=== PATIENT | male | born 1965 | race Caucasian/White ===

== ENCOUNTER → 2017-01-14 | Outpatient (CLI) | payer BC ==
[~2017-01-14] MED LIST: ATV1 PO; CRD4 PO; CYCL10TA6 PO; DULO1CAP39 PO; OXYC1TAB3 PO; PANT40TA PO; RXC5 PO; SIMV20TA2 PO; TRAM-10 PO
--- NOTE | 2017-01-14 17:19 | DIAGNOSTIC IMAGING REPORT ---
L VENOUS DOPP LOWER EXT UNILAT CLINICAL HISTORY: L LEG PAIN, R/O DVT pain. Edema. TECHNIQUE: Venous Doppler COMPARISON STUDY: None FINDINGS: Normal venous Doppler exam. Compressibility and augmentation characteristics are unremarkable. There is a clinically palpable nodule which corresponds to a small noncompressible superficial branch of the greater saphenous vein. This appears to show superficial thrombosis. IMPRESSION: 1. Study is negative for deep venous thrombosis. 2. At the site of clinical discomfort/palpable nodularity is a small section of thrombosed superficial vein originating from the greater saphenous vein. This consistent with a small focus of superficial thrombophlebitis The above report was generated using voice recognition software. It may contain grammatical, syntax or spelling errors. Electronically signed by: Odell Briggs M.D. 01/14/2017 5:18 PM Dictated Date/Time: 01/14/2017 5:16 PM
== END | disposition home or self-care (01) ==
LOC: C.ULTR 16:36
PROVIDERS: ATTEND Student in an Organized Health Care Education/Training Program
DX: M79.605 Pain in left leg (principal); I82.812 Embolism and thrombosis of superficial veins of left lower extremity

== ENCOUNTER 2017-06-02 20:02 | Emergency (ER) | payer BC ==
[~2017-06-02] VITALS: Ht 185.4 cm; Wt 138.8 kg
[2017-06-02 20:06] VITALS: TEMP 37.2; Ht 185.4 cm; Wt 138.8 kg
[2017-06-02] MEDS ORDERED: IBUPROFEN 200 MG TAB PO STA (20:46)
[2017-06-02] MEDS ORDERED: HYDROmorphone INJ 1 MG/ML SYR IM ONE (21:00)
--- NOTE | 2017-06-02 21:36 | EMERGENCY ROOM VISIT NOTE ---
History First contact with patient: 20:36 Chief Complaint: SHOULDER PAIN Stated Complaint: INJURY TO R SHOULDER History of Present Illness The patient is a 51 year old male who presents to the Emergency Room with complaints of severe right shoulder pain that started yesterday when he was lifting a heavy object. The patient reached out in front of him with his right arm to shredder picker something heavy. He was trying to swing around to his right side he felt a pop and intense pain in his right shoulder. Initially, he had some numbness over the pain in the shoulder. That has subsided. The pain is significant with any movement. He has tried Percocet at home with no relief. 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 Review of Systems 6 system review negative. Please see pertinent positives in the history of present illness section. Past Medical/Surgical History Medical Problems: (1) Lumbar stenosis with neurogenic claudication Hypertension Social History Smoking Status: Never Smoker Current/Historical Medications Scheduled Methylprednisolone (Medrol Dosepak), 1 PKT PO UD Pantoprazole (Protonix), 40 MG PO HS Simvastatin (Zocor), 20 MG PO QPM Scheduled PRN Oxycodone Ir (Roxicodone Ir), 1-2 TAB PO Q4H PRN for Pain Tramadol (Ultram), 100 MG PO Q8H PRN for Pain Allergies Coded Allergies: No Known Allergies (Unverified , 06/02/17) Physical Exam Vital Signs Date Time Temp Pulse Resp B/P (MAP) Pulse Ox O2 Delivery O2 Flow Rate FiO2 06/02/17 22:27 104 18 136/93 95 Room Air 06/02/17 20:06 37.2 107 18 175/98 96 Room Air Physical Exam GENERAL: 51-year-old male, pacing, obviously in distress, SKIN: The skin was without rashes, erythema, edema, or bruising. HEAD: Normocephalic atraumatic. HEART: Regular rate and rhythm without murmurs gallops or rubs. LUNGS: Clear to auscultation bilaterally without wheezes, rales or rhonchi. No accessory muscle use. MUSCULOSKELETAL: RUE: Severe tenderness to palpation over the anterior aspect and the lateral aspect of the right shoulder. Range of motion of the shoulder is severely limited secondary to pain. Sensation over the deltoid is intact. Cad Designer strength 5/5. Radial pulse intact. Sensation in the fingers is intact. NEURO: Patient was alert and oriented to person place and time. Normal sensation to touch. No focal neurological deficits. Medical Decision & Procedures ER Provider Diagnostic Interpretation: Right shoulder x-ray Patient Name: SETH CASTRO Unit Number: [id number] Dictated: 06/02/172134 Transcribed: 06/02/172134 JRB Printed Date/Time: [~ rep prt dt]/[~ rep prt tm] [~ rep ct labl] - [~ rep ct ivnm] [facility] Radiology [place] [address] Dictated: 06/02/172134 Transcribed: 06/02/172134 JRB Printed Date/Time: [~ rep prt dt]/[~ rep prt tm] [~ rep ct labl] - [~ rep ct ivnm] IMPRESSION: 1. No acute fracture or dislocation. 2. Right shoulder rotator cuff calcific tendinosis. The above report was generated using voice recognition software. It may contain grammatical, syntax or spelling errors. Electronically signed by: Sorin Carbajal M.D. 06/02/2017 9:37 PM Dictated Date/Time: 06/02/2017 9:35 PM The status of this report is Signed. Draft = Not yet reviewed or approved by Radiologist. Signed = Reviewed and approved by Radiologist. <AttendingPhy></AttendingPhy> <FamilyPhy>Karly Oliveros D.O.</FamilyPhy> < PrimaryPhy>Karly Oliveros D.O.</PrimaryPhy> <UnitNumber>[id number]</ UnitNumber> <VisitNumber>[id number]</VisitNumber> <PatientName>SETH CASTRO </PatientName> <DateOfBirth>1965</DateOfBirth> <Location>[facility]</Location> <ServiceDate>06/02/17</ServiceDate> <MNE>ESINDI</MNE> <OrderingPhy>Georgina Anderson PA-C</OrderingPhy> <OrderingPhyMNE>f rep ord dr pineda</OrderingPhyMNE> < DictatingPhyMNE>f rep dict dr pineda</DictatingPhyMNE> <CCListMNE>f rep ct mne</ CCListMNE> <AdmittingPhyMNE>f pt admit dr pineda</AdmittingPhyMNE> <AttendingPhyMNE >f pt attend dr pineda</AttendingPhyMNE> <ConsultingPhyMNE>f pt consult dr pineda</ConsultingPhyMNE> <FamilyPhyMNE>f pt fam dr pineda</FamilyPhyMNE> <OtherPhyMNE>f pt other dr pineda</OtherPhyMNE> < PrimaryPhyMNE>f pt prim care dr pineda</PrimaryPhyMNE> <ReferringPhyMNE>f pt referring dr pineda</ReferringPhyMNE> Medications Administered Medications (Trade) Dose Ordered Sig/Aristeo Route Start Time Stop Time Status Last Admin Dose Admin Hydromorphone HCl (Dilaudid Inj) 1 mg ONE ONCE IM 06/02/17 21:00 06/02/17 21:01 DC 06/02/17 20:52 1 MG Ibuprofen (Advil Tab) 800 mg NOW STAT PO 06/02/17 20:46 06/02/17 20:49 DC 06/02/17 20:52 800 MG Dexamethasone Sodium Phosphate (Decadron Inj) 10 mg NOW ONCE PO 06/02/17 22:15 06/02/17 22:16 DC 06/02/17 22:12 10 MG Oxycodone HCl (Roxicodone Immediate Rel 5MG Home Pack) 1 homepack UD ONCE PO 06/02/17 22:15 06/02/17 22:16 DC 06/02/17 22:13 1 HOMEPACK Hydromorphone HCl (Dilaudid Tab) 2 mg NOW STAT PO 06/02/17 22:03 06/02/17 22:04 DC 06/02/17 22:12 2 MG ED Course The patient was seen and examined He was medicated with Dilaudid 1 mg IM and Motrin 800 mg by mouth Imaging was performed and reviewed Upon reassessment, the patient was still in intense pain. He was given additional Dilaudid 2 mg tab by mouth. He was also given Decadron 10 mg by mouth. The findings were discussed with the patient He was given an arm sling He was comfortable being discharged home. He was given oxycodone home pack. Discharge instructions were reviewed, and he was discharged in good condition Medical Decision Differential diagnosis: Dislocation, fracture, contusion, ligamentous injury This patient is a 51-year-old male presents to the emergency department with severe pain in the right shoulder. On exam, he had significant decreased range of motion. X-rays were negative for fracture. I believe this is likely a significant rotator cuff injury. I had a hard time getting the patient's pain under control, however he was comfortable enough to go home. He will follow up with orthopedics tomorrow. He will keep the sling in place. He was also instructed to sleep in an upright position. He will return with any new or concerning symptoms. This chart was completed in part utilizing [employer] Speech Voice Recognition software. Attempts were made to minimize the grammatical errors, random word insertions, pronoun errors and incomplete sentences. Any formal questions or concerns about the content, text or information contained within the body of this dictation should be directly addressed to the provider for clarification. Impression Primary Impression: Right shoulder injury Departure Information Dispostion Home / Self-Care Condition GOOD Prescriptions Methylprednisolone (MEDROL DOSEPAK) 4 Mg Scotty 1 PKT PO UD for 6 Days, #1 PKT Prov: Georgina Anderson PA-C 06/02/17 Oxycodone Ir (Roxicodone Ir) 5 Mg Tab 1-2 TAB PO Q4H Y for Pain, #20 TAB For Initial Treatment Prov: Georgina Anderson PA-C 06/02/17 Referrals Karly Oliveros D.O. (PCP) Mani Alston M.D. Patient Instructions [facility] Additional Instructions You have been evaluated in the emergency department for severe pain in the right shoulder. This is likely a rotator cuff injury. Ibuprofen 800 mg every 8 hours Please take Medrol Dosepak as prescribed Oxycodone Immediate Release (OxyIR) 5mg: Take 1-2 pills every four hours for pain. Avoid alcohol, operating machinery or dangerous equipment, working on ladders or roofs, DRIVING, or situations where being under the influence may be dangerous. It is recommended to use an [id number] stool softener such as Colace, 100mg twice daily while taking this medication to avoid constipation. Please rest the arm in a sling Apply ice for 20 minute intervals at a time over the next 48 hours It is easier/less painful sleeping in a more upright position such as a recliner Please do not hesitate to return to the emergency department with any new, worsening or concerning symptoms Call back to the emergency department if you have difficulty getting an appointment the number here is [phone]
--- NOTE | 2017-06-02 21:38 | DIAGNOSTIC IMAGING REPORT ---
R SHOULDER MIN 2 VIEWS ROUTINE HISTORY: 51 years-old Male R anterior and lateral shoulder pain acute right shoulder pain without reported trauma. COMPARISON: Chest radiographs 07/06/2015 TECHNIQUE: 3 views of the right shoulder FINDINGS: 1.4 cm linear calcification adjacent to the greater tuberosity posterior facet is noted, likely involving the infraspinatus. No acute fracture or dislocation identified. Mild glenohumeral with moderate AC joint degenerative changes. Marginal spurring is seen about the acromium and distal clavicle. Soft tissues are unremarkable. IMPRESSION: 1. No acute fracture or dislocation. 2. Right shoulder rotator cuff calcific tendinosis. The above report was generated using voice recognition software. It may contain grammatical, syntax or spelling errors. Electronically signed by: Sorin Carbajal M.D. 06/02/2017 9:37 PM Dictated Date/Time: 06/02/2017 9:35 PM
[2017-06-02] MEDS ORDERED: HYDROmorphone HCL 2 MG TAB PO STA (22:03)
[2017-06-02] MEDS ORDERED: OXYC1TAB3 PO (22:06)
[2017-06-02] MEDS ORDERED: METH4PAK PO (22:06)
[2017-06-02] MEDS ORDERED: DEXAMETHASONE SOD INJ 4 MG/ML VIAL PO ONE (22:15)
[2017-06-02] MEDS ORDERED: OXYCODONE IR HOME PACK PO ONE (22:15)
[2017-06-02 22:27] VITALS: BP 136/93; PULSE 104; O2SAT 95
== END 2017-06-02 22:29 | disposition home or self-care (01) ==
LOC: C.EDB 20:03 → C.EDD 22:29
DX: S49.91XA Unspecified injury of right shoulder and upper arm, initial encounter (principal); X50.0XXA Overexertion from strenuous movement or load, initial encounter; I10 Essential (primary) hypertension

== ENCOUNTER 2021-09-22 09:39 | Inpatient (IN) ==
[2021-09-22] MEDS ORDERED: ONDANSETRON INJ 2 MG/ML 2 ML VIAL IV STA (09:59)
[2021-09-22] MEDS ORDERED: HYDROmorphone INJ 1 MG/ML SYRINGE IV STA (09:59)
[2021-09-22] MEDS ORDERED: SODIUM CHLORIDE 0.9% 1000ML 1,000 ML IV STA (09:59)
[2021-09-22 10:29] LABS: Basophils # (auto) 0.06 K/uL (0-0.2); Basophils % (auto) 0.7 %; Eosinophils # (auto) 0.31 K/uL (0-0.50); Eosinophils % (auto) 3.7 %; Hematocrit (blood only) 43.6 % (40.1-51.0); Hemoglobin 15.2 g/dl (14.0-18.0); Immature Granulocytes # (auto) 0.03 K/uL (0.00-0.02); Immature Granulocytes % (auto) 0.4 %; Lymphocytes # (auto) 1.06 K/uL (1.2-3.4); Lymphocytes % (auto) 12.7 %; Mean Corpuscular Hgb Conc 34.9 g/dL (32.0-36.0); Mean Platelet Volume 9.5 fL (9.4-12.4); Monocytes # (auto) 0.79 K/uL (0.24-0.82); Monocytes % (auto) 9.5 %; Neutrophils # (auto) 6.09 K/uL (1.4-6.5); Platelet Count 304 K/uL (130-400); RDW Coefficient of Variation 12.4 % (11.5-14.5); RDW Standard Deviation 38.5 fL (36.4-46.3); Red Blood Count 5.07 M/uL (4.63-6.08); White Blood Count 8.34 K/ul (4.8-10.8)
[2021-09-22 10:53] LABS: Albumin Globulin Ratio 1.4 (0.9-2); Albumin Level 4.2 gm/dl (3.4-5.0); BUN Creatinine Ratio 13.8 (10-20); Bilirubin,Total 0.8 mg/dl (0.2-1.0); Calcium 9.4 mg/dl (8.5-10.1); Creatinine Clr Calc Pharmacy 73.7 ml/min; Est GFR (Non-African American) 47.5 ml/min; Potassium 4.6 mmol/L (3.5-5.1); Total Protein 7.2 gm/dl (6.0-8.3)
--- NOTE | 2021-09-22 11:13 | Emergency Department Note ---
History of Present Illness General Chief complaint: Kidney Stone Stated complaint: KIDNEY STONE Time Seen by Provider: 09/22/21 09:44 History of Present Illness Maximum Pain Intensity: 9 56-year-old male who presents to the emergency department with complaint of persistent and severe left flank pain from a kidney stone. The patient reports that he is now approximately 1.5 weeks with this pain. The patient was initially seen in our emergency department on 09/16/[address] showing a distal left ureteral calculus. He returned on 09/19 and 09/20 with ultrasounds on both visits that did not show any significant hydronephrosis. The patient has followed with his PCP, Dr. Navarro, who tried to consult urology, but the patient reports that they would not see him. He returns because of u ncontrollable pain rated a 10 out of 10. Patient has had nausea without vomiting. He denies any fever or chills. Home Medications Medication Instructions Recorded Confirmed Type doxazosin 4 mg tablet 4 mg PO DAILY 07/26/18 09/22/21 History pantoprazole 40 mg tablet,delayed 40 mg PO DAILY 07/26/18 09/22/21 History release simvastatin 20 mg tablet 20 mg PO HS 07/26/18 09/22/21 History ondansetron 4 mg disintegrating 4 mg PO Q6H PRN #15 tab 09/16/21 09/22/21 Rx tablet oxycodone 5 mg tablet 5 mg PO Q4H PRN #15 tab 09/16/21 09/22/21 Rx tamsulosin 0.4 mg capsule (Flomax) 0.4 mg PO DAILY #10 cap 09/16/21 09/22/21 Rx lisinopril 2.5 mg tablet 2.5 mg PO DAILY 09/19/21 09/22/21 History oxycodone 5 mg tablet 10 mg PO Q6H PRN #14 tab 09/19/21 09/22/21 Rx apixaban 5 mg (74 tabs) tablets in 5 mg PO BID #74 ea 09/20/21 09/22/21 Rx a dose pack (Eliquis) glipizide 2.5 mg-metformin 500 mg 2.5 - 500 tab PO DAILY 09/22/21 09/22/21 History tablet Allergies Allergy/AdvReac Type Severity Reaction Status Date / Time No Known Allergies Allergy Verified 09/19/21 00:03 Past Med/Surg History Medical History (Updated 09/22/21 @ 15:57 by Taisha Carlos PA-C) Acute deep vein thrombosis (DVT) of left lower extremity Kidney stones Lumbar stenosis with neurogenic claudication Surgical History No pertinent past surgical history Family History Other Family history non-contributory Social History Smoking Status: Former smoker (30 y ago) Tobacco Type: Cigarettes Hx Substance Use: No Preferred Language: Arabic marital status: Current Living Situation: Spouse current occupational status: employed Feels Safe at Home: Yes Review of Systems 10 system review was performed and was negative except for pertinent positives and negatives as indicated in history of present illness Physical Exam Vital Signs Vital Signs - 24 hr 09/22/21 09:41 09/22/21 09:48 09/22/21 11:40 Temperature 36.6 C Temperature Source Temporal Artery Scan Pulse Rate 98 H Pulse Rate [Apical] Pulse Rate [Radial] 91 H Pulse Rhythm [Apical] Pulse Rhythm [Radial] Regular Pulse Strength [Apical] Respiratory Rate 16 18 Respiratory Effort / Characteristics Non-Labored Respiratory Depth Normal Respiratory Pattern Regular Blood Pressure 179/104 H Blood Pressure [Left Arm] 179/104 H 165/107 H Blood Pressure Mean 129 Blood Pressure Mean [Left Arm] 129 126 Blood Pressure Position [Left Arm] Pulse Oximetry 94 96 Oxygen Delivery Method Room Air Room Air Oxygen Flow Rate Sepsis Recent Fever Within 48 Hours No Sepsis New/Unexplained Change in Mental Status No Sepsis Action Taken by Nursing No Action Required 09/22/21 13:00 09/22/21 13:52 09/22/21 14:03 Temperature 36.7 C Temperature Source Oral Pulse Rate 91 H Pulse Rate [Apical] 89 Pulse Rate [Radial] 92 H Pulse Rhythm [Apical] Regular Pulse Rhythm [Radial] Regular Pulse Strength [Apical] Normal Respiratory Rate 18 18 20 Respiratory Effort / Characteristics Non-Labored Non-Labored Spontaneous Normal for Patient Respiratory Depth Normal Normal Respiratory Pattern Regular Regular Blood Pressure 160/107 H Blood Pressure [Left Arm] 163/105 H 136/90 Blood Pressure Mean Blood Pressure Mean [Left Arm] 124 105 Blood Pressure Position [Left Arm] Semi-fowlers Pulse Oximetry 94 96 97 Oxygen Delivery Method Room Air Room Air Room Air Oxygen Flow Rate Sepsis Recent Fever Within 48 Hours Sepsis New/Unexplained Change in Mental Status Sepsis Action Taken by Nursing 09/22/21 15:33 09/22/21 15:40 09/22/21 15:50 Temperature 36.6 C Temperature Source Temporal Artery Scan Pulse Rate Pulse Rate [Apical] 99 H 83 95 H Pulse Rate [Radial] Pulse Rhythm [Apical] Regular Regular Regular Pulse Rhythm [Radial] Pulse Strength [Apical] Normal Normal Normal Respiratory Rate 14 16 18 Respiratory Effort / Characteristics Non-Labored Spontaneous Non-Labored Spontaneous Non-Labored Spontaneous Respiratory Depth Normal Normal Normal Respiratory Pattern Regular Regular Regular Blood Pressure Blood Pressure [Left Arm] 158/102 H 129/71 120/91 Blood Pressure Mean Blood Pressure Mean [Left Arm] 120 90 100 Blood Pressure Position [Left Arm] Semi-fowlers Semi-fowlers Semi-fowlers Pulse Oximetry 99 99 96 Oxygen Delivery Method Oxymask Room Air Room Air Oxygen Flow Rate 6 Sepsis Recent Fever Within 48 Hours Sepsis New/Unexplained Change in Mental Status Sepsis Action Taken by Nursing 09/22/21 16:00 Temperature Temperature Source Pulse Rate Pulse Rate [Apical] 89 Pulse Rate [Radial] Pulse Rhythm [Apical] Regular Pulse Rhythm [Radial] Pulse Strength [Apical] Normal Respiratory Rate 20 Respiratory Effort / Characteristics Non-Labored Spontaneous Respiratory Depth Normal Respiratory Pattern Regular Blood Pressure Blood Pressure [Left Arm] 133/90 Blood Pressure Mean Blood Pressure Mean [Left Arm] 104 Blood Pressure Position [Left Arm] Semi-fowlers Pulse Oximetry 95 Oxygen Delivery Method Room Air Oxygen Flow Rate Sepsis Recent Fever Within 48 Hours Sepsis New/Unexplained Change in Mental Status Sepsis Action Taken by Nursing CONSTITUTIONAL: Obese male that appears in severe discomfort. HEENT: No scleral icterus or conjunctival injection/pallor. RESPIRATORY: Clear to auscultation bilaterally with no wheezing, crackles, rhonchi or stridor. CARDIOVASCULAR: Regular rate and rhythm with no murmurs, rubs or gallops. GASTROINTESTINAL: Bowel sounds present in all quadrants. No abdominal tenderness to palpation or CVA tenderness. MUSCULOSKELETAL: Full range of motion of all joints without discomfort. No tenderness to palpation through the ribs or thoracolumbar spine. INTEGUMENTARY: No rash or other significant dermatologic conditions noted. HEMATOLOGIC: No ecchymosis or petechiae. PSYCHIATRIC: Positive affect. NEUROLOGIC: No focal neurologic deficits noted. Course Course Patient history and physical exam were performed. Nurses notes were reviewed. Vital signs were reviewed, showing a markedly elevated blood pressure. I also reviewed a portion of prior medical records, including confirmation from his first visit on 09/16/2021 that he had a 3 mm distal left ureteral calculus. Two subsequent ultrasound studies did not show evidence for hydronephrosis. IV access was established, and labs were drawn. The patient was hydrated with a liter normal saline, and administered IV Toradol and Zofran. Review of labs shows a normal white count with 3% bands and no left shift. CMP shows mild hyponatremia. Creatinine is elevated at 1.6, and similar to his prior recent labs. Random glucose is also elevated at 151. Urinalysis shows no hematuria or signs of infection. Noncontrast CT of the abdomen and pelvis confirms an obstructing 5 mm distal left ureteral calculus with mild hydroureteronephrosis. Additional nonobstructing bilateral nephrolithiasis is also noted. Findings were discussed with the patient. He was still complaining of severe pain after only about 10 minutes of relief. He was administered additional IV Dilaudid, and subsequently required an additional dose of IV morphine. The case was further discussed with Dr. Soria, ED attending physician, as well as MEDINA Solorio with [facility]. The case was further discuss ed with Dr. Sarmiento, urologist, who agrees to take the patient to the OR for further surgical intervention. Because he is currently on Eliquis, and the case will be later this afternoon, he has recommended observation, therefore admission by the hospitalist service. The case was then further discussed with Dr. Pedersen, [facility] service. Please see their dictations for further treatment and final disposition. COVID-19 test was negative. The patient was administered IV Ancef for coverage prior to his procedure. Administered Medications Discontinued Medications Hydromorphone HCl (Hydromorphone Inj 1 Mg/Ml Syringe) 1 mg IV NOW STA Stop: 09/22/21 10:00 Last Admin: 09/22/21 10:16 Dose: 1 mg Documented by: [id number] Hydromorphone HCl (Hydromorphone Inj 0.5 Mg/0.5 Ml Syr) 0.5 mg IV NOW STA Stop: 09/22/21 11:53 Last Admin: 09/22/21 11:57 Dose: 0.5 mg Documented by: [id number] Sodium Chloride (Nss 1000ml) 1,000 mls @ 999 mls/hr IV .Q1H1M STA Stop: 09/22/21 10:59 Last Infusion: 09/22/21 11:17 Dose: 0 mls/hr Documented by: [id number] Admin: 09/22/21 10:16 Dose: 999 mls/hr Documented by: [id number] Cefazolin Sodium (Ancef 2000mg) 2,000 mg in 15 mls @ 3.75 mls/min IV PREOP ONE Stop: 09/22/21 13:48 Last Admin: 09/22/21 14:50 Dose: 3.75 mls/min Documented by: [id number] Morphine Sulfate (Morphine Sulfate 10 Mg/Ml Carp/Vial) 6 mg IV NOW STA Stop: 09/22/21 12:32 Last Admin: 09/22/21 12:48 Dose: Not Given Documented by: [id number] Morphine Sulfate (Morphine Sulfate 4 Mg/Ml 1 Ml Carp\Vial) Confirm Administered Dose 4 mg .ROUTE .STK-MED ONE Stop: 09/22/21 12:44 Last Admin: 09/22/21 12:47 Dose: 4 mg Documented by: [id number] Morphine Sulfate (Morphine Sulfate 2 Mg/Ml Carp) Confirm Administered Dose 2 mg .ROUTE .STK-MED ONE Stop: 09/22/21 12:45 Last Admin: 09/22/21 12:47 Dose: 2 mg Documented by: [id number] Ondansetron HCl (Ondansetron Inj 2 Mg/Ml 2 Ml Vial) 4 mg IV NOW STA Stop: 09/22/21 10:00 Last Admin: 09/22/21 10:16 Dose: 4 mg Documented by: [id number] Medical Decision Making Medical Records Attestation: I reviewed the patient's medical records. Home Medications Current Medication List: was personally reviewed by me Laboratory Data Attestation: I reviewed the patient's lab results. Result diagrams: 09/22/21 10:10 09/22/21 10:10 Lab Results 09/22/21 09/22/21 09/22/21 Range/Units 10:10 10:10 12:00 WBC 8.34 (4.8-10.8) K/ul RBC 5.07 (4.63-6.08) M/uL Hgb 15.2 (14.0-18.0) g/dl Hct 43.6 (40.1-51.0) % MCV 86.0 (80.0-100.0) fL MCH 30.0 (25.0-34.0) pg MCHC 34.9 (32.0-36.0) g/dL RDW Std Deviation 38.5 (36.4-46.3) fL RDW Coeff of Kirk 12.4 (11.5-14.5) % Plt Count 304 (130-400) K/uL MPV 9.5 (9.4-12.4) fL Immature Gran % (Auto) 0.4 % Neut % (Auto) 73.0 % Lymph % (Auto) 12.7 % [place] % (Auto) 9.5 % Eos % (Auto) 3.7 % Baso % (Auto) 0.7 % Neut # (Auto) 6.09 (1.4-6.5) K/uL Lymph # (Auto) 1.06 L (1.2-3.4) K/uL [place] # (Auto) 0.79 (0.24-0.82) K/uL Eos # (Auto) 0.31 (0-0.50) K/uL Baso # (Auto) 0.06 (0-0.2) K/uL Immature Gran # (Auto) 0.03 H (0.00-0.02) K/uL Sodium 134 L (136-145) mmol/L Potassium 4.6 (3.5-5.1) mmol/L Chloride 102 (98-107) mmol/L Carbon Dioxide 25 (21-32) mmol/L Anion Gap 7 (3-11) BUN 22 (6-23) mg/dl Creatinine 1.60 H (0.6-1.4) mg/dl Est Cr Clr Drug Dosing 73.7 ml/min Est GFR ( Amer) 55.0 ml/min Est GFR (Non-Af Amer) 47.5 ml/min BUN/Creatinine Ratio 13.8 (10-20) Glucose 151 H (70-99(Fasting)) mg/dl POC Glucose (70-99) mg/dl Calcium 9.4 (8.5-10.1) mg/dl Total Bilirubin 0.8 (0.2-1.0) mg/dl AST 16 (13-39) U/L ALT 17 (7-52) U/L Alkaline Phosphatase 54 (34-104) U/L Total Protein 7.2 (6.0-8.3) gm/dl Albumin 4.2 (3.4-5.0) gm/dl Globulin 3.0 (2.5-4.0) gm/dl Albumin/Globulin Ratio 1.4 (0.9-2) Lipase 39 (11-82) U/L Urine Color Yellow Urine Appearance Clear (Clear) Urine pH 5.0 (4.5-7.5) Ur Specific [place] 1.018 (1.000-1.030) Urine Protein Negative (Negative) Urine Glucose (UA) Negative (Negative) Urine Ketones Negative (Negative) Urine Blood Negative (Negative) Urine Nitrite Negative (Negative) Urine Bilirubin Negative (Negative) Urine Urobilinogen Negative (Negative) Ur Leukocyte Esterase Negative (Negative) SARS-CoV-2, RNA, NAAT (NEGATIVE) 09/22/21 09/22/21 Range/Units 13:21 16:00 WBC (4.8-10.8) K/ul RBC (4.63-6.08) M/uL Hgb (14.0-18.0) g/dl Hct (40.1-51.0) % MCV (80.0-100.0) fL MCH (25.0-34.0) pg MCHC (32.0-36.0) g/dL RDW Std Deviation (36.4-46.3) fL RDW Coeff of Kirk (11.5-14.5) % Plt Count (130-400) K/uL MPV (9.4-12.4) fL Immature Gran % (Auto) % Neut % (Auto) % Lymph % (Auto) % [place] % (Auto) % Eos % (Auto) % Baso % (Auto) % Neut # (Auto) (1.4-6.5) K/uL Lymph # (Auto) (1.2-3.4) K/uL [place] # (Auto) (0.24-0.82) K/uL Eos # (Auto) (0-0.50) K/uL Baso # (Auto) (0-0.2) K/uL Immature Gran # (Auto) (0.00-0.02) K/uL Sodium (136-145) mmol/L Potassium (3.5-5.1) mmol/L Chloride (98-107) mmol/L Carbon Dioxide (21-32) mmol/L Anion Gap (3-11) BUN (6-23) mg/dl Creatinine (0.6-1.4) mg/dl Est Cr Clr Drug Dosing ml/min Est GFR ( Amer) ml/min Est GFR (Non-Af Amer) ml/min BUN/Creatinine Ratio (10-20) Glucose (70-99(Fasting)) mg/dl POC Glucose 93 (70-99) mg/dl Calcium (8.5-10.1) mg/dl Total Bilirubin (0.2-1.0) mg/dl AST (13-39) U/L ALT (7-52) U/L Alkaline Phosphatase (34-104) U/L Total Protein (6.0-8.3) gm/dl Albumin (3.4-5.0) gm/dl Globulin (2.5-4.0) gm/dl Albumin/Globulin Ratio (0.9-2) Lipase (11-82) U/L Urine Color Urine Appearance (Clear) Urine pH (4.5-7.5) Ur Specific [place] (1.000-1.030) Urine Protein (Negative) Urine Glucose (UA) (Negative) Urine Ketones (Negative) Urine Blood (Negative) Urine Nitrite (Negative) Urine Bilirubin (Negative) Urine Urobilinogen (Negative) Ur Leukocyte Esterase (Negative) SARS-CoV-2, RNA, NAAT NEGATIVE (NEGATIVE) Imaging Data Attestation: I personally reviewed and interpreted this imaging study as follows: My Impression: My interpretation of a noncontrast CT of the abdomen and pelvis confirms an obstructing 5 mm distal left ureteral calculus with mild hydroureteronephrosis. Patient also has additional nonobstructing bilateral nephrolithiasis. Radiologist report was also reviewed. Radiologist's Impression: Retrograde Pyelogram 09/22/21 00:00 FL retrograde includes kub CLINICAL HISTORY: Left-sided stone extraction and stent placement. COMPARISON STUDY: Abdomen and pelvis CT 09/22/2021. FLUOROSCOPY TIME: 30 seconds. FINDINGS: 2 fluoroscopic spot images of the abdomen and pelvis demonstrate retrograde opacification of the left renal collecting system with placement of a left ureteral stent. The ureteral stent appears in good position. IMPRESSION: Fluoroscopic assistance provided for left ureteral stent placement which appears in good position. ACT 112: Negative or not required by law. Electronically signed by: Mike Jones M.D. 09/22/2021 3:51 PM Abdomen/Pelvis CT 09/22/21 09:[address] WITHOUT CONTRAST CT DOSE: 1589.95 mGy.cm HISTORY: Acute left-sided flank pain Persistent L flank pain - prob stone TECHNIQUE: Multiaxial CT images of the abdomen and pelvis were performed without contrast. A dose lowering technique was utilized adhering to the principles of ALARA. COMPARISON STUDY: Renal ultrasound 09/21/2021, CT abdomen pelvis 09/16/2021 FINDINGS: Coronary artery calcifications. Mild cardiomegaly. Mild subsegmental bibasilar atelectasis. There is no pneumatosis or pneumoperitoneum. The u nenhanced spleen measures within the upper limits of normal at 13 cm. Unremarkable pancreas, gallbladder and adrenal glands. Hepatic steatosis. No hepatic mass or marginal nodularity to suggest cirrhosis. Trace nonspecific right-sided perinephric stranding. There are several punctate nonobstructing calculi redemonstrated within the bilateral kidneys. 4 mm nonobstructing calculus of the inferior pole left kidney. There is mild left- sided hydroureteronephrosis with perinephric and periureteral inflammation secondary to a persistent obstructing 5 x 3 mm calculus of the distal left ureter just proximal to the ureterovesicular junction. Mild prostamegaly. Partially decompressed urinary bladder with mild wall thickening. Atherosclerosis of the aorta without aneurysm. There is no lymphadenopathy. Small to moderate fat filled inguinal hernias. No lymphadenopathy identified. No bowel obstruction or bowel wall thickening. Colonic diverticulosis. The appendix is reportedly surgically absent. Small fat filled periumbilical hernia with diastases of 2.1 cm. Prior laminectomy with posterior interbody max and screw fusion and discectomy at L4-S1. No evidence of hardware fracture or loosening. IMPRESSION: 1. Mild persistent left-sided hydroureteronephrosis secondary to an obstructing 5 mm calculus of the distal left ureter just proximal to the ureterovesicular junction. 2. Nonobstructing bilateral nephrolithiasis. 3. No bowel obstruction or bowel wall thickening. 4. Hepatic steatosis. 5. Additional findings as above. ACT 112: Negative or not required by law. The above report was generated using voice recognition software. It may contain grammatical, syntax or spelling errors. Electronically signed by: Gilberto Carbajal M.D. 09/22/2021 11:15 AM Blood Pressure Blood Pressure Findings: Elevated blood pressure Blood Pressure Disposition: elevated BP felt to be situational MDM Narrative Patient presents to the emergency department with complaint of persistent pain now for the past 2.5 weeks from a distal left ureteral calculus. The patient does show evidence for a mild acute kidney injury. Urinalysis is not consistent with infection. The case has been discussed with urology, who plans to perform operative management. Impression & Plan Calculus of distal left ureter, JAMES (acute kidney injury), Bilateral nephrolithiasis Discharge Plan Visit Data Chief Complaint: Kidney Stone Stated Complaint: KIDNEY STONE ED Midlevel Provider: Justin Ricardo Discharge Problem: Calculus of distal left ureter, JAMES (acute kidney injury), Bilateral nephrolithiasis Discharge Instructions Interventions: ED Discharge Assessment Last Done: 09/22/21 13:52 Forms Stand Alone Forms: [facility] [employer] [place] Prescriptions Prescriptions: No Action pantoprazole 40 mg tablet,delayed release (DR/EC) 40 mg PO DAILY RF: 0 simvastatin 20 mg tablet 20 mg PO HS RF: 0 doxazosin 4 mg tablet 4 mg PO DAILY RF: 0 ondansetron 4 mg tablet,disintegrating 4 mg PO Q6H PRN (Reason: nausea and vomiting) Qty: 15 RF: 0 oxycodone 5 mg tablet 5 mg PO Q4H PRN (Reason: pain) Qty: 15 RF: 0 tamsulosin [Flomax] 0.4 mg capsule 0.4 mg PO DAILY Qty: 10 RF: 0 lisinopril 2.5 mg tablet 2.5 mg PO DAILY RF: 0 oxycodone 5 mg tablet 10 mg PO Q6H PRN (Reason: pain) Qty: 14 RF: 0 Eliquis 5 mg (74 tabs) tablets,dose pack 5 mg PO BID Qty: 74 RF: 0 glipizide-metformin 2.5-500 mg tablet 2.5 - 500 tab PO DAILY RF: 0 Referrals Referrals: Karly Oliveros DO [Primary Care Provider] -
--- NOTE | 2021-09-22 11:17 | CT Scan Report ---
ABDOMEN AND PELVIS CT WITHOUT CONTRAST CT DOSE: 1589.95 mGy.cm HISTORY: Acute left-sided flank pain Persistent L flank pain - prob stone TECHNIQUE: Multiaxial CT images of the abdomen and pelvis were performed without contrast. A dose lo wering technique was utilized adhering to the principles of ALARA. COMPARISON STUDY: Renal ultrasound 09/21/2021, CT abdomen pelvis 09/16/2021 FINDINGS: Coronary artery calcifications. Mild cardiomegaly. Mild subsegmental bibasilar atelectasis. There is no pneumatosis or pneumoperitoneum. The unenhanced spleen measures within the upper limits of normal at 13 cm. Unremarkable pancreas, gallbladder and adrenal glands. Hepatic steatosis. No hepa tic mass or marginal nodularity to suggest cirrhosis. Trace nonspecific right-sided perinephric stranding. There are several punctate nonobstructing calcul i redemonstrated within the bilateral kidneys. 4 mm nonobstructing calculus of the inferior pole left kidney. There is mild left-sided hydroureteronephrosis with perinephric and periureteral inflammatio n secondary to a persistent obstructing 5 x 3 mm calculus of the distal left ureter just proximal to the ureterovesicular junction. Mild prostamegaly. Partially decompressed urinary bladder with mild wa ll thickening. Atherosclerosis of the aorta without aneurysm. There is no lymphadenopathy. Small to m oderate fat filled inguinal hernias. No lymphadenopathy identified. No bowel obstruction or bowel wall thickening. Colonic diverticulosis. The appendix is reportedly davis gically absent. Small fat filled periumbilical hernia with diastases of 2.1 cm. Prior laminectomy wit h posterior interbody max and screw fusion and discectomy at L4-S1. No evidence of hardware fracture or loosening. IMPRESSION: 1. Mild persistent left-sided hydroureteronephrosis secondary to an obstructing 5 mm calculus of the distal left ureter just proximal to the ureterovesicular junction. 2. Nonobstructing bilateral nephrolithiasis. 3. No bowel obstruction or bowel wall thickening. 4. Hepatic steatosis. 5. Additional findings as above. ACT 112: Negative or not required by law. The above report was generated using voice recognition software. It may contain grammatical, syntax o r spelling errors. Electronically signed by: Gilberto Carbajal M.D. 09/22/2021 11:15 AM
[2021-09-22] MEDS ORDERED: HYDROmorphone INJ 0.5 MG/0.5 ML SYR IV STA (11:52)
[2021-09-22 12:12] LABS: Appearance Urine Clear (Clear); Bilirubin Urine Negative (Negative); Blood Urine Negative (Negative); Color Urine Yellow; Glucose Urine UA Negative (Negative); Ketones Urine Negative (Negative); Leukocyte Esterase Urine Negative (Negative); Nitrite Urine Negative (Negative); Protein Urine Negative (Negative); Specific Gravity Urine 1.018 (1.000-1.030); Urobilinogen Urine Negative (Negative)
[2021-09-22] MEDS ORDERED: MoRPHine SULFATE 10 MG/ML CARP/VIAL IV STA (12:31)
[2021-09-22] MEDS ORDERED: MoRPHine SULFATE 4 MG/ML 1 ML CARP\\VIAL ONE (12:43)
[2021-09-22] MEDS ORDERED: MoRPHine SULFATE 2 MG/ML CARP ONE (12:44)
[2021-09-22] MEDS ORDERED: ONDANSETRON INJ 2 MG/ML 2 ML VIAL ONE (13:15)
[2021-09-22] MEDS ORDERED: PROPOFOL IV EMULSION 10 MG/ML 20 ML VIAL IV ONE ×2 (13:15→15:06)
[2021-09-22] MEDS ORDERED: DEXAMETHASONE SOD INJ 4 MG/ML VIAL ONE (13:15)
[2021-09-22] MEDS ORDERED: fentaNYL citrate 100 MCG/2 ML VIAL ONE ×2 (13:16→14:14)
[2021-09-22] MEDS ORDERED: LIDOCAINE 2% 2 ML VIAL/AMP(20MG/ML) INFIL ONE (13:16)
--- NOTE | 2021-09-22 13:20 | History & Physical Report ---
Date of Service September 22, 2021 Assessment & Plan (1) Kidney stone: Plan: - 5 mm stone in distal left ureter just proximal to the UVJ. Mild persistent left-sided hydroureteronephrosis secondary to obstruction. - Urology brought patient from the ED to OR today for cystoscopy, left retrograde pyelogram, left ureteral stent placement. - Obs overnight for bleeding complications. Restart Eliquis tonight or tomorrow AM per urology recommendations. - Supportive care w/ pain medication, anti emetics, IVF. ABX per urology. (2) JAMES (acute kidney injury): Plan: - 2/2 obstruction, Cr 1.60, baseline appears to be 1.3. - IVF, monitor renal function AM labs. - Avoid nephrotoxins, renally dose as able. (3) DVT (deep venous thrombosis): Plan: - Diagnosed on 09/20, on Eliquis. Did take AM dose. - Restart Eliquis tonight or tomorrow. (4) Hyperlipidemia: Plan: - Continue statin. (5) DM2 (diabetes mellitus, type 2): Plan: - Hold glipizide/metformin. - Accuchecks ACHS with SSI. (6) BPH (benign prostatic hyperplasia): Plan: - Continue flomax, doxazosin. (7) Hypertension: Plan: - Hold lisinopril until JAMSE resolves. (8) GERD (gastroesophageal reflux disease): Plan: - Continue pantoprazole 40 mg daily. Plan: - Admit to med/surg. - SCDs for DVT ppx. - Full Code. History of Present Illness Chief Complaint: flank pain Primary Care Provider: DO Pavan Whelan Randall is a 56-year-old male with a past medical history of DVT diagnosed 2 days ago/currently on Eliquis, hypertension hyperlipidemia, diabetes, BPH, and GERD who presents today with left flank pain. He began experiencing left back/flank pain with associated nausea 1.5 ago. He has presented to the ED several times, initially on 09/16 when a 3 mm distal ureteral stone was seen on CT. He was provided pain medication and Flomax to assist with passing stone, however his pain has only worsened since then. Dnies fever/chills, but has been diaphroetic the past day. No abdominal pain, vomiting, urinary retention, hematuria. In ED, he is hypertensive 165/107 HR 91 and he is in quite a bit of pain. Labs largely unremarkable, does have a creatinine 1.60 (baseline 1.3), UA without evidence of infection. CT A/P with showed mild persistent left-sided hydronephrosis secondary to obstructing 5 mm stone in the distal left ureter, just proximal to the UVJ. Allergies Allergy/AdvReac Type Severity Reaction Status Date / Time No Known Allergies Allergy Verified 09/19/21 00:03 Home Medications Medication Instructions Recorded Confirmed Type doxazosin 4 mg tablet 4 mg PO DAILY 07/26/18 09/22/21 History pantoprazole 40 mg tablet,delayed 40 mg PO DAILY 07/26/18 09/22/21 History release simvastatin 20 mg tablet 20 mg PO HS 07/26/18 09/22/21 History ondansetron 4 mg disintegrating 4 mg PO Q6H PRN #15 tab 09/16/21 09/22/21 Rx tablet oxycodone 5 mg tablet 5 mg PO Q4H PRN #15 tab 09/16/21 09/22/21 Rx tamsulosin 0.4 mg capsule (Flomax) 0.4 mg PO DAILY #10 cap 09/16/21 09/22/21 Rx lisinopril 2.5 mg tablet 2.5 mg PO DAILY 09/19/21 09/22/21 History oxycodone 5 mg tablet 10 mg PO Q6H PRN #14 tab 09/19/21 09/22/21 Rx apixaban 5 mg (74 tabs) tablets in 5 mg PO BID #74 ea 09/20/21 09/22/21 Rx a dose pack (Eliquis) glipizide 2.5 mg-metformin 500 mg 2.5 - 500 tab PO DAILY 09/22/21 09/22/21 History tablet Past Med/Surg History Medical History (Updated 09/22/21 @ 15:57 by Taisha Carlos PA-C) Acute deep vein thrombosis (DVT) of left lower extremity Kidney stones Lumbar stenosis with neurogenic claudication Surgical History No pertinent past surgical history Family History Other Family history non-contributory Social History Smoking Status: Former smoker (30 y ago) Tobacco Type: Cigarettes Hx Substance Use: No Preferred Language: Upper Sorbian marital status: Current Living Situation: Spouse current occupational status: employed Feels Safe at Home: Yes Review of Systems Review of Systems: Constitutional: No fever/chills, weakness, fatigue, myalgias, anorexia, night sweats Eyes: No diplopia, no worsening or blurred vision ENT: normal hearing, no trouble swallowing Respiratory: No cough, sputum, dyspnea at rest or on exertion Cardiovascular: No chest pain, tightness or palpitations Abdomen: nausea without vomiting, diarrhea or constipation : left flank pain; Denies dysuria, hematuria, increased urgency/frequency, urinary retention Musculoskeletal: No joint pain, calf pain, swelling Neurologic: No weakness, numbness/tingling, or balance problems Psychiatric: No anxiety or depression Skin: No rash or itch Physical Exam Physical Exam: General: awake, alert, no apparent distress, but appears very uncomfortable. Head: Normocephalic, atraumatic ENT: PERRL, EOMI, no pharyngeal exudate, mucous membranes moist Chest: Clear to auscultation, on room air, no adventitious breath sounds Cardiac: Regular rate and rhythm, no murmur, no JVD, normal peripheral pulses, good capillary refill Abdominal: NABS x 4 quadrants, soft, nontender to palpation, no rebound, guarding or tenderness Extremities: Normal inspection, no peripheral edema or erythema, calfs nontender to palpation Psych: Normal mood and affect Neuro: AAO x 3, strength intact bilaterally and rated 5/5, no motor deficits, speech is clear, no peripheral sensory deficits Skin: no rash or erythema Results & Data Results & Data ([facility]) Vital Signs (Past 12 Hours) Vital Signs Temp Pulse Pulse Resp BP BP Pulse Ox 09/22/21 11:40 91 H 18 165/107 H 96 09/22/21 09:48 179/104 H 09/22/21 09:41 36.6 C 98 H 16 179/104 H 94 Laboratory Results Abnormal lab results 09/22/21 09/22/21 Range/Units 10:10 10:10 Lymph # (Auto) 1.06 L (1.2-3.4) K/uL Immature Gran # (Auto) 0.03 H (0.00-0.02) K/uL Sodium 134 L (136-145) mmol/L Creatinine 1.60 H (0.6-1.4) mg/dl Glucose 151 H (70-99(Fasting)) mg/dl Diagnostic Findings Abdomen/Pelvis CT 09/22/21 09:[address] WITHOUT CONTRAST CT DOSE: 1589.95 mGy.cm HISTORY: Acute left-sided flank pain Persistent L flank pain - prob stone TECHNIQUE: Multiaxial CT images of the abdomen and pelvis were performed without contrast. A dose lowering technique was utilized adhering to the principles of ALARA. COMPARISON STUDY: Renal ultrasound 09/21/2021, CT abdomen pelvis 09/16/2021 FINDINGS: Coronary artery calcifications. Mild cardiomegaly. Mild subsegmental bibasilar atelectasis. There is no pneumatosis or pneumoperitoneum. The unenhanced spleen measures within the upper limits of normal at 13 cm. Unremarkable pancreas, gallbladder and adrenal glands. Hepatic steatosis. No hepatic mass or marginal nodularity to suggest cirrhosis. Trace nonspecific right-sided perinephric stranding. There are several punctate nonobstructing calculi redemonstrated within the bilateral kidneys. 4 mm nonobstructing calculus of the inferior pole left kidney. There is mild left- sided hydroureteronephrosis with perinephric and periureteral inflammation secondary to a persistent obstructing 5 x 3 mm calculus of the distal left ureter just proximal to the ureterovesicular junction. Mild prostamegaly. Partially decompressed urinary bladder with mild wall thickening. Atherosclerosis of the aorta without aneurysm. There is no lymphadenopathy. Small to moderate fat filled inguinal hernias. No lymphadenopathy identified. No bowel obstruction or bowel wall thickening. Colonic diverticulosis. The appendix is reportedly surgically absent. Small fat filled periumbilical hernia with diastases of 2.1 cm. Prior laminectomy with posterior interbody max and screw fusion and discectomy at L4-S1. No evidence of hardware fracture or loosening. IMPRESSION: 1. Mild persistent left-sided hydroureteronephrosis secondary to an obstructing 5 mm calculus of the distal left ureter just proximal to the ureterovesicular junction. 2. Nonobstructing bilateral nephrolithiasis. 3. No bowel obstruction or bowel wall thickening. 4. Hepatic steatosis. 5. Additional findings as above. ACT 112: Negative or not required by law. The above report was generated using voice recognition software. It may contain grammatical, syntax or spelling errors. Electronically signed by: Gilberto Carbajal M.D. 09/22/2021 11:15 AM Code Status & VTE Plan Code Status Full Code. PG Care Time/CCT Total # of Minutes Spent Total Time Spent with Patient: Total time spent is greater than 50% in coordination of care (as documented) at patient's floor/unit and/or counseling patient: Coding Level of Care Code 99282 Initial Inpt Care Lvl 2 Diagnoses Kidney stone N20.0 JAMES (acute kidney injury) N17.9 DVT (deep venous thrombosis) I82.409 Hyperlipidemia E78.5 DM2 (diabetes mellitus, type 2) E11.9 BPH (benign prostatic hyperplasia) N40.0 GERD (gastroesophageal reflux disease) K21.9 Hypertension I10
--- NOTE | 2021-09-22 13:21 | Anesthesiology Consultation ---
Date of Service September 22, 2021 Assessment & Plan Chart Review Chart Review: Acceptable Risk for Surgery Consults Requested none ASA ASA3 Proposed Anesthesia Anesthesia Type: MAC Risk / Benefits Reviewed With: PT / POA / Parent / Guardian, Accepts Plan and Informed Consent Obtained History Surgery Operation Date: 09/22/21 14:15 Proposed Procedures p Cystoscopy, Left Retrograde Pyelogram, Left Stent Insertion, Possible Ureteroscopy, Laser Litho Stone Treatment - Reji Sarmiento, DO Height/Weight Height: 6 ft Weight: 136.3 kg Allergies Allergy/AdvReac Type Severity Reaction Status Date / Time No Known Allergies Allergy Verified 09/19/21 00:03 Medications Home Medications Medication Instructions Recorded Confirmed Last Taken doxazosin 4 mg tablet 4 mg PO DAILY 07/26/18 09/22/21 09/22/21 pantoprazole 40 mg tablet,delayed 40 mg PO DAILY 07/26/18 09/22/21 09/22/21 release simvastatin 20 mg tablet 20 mg PO HS 07/26/18 09/22/21 09/21/21 ondansetron 4 mg disintegrating 4 mg PO Q6H PRN #15 tab 09/16/21 09/22/21 09/22/21 tablet oxycodone 5 mg tablet 5 mg PO Q4H PRN #15 tab 09/16/21 09/22/21 09/21/21 tamsulosin 0.4 mg capsule (Flomax) 0.4 mg PO DAILY #10 cap 09/16/21 09/22/21 09/22/21 lisinopril 2.5 mg tablet 2.5 mg PO DAILY 09/19/21 09/22/21 09/22/21 oxycodone 5 mg tablet 10 mg PO Q6H PRN #14 tab 09/19/21 09/22/21 Unknown apixaban 5 mg (74 tabs) tablets in 5 mg PO BID #74 ea 09/20/21 09/22/21 09/22/21 09:00 a dose pack (Eliquis) glipizide 2.5 mg-metformin 500 mg 2.5 - 500 tab PO DAILY 09/22/21 09/22/21 09/22/21 tablet NPO Date Last Intake of Fluids: 09/22/21 Time Last Intake of Fluids: 13:00 Date Last Intake of Solids: 09/21/21 Time Last Intake of Solids: 21:00 Past Medical History Medical History Acute deep vein thrombosis (DVT) of left lower extremity Kidney stones Lumbar stenosis with neurogenic claudication on Eliquis for DVT, taken this morning; DMII Exercise / Class Metabolic Activity II 4-5 Yardwork/Stairs/Walk up hill Past Surgical History Surgical History No pertinent past surgical history Past Anesthesia History No Hx of Anesthesia Complications and No Family Hx of Anesthesia Complications History of PONV No Hx of PONV and No Hx of Motion Sickness Social History Smoking Status: Former smoker (30 y ago) Alcohol type: beer alcohol intake frequency: a few times a month Hx Substance Use: No Review of Systems ROS Unobtainable: All systems reviewed & are unremarkable except as noted in HPI & below Constitutional: as per Subjective / HPI Eyes: as per Subjective / HPI Ear, Nose, Mouth, Throat: as per Subjective / HPI Respiratory: as per Subjective / HPI Cardiovascular: as per Subjective / HPI Gastrointestinal: as per Subjective / HPI Genitourinary (Male): + as per Subjective / HPI Musculoskeletal: as per Subjective / HPI Integumentary: as per Subjective / HPI Neurologic: as per Subjective / HPI Psychiatric: as per Subjective / HPI Endocrine: as per Subjective / HPI Hematologic / Lymphatic: as per Subjective / HPI Allergy / Immunological: as per Subjective / HPI Physical Exam Vital Signs Last Vital Signs Temp 36.6 C 09/22/21 09:41 Pulse 91 H 09/22/21 13:52 Resp 18 09/22/21 13:52 BP 160/107 H 09/22/21 13:52 Pulse Ox 96 09/22/21 13:52 Constitutional WD/WN, vitals as above well developed, well nourished and + well hydrated; no acute distress ENMT external ear and nose normal, oropharynx normal Mouth: no loose teeth Thyromental Distance: > or= 3.5 Finger Breadths Mallampati Class: I Throat: uvula midline Neck normal visual inspection and trachea midline Respiratory normal respiratory effort, lungs clear to auscultation normal respiratory effort; no respiratory distress Auscultation: lungs clear to auscultation bilaterally Cardiovascular RRR, no murmur, no edema Rate/Rhythm: regular rate and regular rhythm Heart Sounds: no murmur Vessels: no JVD Musculoskeletal Head/Neck/Chest: normocephalic Skin no rashes, warm and dry Neurologic moves all extremities and awake; no focal motor deficits Cranial Nerves: tongue midline and symmetric palate elevation Psychiatric A+Ox3, euthymic affect Orientation: alert and oriented x 3 Apperance: appropriately dressed and appropriately groomed Eye Contact: good eye contact Speech: normal rate/rhythm/volume of speech Affect: euthymic affect Judgement: good judgement Genitourinary + CVA tenderness (Left) Testing Laboratory Results 09/22/21 10:10 09/22/21 10:10 Urine Color Yellow 09/22/21 12:00 Urine Appearance Clear (Clear) 09/22/21 12:00 Urine pH 5.0 (4.5-7.5) 09/22/21 12:00 Ur Specific [place] 1.018 (1.000-1.030) 09/22/21 12:00 Urine Protein Negative (Negative) 09/22/21 12:00 Urine Glucose (UA) Negative (Negative) 09/22/21 12:00 Urine Ketones Negative (Negative) 09/22/21 12:00 Urine Nitrite Negative (Negative) 09/22/21 12:00 Ur Leukocyte Esterase Negative (Negative) 09/22/21 12:00
--- NOTE | 2021-09-22 13:44 | Urology Consultation ---
Date of Consultation September 22, 2021 Assessment & Plan (1) Calculus of distal left ureter: (2) Left flank pain: (3) JAMES (acute kidney injury): 56-year-old male admitted with persistent/severe left flank pain and JAMES secondary to an obstructing 5 mm distal left ureteral stone. - Plan of care reviewed with Dr. Sarmiento, on-call urologist. - Afebrile, hypertensive and tachycardic. - Labs reviewed- No leukocytosis, Creatinine 1.60. - Urinalysis without evidence of infection. - Discussed acute stone management with cystoscopy, stent placement, possible stone treatment. Ureteral stents were discussed as well as postoperative issues and pain management. Also discussed possibility of needing second procedure to treat the stone. Risks and benefits discussed. Patient agreeable to proceeding. - Given his intractable left flank pain and JAMES in the context of an obstructing 5 mm distal left ureteral stone, will proceed to OR today for cystoscopy, left retrograde pyelogram, left ureteral stent placement, possible ureteroscopy, laser lithotripsy/stone treatment depending on findings. - Risks and benefits to be reviewed with patient by Dr. Sarmiento. OR notified. Will cover with IV Ancef preoperatively. COVID test negative. - Keep NPO and strain all urine. - Continue supportive care and pain management. - Patient agreeable to plan, all questions were answered. - Will continue to follow. Attending note: Independently assessed, examined, interviewed, and consented. Patient has obstructing stone. Has been in the ER multiple times this week due to severe pain. Patient also incidentally found to have severe leg pain and has a new acute DVT and was started on anticoagulation with Eliquis. Patient has not noticed any considerable blood in the urine. Patient had a similar stone episode approximately 3 years ago. At that time patient had relief of pain eventually but never did see stone pass. Patient CT scan showing obstructing stone of the distal left ureter. Has hydronephrosis. Discussed different options going forward. Discussed risk and benefits. Discussed options for management. Discussed options for conservative measure and maximum expulsion medical therapy and symptom controlled. Discussed ESWL. Discussed Ureteroscopy with extraction and/or laser lithotripsy. Risks and benefits were discussed. Stone free rates were also discussed as well as possibility of multiple procedures. Ureteral stents were discussed as well as post-operative issues and pain management. All questions were answered. Risks and benefits discussed at length for procedure. These include bleeding, infection, injury to surrounding tissues or organs, and risks associated with anesthesia. Patient states understanding and agrees to proceed. Will sign consent and proceed with Cystoscopy and possible left stent vs stone treatment. Patient is likely able to continue on the Eliquis as long as no significant bleeding occurs after the procedure. Can likely continue if patient is tolerating even with minor bleeding. We will be able to monitor moving forward. Plan to monitor overnight with plans for discharge when patient is stable and improving. History of Present Illness Reason for Consultation: Ureteral stone History of Present Illness 56-year-old male with a past medical history of DVT currently on Eliquis, hypertension, hyperlipidemia, BPH, and GERD who presents today with persistent and severe left flank pain. He was initially seen in the ED on 09/16 and diagnosed with a 3 mm distal left ureteral stone and discharged home with max expulsion therapy and trial of passage. He returned on 09/19 and 09/20 with pain and was also diagnosed with a lower extremity DVT and started on Eliquis. He returned to the ED today due to persistent/severe pain. On arrival to the ED, he was hypertensive and tachycardic. Afebrile. No leukocytosis. Creatinine 1.60 (baseline 1.3). Urinalysis was negative. A CT abdomen pelvis remarkable for mild persistent left-sided hydronephrosis secondary to an obstructing 5 mm calculus in the distal left ureter just proximal to the UVJ. He was admitted to medicine for further management. CT abdomen pelvis IMPRESSION: 1. Mild persistent left-sided hydroureteronephrosis secondary to an obstructing 5 mm calculus of the distal left ureter just proximal to the ureterovesicular junction. 2. Nonobstructing bilateral nephrolithiasis. 3. No bowel obstruction or bowel wall thickening. 4. Hepatic steatosis. 5. Additional findings as above. Patient examined at bedside in the ED. Awake, resting in bed on arrival. Daughter at bedside. Appears uncomfortable. Still with significant left flank pain and nausea. No vomiting. No fevers or chills. Voiding without issue. Denies hematuria and dysuria. Has been NPO other than some water. States he has passed stones spontaneously in the past. Had a dose of Eliquis this morning. No other pertinent history. Denies family history. Allergies Allergy/AdvReac Type Severity Reaction Status Date / Time No Known Allergies Allergy Verified 09/19/21 00:03 Home Medications Medication Instructions Recorded Confirmed Type doxazosin 4 mg tablet 4 mg PO DAILY 07/26/18 09/22/21 History pantoprazole 40 mg tablet,delayed 40 mg PO DAILY 07/26/18 09/22/21 History release simvastatin 20 mg tablet 20 mg PO HS 07/26/18 09/22/21 History ondansetron 4 mg disintegrating 4 mg PO Q6H PRN #15 tab 09/16/21 09/22/21 Rx tablet oxycodone 5 mg tablet 5 mg PO Q4H PRN #15 tab 09/16/21 09/22/21 Rx tamsulosin 0.4 mg capsule (Flomax) 0.4 mg PO DAILY #10 cap 09/16/21 09/22/21 Rx lisinopril 2.5 mg tablet 2.5 mg PO DAILY 09/19/21 09/22/21 History oxycodone 5 mg tablet 10 mg PO Q6H PRN #14 tab 09/19/21 09/22/21 Rx apixaban 5 mg (74 tabs) tablets in 5 mg PO BID #74 ea 09/20/21 09/22/21 Rx a dose pack (Eliquis) glipizide 2.5 mg-metformin 500 mg 2.5 - 500 tab PO DAILY 09/22/21 09/22/21 History tablet Patient History Medical History Acute deep vein thrombosis (DVT) of left lower extremity Kidney stones Lumbar stenosis with neurogenic claudication Surgical History No pertinent past surgical history Social History Smoking Status: Former smoker (30 y ago) Tobacco Type: Cigarettes Hx Substance Use: No Preferred Language: Bulgarian marital status: Current Living Situation: Spouse current occupational status: employed Feels Safe at Home: Yes Review of Systems Review of Systems: All systems reviewed & are unremarkable except as noted in HPI & below Physical Exam Constitutional: + obese; + uncomfortable Neck: normal visual inspection Respiratory: no respiratory distress and no labored breathing Gastrointestinal (Abdomen): Left-sided flank and abdominal tenderness with palpation Musculoskeletal: Head/Neck/Chest: normocephalic Skin: No visible rashes or lesions to exposed skin areas Neurologic: awake Psychiatric: Orientation: alert, oriented x 3 and cooperative Genitourinary: + CVA tenderness (Left) Results & Data ([facility]) Vital Signs (Past 12 Hours) Vital Signs Temp Pulse Pulse Resp BP BP Pulse Ox 09/22/21 13:00 92 H 18 163/105 H 94 09/22/21 11:40 91 H 18 165/107 H 96 09/22/21 09:48 179/104 H 09/22/21 09:41 36.6 C 98 H 16 179/104 H 94 PG Care Time/CCT Total # of Minutes Spent Total Time Spent with Patient: Total time spent is greater than 50% in coordination of care (as documented) at patient's floor/unit and/or counseling patient: Coding Level of Care Code 77863 Inpt Consult Level 4 Diagnoses Calculus of distal left ureter N20.1 Left flank pain R10.9 JAMES (acute kidney injury) N17.9
[2021-09-22] MEDS ORDERED: ceFAZolin 2000MG 2,000 MG/15 ML SYR IV ONE (13:45)
[2021-09-22] MEDS ORDERED: HYDROmorphone INJ 0.5 MG/0.5 ML SYR IV PRN ×2 (13:54)
[2021-09-22] MEDS ORDERED: MIDAZOLAM HCL 1 MG/ML 2ML VIAL ONE (14:14)
[2021-09-22] MEDS ORDERED: GLYCOPYRROLATE 0.2 MG/ML VIAL ONE (14:59)
--- NOTE | 2021-09-22 15:32 | Operative Report ---
PG Post Operative Report Pre & Post Diagnosis Left Obstructing Stone Same Operation Date: 09/22/21 14:15 <No data on this case meets the specified criteria> I identified the patient and participated in the time-out.: Yes Procedure Cystoscopy with left ureteroscopy, retrograde pyelogram, ureteral dilation, stone basket extraction, and stent Operation Date: 09/22/21 14:15 <No data on this case meets the specified criteria> Surgeon Reji Sarmiento, II, DO Disposal Worker None Estimated Blood Loss 1 Findings Consistent with Post-Op Diagnosis Left stricture with stone proximal. Dilated and Stone removed. Significant hooking of ureter at site of obstruction. Moderate dark bloody urine in renal pelvis. Specimens Stone Left Ureter Urine Left Pelvis Drains 6 Fr Multilength Anesthesia Type General Complications none Disposition Disposition: Recovery Room Indications Patient with bothersome stones and severe pain. Recent DVT requiring anticoagulation. Risks and benefits discussed at length. Description of Procedure Patient was consented and brought back to the operating room. Patient was placed under anesthesia in the supine position and moved to the dorsal lithotomy position. Patient was prepped and draped in the regular sterile fashion. A time out was completed. A 30degree Cystoscope was placed into the bladder and the entire bladder was examined. The UO's were identified. The UO was cannulized with a catheter and a retrograde pyelogram was completed. A wire was then placed. Significant hooking and kinking was noted in the ureter near the site of obstruction. Difficulty passing wire past the area. It did advance but required significant manipulation. The Rigid ureteroscope was taken into the ureter. The stone was identified pro ximal to a strictured area. The area was dilated and then the stone was grasped and removed and sent for analysis. The entire area was once again examined. No residual large fragments or areas of concern were noted. Dark urine with some debris was noted behind the stone. The scope was slowly removed with the wire left in place. Urine from the renal pelvis was aspirated and found to have a moderate amount of dark old appearing blood. This was sent for culture. Contrast was placed through the scope for a pyelogram to assist in stent placement. The entire ureter was examined as the scope was slowly removed. Site of dilation did not appear to be bleeding or having major issue. No obstructions or other areas of concern were noted. With the wire in place, a 6 Fr Double J stent was placed. It was confirmed with fluoroscopy. With the stent in place, the bladder was emptied. The scope was removed. The patient was cleaned, aroused from anesthesia, and transferred to the pacu in stable condition having tolerated the procedure well with no complications. I was present and participated in all aspects of the procedure. The patient will be monitored in the PACU until transferred. Plan to maintain stent for 1-2 weeks. Will plan to monitor on floor with medicine team to watch for hematuria with obstructing stone. Plan to continue eliquis if tolerating after procedure. May need repeat imaging depending on clinical course. I attest to the content of the Intraoperative Record and any orders documented therein. Any exceptions are noted below.
[2021-09-22] MEDS ORDERED: OPTIRAY 300 IV ONE (15:41)
--- NOTE | 2021-09-22 15:53 | Fluoroscopy Report ---
FL retrograde includes kub CLINICAL HISTORY: Left-sided stone extraction and stent placement. COMPARISON STUDY: Abdomen and pelvis CT 09/22/2021. FLUOROSCOPY TIME: 30 seconds. FINDINGS: 2 fluoroscopic spot images of the abdomen and pelvis demonstrate retrograde opacification o f the left renal collecting system with placement of a left ureteral stent. The ureteral stent appear s in good position. IMPRESSION: Fluoroscopic assistance provided for left ureteral stent placement which appears in good position. ACT 112: Negative or not required by law. Electronically signed by: Mike Jones M.D. 09/22/2021 3:51 PM
[2021-09-22] MEDS ORDERED: GLUCAGON FOR INJ 1 MG VIAL SQ PRN (17:32)
[2021-09-22] MEDS ORDERED: GLUCOSE 10 TAB/TUBE PO PRN (17:32)
[2021-09-22] MEDS ORDERED: DEXTROSE 50% 50 ML SYRINGE IV PRN (17:32)
[2021-09-22] MEDS ORDERED: GLUCOSE 40% GEL 15 GM TUBE PO PRN (17:32)
[2021-09-22] MEDS ORDERED: ONDANSETRON INJ 2 MG/ML 2 ML VIAL IV PRN (17:32)
[2021-09-22] MEDS ORDERED: POLYETHYLENE (MIRALAX) 17 GM PACK PO PRN (17:32)
[2021-09-22] MEDS ORDERED: CARBOHYDRATES FOR HYPOGLYCEMIA PO PRN (17:32)
[2021-09-22] MEDS: LACTATED RINGER'S 1,000 ML IV SCH (17:53)
[2021-09-22] MEDS: INSULIN ASPART PER UNIT SC SCH ×2 (18:11→21:07)
--- NOTE | 2021-09-22 18:32 | Anesthesiology Progress Note ---
Date of Service September 22, 2021 Anesthesia Post Procedure Vital Signs Vital Signs: Temp Pulse Pulse Pulse Resp BP BP 09/22/21 18:25 36.6 C 72 18 130/64 09/22/21 17:58 36.7 C 76 16 162/85 H 09/22/21 17:56 36.7 C 80 18 162/68 H 09/22/21 17:37 36.7 C 80 18 135/88 09/22/21 17:00 78 20 145/85 H 09/22/21 16:45 36.2 C L 88 20 152/88 H 09/22/21 16:30 80 20 156/90 H 09/22/21 16:15 79 20 145/92 H 09/22/21 16:00 89 20 133/90 09/22/21 15:50 95 H 18 120/91 09/22/21 15:40 83 16 129/71 09/22/21 15:33 36.6 C 99 H 14 158/102 H 09/22/21 14:03 36.7 C 89 20 136/90 09/22/21 13:52 91 H 18 160/107 H 09/22/21 13:00 92 H 18 163/105 H 09/22/21 11:40 91 H 18 165/107 H 09/22/21 09:48 179/104 H 09/22/21 09:41 36.6 C 98 H 16 179/104 H Pulse Ox 09/22/21 18:25 98 09/22/21 17:58 98 09/22/21 17:56 98 09/22/21 17:37 97 09/22/21 17:00 95 09/22/21 16:45 95 09/22/21 16:30 95 09/22/21 16:15 95 09/22/21 16:00 95 09/22/21 15:50 96 09/22/21 15:40 99 09/22/21 15:33 99 09/22/21 14:03 97 09/22/21 13:52 96 09/22/21 13:00 94 09/22/21 11:40 96 09/22/21 09:48 09/22/21 09:41 94 Transfer of Care Handoff Completed per policy Notes Mental Status: alert / awake / arousable Patient Amnestic to Procedure: Yes Nausea / Vomiting: adequately controlled Pain: adequately controlled Airway Patency, RR, SpO2: stable & adequate BP & HR: stable & adequate Hydration State: stable & adequate Anesthetic Complications: no major complications apparent
[2021-09-22] MEDS ORDERED: SIMVASTATIN 20 MG TAB PO SCH (21:00)
[2021-09-23] MEDS ORDERED: ACETAMINOPHEN 325 MG TAB PO PRN (00:03)
[2021-09-23] MEDS: LACTATED RINGER'S 1,000 ML IV SCH ×2 (01:07→08:04)
[2021-09-23] MEDS: INSULIN ASPART PER UNIT SC SCH ×2 (08:25→12:38)
[2021-09-23] MEDS ORDERED: TAMSULOSIN HCL 0.4 MG CAP PO SCH (09:00)
[2021-09-23] MEDS ORDERED: DOXAZosin MESYLATE 4 MG TAB PO SCH (09:00)
[2021-09-23] MEDS ORDERED: PANTOprazole 40 MG TAB PO SCH (09:00)
[2021-09-23 13:06] LABS: BUN Creatinine Ratio 13.1 (10-20); Calcium 9.7 mg/dl (8.5-10.1); Creatinine Clr Calc Pharmacy 119.1 ml/min; Est GFR (African American) 98.3 ml/min; Est GFR (Non-African American) 84.8 ml/min; Potassium 4.2 mmol/L (3.5-5.1)
--- NOTE | 2021-09-23 13:43 | Discharge Summary ---
Date of Service September 23, 2021 Admission HPI Per Admitting Provider Pavan Pereira is a 56-year-old male with a past medical history of DVT diagnosed 2 days ago/currently on Eliquis, hypertension hyperlipidemia, diabetes, BPH, and GERD who presents today with left flank pain. He began experiencing left back/flank pain with associated nausea 1.5 ago. He has presented to the ED several times, initially on 09/16 when a 3 mm distal ureteral stone was seen on CT. He was provided pain medication and Flomax to assist with passing stone, however his pain has only worsened since then. Dnies fever/chills, but has been diaphroetic the past day. No abdominal pain, vomiting, urinary retention, he maturia. In ED, he is hypertensive 165/107 HR 91 and he is in quite a bit of pain. Labs largely unremarkable, does have a creatinine 1.60 (baseline 1.3), UA without evidence of infection. CT A/P with showed mild persistent left-sided hydronephrosis secondary to obstructing 5 mm stone in the distal left ureter, just proximal to the UVJ. Discharge Data Allergies Allergy/AdvReac Type Severity Reaction Status Date / Time No Known Allergies Allergy Verified 09/19/21 00:03 Consultations 09/22/21 13:07 Consult Urology Stat 09/22/21 13:15 ED Decision to Admit Stat Procedures Performed Operation Date: 09/22/21 14:15 Actual Procedures p left ureteroscopy, retrograde pyelogram, ureteral dilation, stone basket extraction, (Left) - DO denia Manrique Cystoscopy with(Not Applicable) - DO denia Manrique and stent(Left) - Reji Sarmiento DO Ordered Studies 09/22/21 [place] retrograde includes kub Routine 09/22/21 09:59 CT abd pelvis wo con Stat Hospital Course (1) Kidney stone: - 5 mm stone in distal left ureter just proximal to the UVJ. Mild persistent left-sided hydroureteronephrosis secondary to obstruction. - Urology brought patient from the ED to OR today for cystoscopy, left retrograde pyelogram, left ureteral stent placement. - Obs overnight for bleeding complications. Restart Eliquis tonight or tomorrow AM per urology recommendations. - Supportive care w/ pain medication, anti emetics, IVF. ABX per urology. (2) JAMES (acute kidney injury): - 2/2 obstruction, Cr 1.60, baseline appears to be 1.3. - IVF, monitor renal function AM labs. - Avoid nephrotoxins, renally dose as able. (3) DVT (deep venous thrombosis): - Diagnosed on 09/20, on Eliquis. Did take AM dose. - Restart Eliquis tonight or tomorrow. (4) Hyperlipidemia: - Continue statin. (5) DM2 (diabetes mellitus, type 2): - Hold glipizide/metformin. - Accuchecks ACHS with SSI. (6) BPH (benign prostatic hyperplasia): - Continue flomax, doxazosin. (7) Hypertension: - Hold lisinopril until JMAES resolves. (8) GERD (gastroesophageal reflux disease): - Continue pantoprazole 40 mg daily. - Admit to med/surg. - SCDs for DVT ppx. - Full Code. Discharge Plan Discharge Items Patient Disposition: Home - Self-Care Reason For Visit: OBSTRUCTING LEFT URETERAL STONE WITH HYDRO Discharge Diagnosis: Obstructing left ureteral stone Activity: Resume your previous activity Non-emergency contact: Urologist Call non-emergency contact if: you have any medication questions, your symptoms worsen and your temperature is above 101 Follow-up/Referrals: Reji Sarmiento DO [Physician] - (2 week follow up for stent removal) Karly Oliveros DO [Primary Care Provider] - Diet: Carb Consistent or DM2 Addtl Attending Provider Instructions: You were admitted overnight at [facility] from September 22 - 2021 due to an obstructing left ureteral stone. This was treated by urology (Dr Sarmiento) with ureteral dilation, stone basket extraction, and ureteral stent insertion on September 22. Your renal function returned to normal overnight with IV fluids. Please follow up with urology with appointment to be arranged in approximately 2 weeks. Your Eliquis was held for the procedure but this can be restarted at your normal dose starting tonight. It is normal to have some blood in your urine after this procedure especially on Eliquis however if you are having problems emptying your bladder or passing large clots please return to the emergency room or call your urologist. Pending Studies at Discharge: Yes (Stone analysis) Stand-Alone Forms: My [facility] [employer], Smoking Cessation Medications and DC Order Prescriptions: Continued pantoprazole 40 mg tablet,delayed release (DR/EC) 40 mg PO DAILY RF: 0 simvastatin 20 mg tablet 20 mg PO HS RF: 0 doxazosin 4 mg tablet 4 mg PO DAILY RF: 0 ondansetron 4 mg tablet,disintegrating 4 mg PO Q6H PRN (Reason: nausea and vomiting) Qty: 15 RF: 0 oxycodone 5 mg tablet 5 mg PO Q4H PRN (Reason: pain) Qty: 15 RF: 0 tamsulosin [Flomax] 0.4 mg capsule 0.4 mg PO DAILY Qty: 10 RF: 0 lisinopril 2.5 mg tablet 2.5 mg PO DAILY RF: 0 oxycodone 5 mg tablet 10 mg PO Q6H PRN (Reason: pain) Qty: 14 RF: 0 Eliquis 5 mg (74 tabs) tablets,dose pack 5 mg PO BID Qty: 74 RF: 0 glipizide-metformin 2.5-500 mg tablet 2.5 - 500 tab PO DAILY RF: 0 Discharge Orders: Discharge Order (Routine); Ordered 09/23/21 Ordered By: Speedy Pedersen Admission Data Admit Date/Time: 09/22/21 13:48 Attending Provider: Speedy Pedersen Admit Provider: Speedy Pedersen Primary Care Provider: Karly Oliveros Other Providers: Reji Sarmiento ; Speedy Pedersen Other Interventions: Discharge Summary Assessment (RN) Last Done: 09/23/21 12:48 Coding Diagnoses Kidney stone N20.0 JAMES (acute kidney injury) N17.9 DVT (deep venous thrombosis) I82.409 Hyperlipidemia E78.5 DM2 (diabetes mellitus, type 2) E11.9 BPH (benign prostatic hyperplasia) N40.0 Hypertension I10 GERD (gastroesophageal reflux disease) K21.9
== END 2021-09-23 15:38 | disposition home or self-care (01) | DRG 660 ==
LOC: ED 09:39 → PACUINP 13:48 → 3W 13:52

== ENCOUNTER 2023-11-01 20:09 | Inpatient (IN) ==
[2023-11-01] MEDS: diazePAM 5 MG/ML 10ML VIAL IV STA (21:40)
[2023-11-01] MEDS: KETOROLAC TROMETHAMINE 15 MG/ML VIAL IV ONE (21:40)
[2023-11-01] MEDS: ACETAMINOPHEN 1,000 MG/100 ML VIAL IV STA (21:40)
[2023-11-01 21:49] LABS: Albumin Level 4.3 gm/dl (3.4-5.0); BUN Creatinine Ratio 14.6 (10-20); Bilirubin Direct 0.1 mg/dl (0-0.2); Bilirubin,Total 0.5 mg/dl (0.2-1.0); Creatinine Clr Calc Pharmacy 121.1 ml/min; Est GFR (African American) 100.6 ml/min; Est GFR (Non-African American) 86.8 ml/min; Total Protein 6.7 gm/dl (6.0-8.3)
[2023-11-01 21:58] LABS: Eosinophils # (auto) 0.42 K/uL (0.00-0.50); Eosinophils % (auto) 4.1 %; Hematocrit (blood only) 43.2 % (42.0-52.0); Hemoglobin 15.1 g/dl (14.0-18.0); Immature Granulocytes # (auto) 0.02 K/uL (0.01-0.20); Immature Granulocytes % (auto) 0.2 %; Lymphocytes # (auto) 1.83 K/uL (1.20-3.40); Lymphocytes % (auto) 17.8 %; Mean Corpuscular Hemoglobin 29.9 pg (25.0-34.0); Mean Corpuscular Volume 85.5 fL (80.0-100.0); Mean Platelet Volume 10.4 fL (9.4-12.4); Monocytes # (auto) 0.74 K/uL (0.11-0.59); Monocytes % (auto) 7.2 %; Neutrophils # (auto) 7.16 K/uL (1.40-6.50); Neutrophils % (auto) 69.7 %; Platelet Count 291 K/uL (130-400); RDW Coefficient of Variation 13.2 % (11.5-14.5); RDW Standard Deviation 40.5 fL (36.4-46.3); Red Blood Count 5.05 M/uL (4.70-6.10); White Blood Count 10.27 K/ul (4.8-10.8)
[2023-11-01] MEDS: OPTIRAY 320 100ml IV ONE (22:43)
--- NOTE | 2023-11-01 22:47 | Emergency Department Note ---
Impression & Plan Lumbar stenosis with neurogenic claudication, Back pain ED Provider Note NAME: SETH CASTRO AGE: 58 SEX: M : 1965 ARRIVES VIA: Ambulance INFORMANT: Patient, ED PROVIDER(S): Nabila Peters MD CHIEF COMPLAINT: Back pain HPI: This is a 58-year male with history of chronic back pain presenting for new back pain. Patient notes that he has a central lower lumbar pain. He notes it is similar but worse than his previous back pain. He had a surgery by Dr. Pradhan in 2016. Over the past 1 week he has had worsening pain that feels like spasms in his back. He is also concerned by kidney stones as well. He reports no numbness in his groin. No urinary or bowel incontinence. No motor weakness. There is no pain radiates into his left leg. ROS: See above HPI for pertinent positives & negatives. A total of 10 systems reviewed and were otherwise negative. PAST MEDICAL HISTORY: See Below PAST SURGICAL HISTORY: See Below FAMILY HISTORY: See Below SOCIAL HISTORY: See Below HOME MEDICATIONS: See Below ALLERGIES: See Below VITALS: See Below PHYSICAL EXAMINATION: General: Moderate distress due to pain Head: Normocephalic and atraumatic Eyes: Normal inspection, extraocular muscles intact Ear, nose, throat: Normal external exam Neck: Normal range of motion Respiratory: lungs clear to auscultation bilaterally Cardiovascular: Regular rate/rhythm, no murmur GI: soft, nontender, no guarding or rebound Extremities: nontender, moves all extremities Neuro: The patient awake and alert, appropriately conversive, no focal deficits, symmetric faces Skin: Warm, dry, and intact MEDICAL DECISION MAKING: This is a 58-year-old male presenting for back pain/muscle spasm. Patient is concerned muscle spasm versus renal colic. Will do CT of the abdomen/pelvis as well as lumbar spine. Consider radiculopathy as the likely source of his pain. Will give Tylenol, Toradol and Valium. -Blood work is reviewed showing no leukocytosis or anemia. Electrolytes are within normal limits. No creatinine elevation. No transaminitis. -CT imaging does reveal no hardware complication, no spinal canal stenosis -CT abdomen/pelvis reveals no significant abnormality explain his current symptoms -Despite numerous rounds of hydromorphone, Toradol and Valium, patient has not had any relief in symptoms. He is still writhing around in the stretcher extremely uncomfortable -Unfortunately he will not able to be sent home due to his pain, -Will need for further pain control from lower back pain. -Discussed with Dr. Ross for admission Differential diagnosis: Muscle spasm, lumbar fracture, central canal stenosis, cauda equina, renal colic, SBO, diverticulitis ER treatment provided: See below Independent History obtained from: Diagnostics interpreted by me: ECG: None Cardiac Monitoring: An order was placed for continuous cardiac monitoring. The monitor shows a rate of 86 with sinus rhythm. Laboratory studies: As stated above and show below. Imaging studies: See below. Past Med/Surg History Problem List (Updated 11/03/23 @ 12:42 by Nabila Peters MD) Encounter for pre-operative examination Back pain (Acute) Hypertension JAMES (acute kidney injury) Lumbar stenosis with neurogenic claudication (Acute) Medical History (Updated 11/03/23 @ 12:42 by Nabila Peters MD) Obesity Spinal stenosis of lumbar region with radiculopathy GERD (gastroesophageal reflux disease) BPH (benign prostatic hyperplasia) DM2 (diabetes mellitus, type 2) Hyperlipidemia DVT (deep venous thrombosis) Kidney stones Surgical History History of back surgery Family History Other Family history non-contributory Social History Smoking Status: Former smoker Tobacco Type: Cigarettes Hx Alcohol Use: Yes Alcohol type: wine Hx Substance Use: No Preferred Language: [place] Citizen Health Worker Required: No Beliefs That Will Affect Care: None marital status: Current Living Situation: Spouse current occupational status: employed Other Information That Helps Us Care for You: No Feels Safe at Home: Yes Safety Concerns: Feels Safe At This Time Assistive Devices: Glasses Allergies Allergies Allergy/AdvReac Type Severity Reaction Status Date / Time No Known Allergies Allergy Verified 09/19/21 00:03 Home Meds Home Medications Medication Instructions Recorded Confirmed doxazosin 4 mg tablet 4 mg PO DAILY 07/26/18 11/02/23 pantoprazole 40 mg tablet,delayed 40 mg PO DAILY 07/26/18 11/02/23 release simvastatin 20 mg tablet 20 mg PO HS 07/26/18 11/02/23 lisinopril 2.5 mg tablet 2.5 mg PO DAILY 09/19/21 09/22/21 glipizide 2.5 mg-metformin 500 mg 2.5 - 500 tab PO DAILY Diabetes 09/22/21 11/02/23 tablet Previous Rx's Medication Instructions Recorded ondansetron 4 mg disintegrating 4 mg PO Q6H PRN nausea and 09/16/21 tablet vomiting #15 tabs oxycodone 5 mg tablet 5 mg PO Q4H PRN pain #15 tabs 09/16/21 oxycodone 5 mg tablet 10 mg (2 x 5 mg) PO Q6H PRN pain 09/19/21 #14 tabs apixaban 5 mg (74 tabs) tablets in 5 mg PO BID #74 ea 09/20/21 a dose pack ([employer]) oxybutynin chloride 5 mg tablet 5 mg PO BID PRN bladder spasms #20 09/25/21 tabs tamsulosin 0.4 mg capsule (Flomax) 0.4 mg PO DAILY #10 caps 09/25/21 Results & Data (ED) Vital Signs Vital Signs - 24 hr 11/01/23 20:14 11/01/23 20:17 11/01/23 21:44 Temperature 37.0 C Temperature Source Oral Pulse Rate 97 H 96 H Pulse Rate [Apical] 75 Respiratory Rate 18 14 Blood Pressure 151/105 H Blood Pressure [Left Arm] 145/92 H Blood Pressure Mean 120 Blood Pressure Mean [Left Arm] 109 Pulse Oximetry 94 97 Oxygen Delivery Method Room Air Nasal Cannula Oxygen Flow Rate 2 Sepsis Recent Fever Within 48 Hours No Sepsis New/Unexplained Change in Mental Status No Sepsis Action Taken by Nursing No Action Required Laboratory Data 11/01/23 20:25 11/02/23 05:59 Lab Results 11/01/23 Range/Units 20:25 WBC 10.27 (4.8-10.8) K/ul RBC 5.05 (4.70-6.10) M/uL Hgb 15.1 (14.0-18.0) g/dl Hct 43.2 (42.0-52.0) % MCV 85.5 (80.0-100.0) fL MCH 29.9 (25.0-34.0) pg MCHC 35.0 (32.0-36.0) g/dL RDW Std Deviation 40.5 (36.4-46.3) fL RDW Coeff of Kirk 13.2 (11.5-14.5) % Plt Count 291 (130-400) K/uL MPV 10.4 (9.4-12.4) fL Immature Gran % (Auto) 0.2 % Neut % (Auto) 69.7 % Lymph % (Auto) 17.8 % Noble % (Auto) 7.2 % Eos % (Auto) 4.1 % Baso % (Auto) 1.0 % Neut # (Auto) 7.16 H (1.40-6.50) K/uL Lymph # (Auto) 1.83 (1.20-3.40) K/uL Noble # (Auto) 0.74 H (0.11-0.59) K/uL Eos # (Auto) 0.42 (0.00-0.50) K/uL Baso # (Auto) 0.10 (0.00-0.20) K/uL Immature Gran # (Auto) 0.02 (0.01-0.20) K/uL Sodium 138 (136-145) mmol/L Potassium 4.0 (3.5-5.1) mmol/L Chloride 104 (98-107) mmol/L Carbon Dioxide 27 (21-32) mmol/L Anion Gap 7 (3-11) BUN 14 (6-23) mg/dl Creatinine 0.96 (0.6-1.4) mg/dl Est Cr Clr Drug Dosing 121.1 ml/min Est GFR ( Amer) 100.6 ml/min Est GFR (Non-Af Amer) 86.8 ml/min BUN/Creatinine Ratio 14.6 (10-20) Glucose 120 H (70-99(Fasting)) mg/dl Calcium 9.0 (8.6-10.3) mg/dl Total Bilirubin 0.5 (0.2-1.0) mg/dl Direct Bilirubin 0.1 (0-0.2) mg/dl AST 23 (13-39) U/L ALT 19 (7-52) U/L Alkaline Phosphatase 60 (34-104) U/L Total Protein 6.7 (6.0-8.3) gm/dl Albumin 4.3 (3.4-5.0) gm/dl Lipase 42 (11-82) U/L Administered Medications Acetaminophen (Acetaminophen 500 Mg Tab) 1,000 mg PO TID [facility] Stop: 12/02/23 08:59 Last Admin: 11/03/23 09:47 Dose: 1,000 mg Documented By: Admin: 11/02/23 20:43 Dose: 1,000 mg Documented By: Admin: 11/02/23 13:20 Dose: 1,000 mg Documented By: Admin: 11/02/23 10:33 Dose: 1,000 mg Documented By: MAY Cyclobenzaprine HCl (Cyclobenzaprine Hcl 10 Mg Tab) 10 mg PO TID PRN PRN Reason: spasm Stop: 12/02/23 00:44 Last Admin: 11/02/23 10:31 Dose: 10 mg Documented By: MAY Doxazosin Mesylate (Doxazosin Mesylate 4 Mg Tab) 4 mg PO DAILY [facility] Stop: 12/02/23 08:59 Last Admin: 11/03/23 09:48 Dose: 4 mg Documented By: Admin: 11/02/23 10:32 Dose: 4 mg Documented By: MAY Enoxaparin Sodium (Enoxaparin Inj 40 Mg/0.4 Ml Syr) 40 mg SQ QAM [facility] Stop: 12/02/23 08:59 Last Admin: 11/03/23 09:48 Dose: Not Given Documented By: Admin: 11/02/23 10:45 Dose: Not Given Documented By: MAY Hydromorphone HCl (Hydromorphone Inj 1 Mg/Ml Syringe) 1 mg IV Q3H PRN PRN Reason: Pain (6,7,8,9,10) Stop: 11/16/23 10:40 Last Admin: 11/03/23 09:46 Dose: 1 mg Documented By: Admin: 11/03/23 04:39 Dose: 1 mg Documented By: Admin: 11/02/23 23:58 Dose: 1 mg Documented By: Admin: 11/02/23 15:04 Dose: 1 mg Documented By: MAY Methylprednisolone 40 mg/ (Syringe) 0.64 mls @ 1.5 mls/min IV Q24H [facility] Stop: 09/16/24 20:59 Last Admin: 11/02/23 20:43 Dose: 1.5 mls/min Documented By: GARFIELD Insulin Aspart (Insulin Aspart Per Unit Charge) 0 units SC ACHS RYLEE Stop: 12/02/23 07:29 Last Admin: 11/03/23 12:23 Dose: 2 units Documented By: MAY Co-signed By: DANNY Admin: 11/03/23 09:59 Dose: 5 units Documented By: MAY Co-signed By: DANNY Admin: 11/02/23 21:25 Dose: Not Given Documented By: GARFIELD Co-signed By: LENNIE Admin: 11/02/23 18:02 Dose: 2 units Documented By: MAY Co-signed By: DANNY Admin: 11/02/23 12:24 Dose: 5 units Documented By: MAY Co-signed By: MOLLY Admin: 11/02/23 10:44 Dose: 5 units Documented By: MAY Co-signed By: DANNY Insulin Glargine (Lantus Per Unit Charge) 12 units SQ BID RYLEE Stop: 12/02/23 08:59 Last Admin: 11/03/23 09:59 Dose: 12 units Documented By: MAY Co-signed By: DANNY Admin: 11/02/23 21:25 Dose: Not Given Documented By: Admin: 11/02/23 10:44 Dose: 12 units Documented By: MAY Co-signed By: DANNY Ketorolac Tromethamine (Ketorolac Tromethamine 15 Mg/Ml Vial) 15 mg IV Q6H PRN PRN Reason: Pain Stop: 11/07/23 00:44 Last Admin: 11/02/23 20:43 Dose: 15 mg Documented By: Admin: 11/02/23 10:30 Dose: 15 mg Documented By: MAY Oxycodone HCl (Oxycodone Hcl Ir 5 Mg Tab (Immediate Release)) 10 mg PO Q6H PRN PRN Reason: Moderate Pain 4-6/10 Stop: 11/16/23 07:37 Last Admin: 11/03/23 10:43 Dose: 10 mg Documented By: Admin: 11/02/23 18:03 Dose: 10 mg Documented By: MAY Pantoprazole Sodium (Pantoprazole 40 Mg Tab) 40 mg PO DAILY [facility] Stop: 12/02/23 08:59 Last Admin: 11/03/23 09:48 Dose: 40 mg Documented By: Admin: 11/02/23 10:34 Dose: 40 mg Documented By: MAY Simvastatin (Simvastatin 20 Mg Tab) 20 mg PO HS RYLEE Stop: 12/02/23 20:59 Last Admin: 11/02/23 20:43 Dose: 20 mg Documented By: GARFIELD Discontinued Medications Cyclobenzaprine HCl (Cyclobenzaprine Hcl 10 Mg Tab) 10 mg PO NOW STA Stop: 11/01/23 22:52 Last Admin: 11/01/23 23:03 Dose: 10 mg Documented By: PATRICIA Diazepam (Diazepam 5 Mg/Ml 10ml Vial) 5 mg IV NOW STA Stop: 11/01/23 21:28 Last Admin: 11/01/23 21:40 Dose: 5 mg Documented By: PATRICIA Hydromorphone HCl (Hydromorphone Inj 0.5 Mg/0.5 Ml Syr) 0.5 mg IV NOW STA Stop: 11/01/23 23:38 Last Admin: 11/01/23 23:40 Dose: 0.5 mg Documented By: PERLA Hydromorphone HCl (Hydromorphone Inj 0.5 Mg/0.5 Ml Syr) 0.5 mg IV Q3H PRN PRN Reason: Pain (6,7,8,9,10) Stop: 11/16/23 00:44 Last Admin: 11/02/23 09:20 Dose: 0.5 mg Documented By: Admin: 11/02/23 06:25 Dose: 0.5 mg Documented By: CRISTELA Hydromorphone HCl (Hydromorphone Inj 0.5 Mg/0.5 Ml Syr) 0.25 mg IV NOW STA Stop: 11/02/23 01:08 Last Admin: 11/02/23 01:40 Dose: 0.25 mg Documented By: CRISTELA Acetaminophen (Ofirmev) 1,000 mg in 100 mls @ 400 mls/hr IV NOW STA Stop: 11/01/23 21:41 Last Infusion: 11/01/23 22:54 Dose: Infused Documented By: Admin: 11/01/23 21:40 Dose: 400 mls/hr Documented By: PATRICIA Methylprednisolone 40 mg/ (Syringe) 0.64 mls @ 1.5 mls/min IV NOW ONE Stop: 11/02/23 01:01 Last Admin: 11/02/23 01:40 Dose: 1.5 mls/min Documented By: CRISTELA Ioversol (Optiray 320 100ml) 93 ml IV ONCE ONE Stop: 11/01/23 22:44 Last Admin: 11/01/23 22:43 Dose: 93 ml Documented By: JOSE C Ketorolac Tromethamine (Ketorolac Tromethamine 15 Mg/Ml Vial) 15 mg IV NOW ONE Stop: 11/01/23 21:28 Last Admin: 11/01/23 21:40 Dose: 15 mg Documented By: PATRICIA Lidocaine (Lidocaine 5% 1 Patch) 1 patch TD NOW STA Stop: 11/02/23 00:46 Last Admin: 11/02/23 01:42 Dose: Not Given Documented By: CRISTELA Miscellaneous (Remove Lidoderm Patch) 1 each N/A 1300 ONE Stop: 11/02/23 13:01 Last Admin: 11/02/23 13:21 Dose: Not Given Documented By: ADB Discharge Plan Visit Data Chief Complaint: Back Injury/Pain ED Provider: Nabila Peters Discharge Problem: Lumbar stenosis with neurogenic claudication, Back pain Patient Disposition: Admitted As Inpatient Discharge Instructions Interventions: ED Discharge Assessment Last Done: 11/02/23 00:49
[2023-11-01] MEDS: CYCLOBENZAPRINE HCL 10 MG TAB PO STA (23:03)
[2023-11-01] MEDS: HYDROmorphone INJ 0.5 MG/0.5 ML SYR IV STA (23:40)
--- NOTE | 2023-11-01 23:50 | History & Physical Report ---
Date of Service November 01, 2023 Assessment & Plan (1) Back pain: Plan: 58yo male with history of lumbar spinal stenosis s/p [place] [address] Pradhan presenting with 1.5 weeks of persistent back pain with acute worsening today. No fever or chills, no falls or trauma. Patient reports severe midline lumbar back pain with radiation into the left lateral and anterior thigh. Also with frequent severe muscle spasms. Strength, sensation and reflexes are intact. -Observation to medical -Multi-modal pain control with Tylenol 1gm PO TID -Toradol 15mg IV q 6 hours PRN -Solumedrol 40mg IV daily -Flexeril 10mg po TID PRN -Lidoderm patch -Heat -Dilaudid 0.25 - 0.5mg IV q 3 hours PRN -Bowel regimen with Colace and Miralax PRN -Supplemental O2 as needed with continuous pulse oximetry monitoring (2) DM2 (diabetes mellitus, type 2): Plan: Patient is on Glipizide-Metformin daily as well as Mounjaro injections weekly. He reports adequate blood sugar control. -Hold home medications -Lantus 12 u BID -ISS - CF=25, CR=12 - Goal blood sugar 110 - 140 (3) Hyperlipidemia: Plan: Chronic. Stable -Continue Simvastatin 20mg po qHS (4) GERD (gastroesophageal reflux disease): Plan: Chronic. Stable -Continue Protonix 40mg PO BID Plan F/E/N - Saline lock. Electrolytes WNL. CC diet as tolerated PPx - Lovenox Code - Full Dispo - Observation to medical History of Present Illness Chief Complaint: back pain Primary Care Provider: DO Pavan Whelancock is a 58yo male with history of DM, HTN, GERD prior back surgery [place] [address] Pradhan presenting with severe, acute back pain. Patient reports 1.5 weeks of intermittent back pain. Pain is located in the lower lumbar region, midline with radiation into the left lateral and anterior leg. He has frequent associated muscle spasms as well. Patient was not feeling well today. He came home from work and laid down. When he woke up he had very severe back pain with radiation to the left thigh, frequent severe muscle spasms. Pain is made worse with movement and certain positions. Patient otherwise denies fever, chills, no falls or trauma, no lifting/bending/twisting that precipitated the pain. No complaints with bowel or bladder although he has been having difficulty having bowel movements due to pain in the back. Patient does have an appointment with Dr. Pradhan scheduled for 11/07/23 In the ER patient is in severe pain. Otherwise, HD stable. He did become somewhat hypoxic with saturations of 83-84% on room air with sleeping. Patient reports no relief with the therapies administered below. Ongoing severe pain. ER Course: Toradol 15mg IV Tylenol 1gm IV Diazepam 5mg IV Cyclobenzaprine 10mg PO Dilaudid 0.5mg IV Allergies Allergy/AdvReac Type Severity Reaction Status Date / Time No Known Allergies Allergy Verified 09/19/21 00:03 Home Medications Medication Instructions Recorded Confirmed Type doxazosin 4 mg tablet 4 mg PO DAILY 07/26/18 11/02/23 History pantoprazole 40 mg tablet,delayed 40 mg PO DAILY 07/26/18 11/02/23 History release simvastatin 20 mg tablet 20 mg PO HS 07/26/18 11/02/23 History ondansetron 4 mg disintegrating 4 mg PO Q6H PRN nausea and 09/16/21 09/22/21 Rx tablet vomiting #15 tabs oxycodone 5 mg tablet 5 mg PO Q4H PRN pain #15 tabs 09/16/21 09/22/21 Rx lisinopril 2.5 mg tablet 2.5 mg PO DAILY 09/19/21 09/22/21 History oxycodone 5 mg tablet 10 mg (2 x 5 mg) PO Q6H PRN pain 09/19/21 09/22/21 Rx #14 tabs apixaban 5 mg (74 tabs) tablets in 5 mg PO BID #74 ea 09/20/21 09/22/21 Rx a dose pack (Eliquis) glipizide 2.5 mg-metformin 500 mg 2.5 - 500 tab PO DAILY Diabetes 09/22/21 11/02/23 History tablet oxybutynin chloride 5 mg tablet 5 mg PO BID PRN bladder spasms #20 09/25/21 Rx tabs tamsulosin 0.4 mg capsule (Flomax) 0.4 mg PO DAILY #10 caps 09/25/21 Rx Past Med/Surg History Problem List (Updated 11/02/23 @ 00:59 by Hermelinda Ross DO) Back pain Hypertension GERD (gastroesophageal reflux disease) BPH (benign prostatic hyperplasia) DM2 (diabetes mellitus, type 2) Hyperlipidemia DVT (deep venous thrombosis) JAMES (acute kidney injury) Lumbar stenosis with neurogenic claudication Medical History (Updated 11/02/23 @ 00:59 by Hermelinda Ross DO) Acute deep vein thrombosis (DVT) of left lower extremity Kidney stones Surgical History (Updated 11/02/23 @ 00:56 by Hermelinda Ross DO) History of back surgery Family History Other Family history non-contributory Social History Smoking Status: Former smoker Tobacco Type: Cigarettes Hx Substance Use: No Preferred Language: Taiwanese 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 Beliefs That Will Affect Care: None marital status: Current Living Situation: Spouse current occupational status: employed Feels Safe at Home: Yes Assistive Devices: None Review of Systems Review of Systems: All systems reviewed & are unremarkable except as noted in HPI & below Physical Exam Physical Exam: General: patient in moderate distress secondary to lumbar back pain and spasm, AA&O x 4 Skin: warm, dry, intact, no rashes or lesions HEENT: NC/AT, PERRL, EOMI, anicteric sclera, conjunctiva without injection, external ear normal to inspection and nontender, nares patent, moist mucus membranes, dentition intact, no oropharyngeal lesions, neck supple, trachea midline, no LAD, no thyromegaly, no JVD Heart: +S1/S2, regular, no m/r/g Lungs: equal air entry bilaterally, no rales/rhonchi/wheezes Abd: +BS, soft, NT/ND, no masses/organomegaly/ascites Ext: warm, 2+ pulses in UE/LE bilaterally, no clubbing/cyanosis or edema Neuro: nonfocal, patient AA&O x 4, speech intact, no facial droop, moving all extremities on command with equal strength 5/5 Pain with palpation of lumbar back, midline, muscle spasm present left lumbar paraspinal musculature Results & Data Results & Data Vital Signs (Past 12 Hours) Vital Signs Temp Pulse Pulse Resp BP BP Pulse Ox 11/01/23 23:00 89 18 132/84 96 11/01/23 21:44 75 14 145/92 H 97 11/01/23 20:17 37.0 C 96 H 18 151/105 H 94 11/01/23 20:14 97 H O2 Del Method O2 Flow Rate 11/01/23 23:00 Room Air 11/01/23 21:44 Nasal Cannula 2 11/01/23 20:17 Room Air 11/01/23 20:14 Laboratory Results Laboratory Results WBC 10.27 K/ul (4.8-10.8) 11/01/23 20:25 RBC 5.05 M/uL (4.70-6.10) 11/01/23 20:25 Hgb 15.1 g/dl (14.0-18.0) 11/01/23 20: Hct 43.2 % (42.0-52.0) 11/01/23 20:25 MCV 85.5 fL (80.0-100.0) 11/01/23 20:25 MCH 29.9 pg (25.0-34.0) 11/01/23 20: MCHC 35.0 g/dL (32.0-36.0) 11/01/23 20:25 RDW Std Deviation 40.5 fL (36.4-46.3) 11/01/23 20:25 RDW Coeff of Kirk 13.2 % (11.5-14.5) 11/01/23 20:25 Plt Count 291 K/uL (130-400) 11/01/23 20:25 MPV 10.4 fL (9.4-12.4) 11/01/23 20:25 Immature Gran % (Auto) 0.2 % 11/01/23 20:25 Neut % (Auto) 69.7 % 11/01/23 20:25 Lymph % (Auto) 17.8 % 11/01/23 20:25 Runnels % (Auto) 7.2 % 11/01/23 20:25 Eos % (Auto) 4.1 % 11/01/23 20:25 Baso % (Auto) 1.0 % 11/01/23 20:25 Neut # (Auto) 7.16 K/uL (1.40-6.50) H 11/01/23 20:25 Lymph # (Auto) 1.83 K/uL (1.20-3.40) 11/01/23 20:25 Runnels # (Auto) 0.74 K/uL (0.11-0.59) H 11/01/23 20:25 Eos # (Auto) 0.42 K/uL (0.00-0.50) 11/01/23 20:25 Baso # (Auto) 0.10 K/uL (0.00-0.20) 11/01/23 20:25 Immature Gran # (Auto) 0.02 K/uL (0.01-0.20) 11/01/23 20:25 Sodium 138 mmol/L (136-145) 11/01/23 20:25 Potassium 4.0 mmol/L (3.5-5.1) 11/01/23 20:25 Chloride 104 mmol/L (98-107) 11/01/23 20:25 Carbon Dioxide 27 mmol/L (21-32) 11/01/23 20:25 Anion Gap 7 (3-11) 11/01/23 20:25 BUN 14 mg/dl (6-23) 11/01/23 20:25 Creatinine 0.96 mg/dl (0.6-1.4) 11/01/23 20:25 Est Cr Clr Drug Dosing 121.1 ml/min 11/01/23 20:25 Est GFR ( Amer) 100.6 ml/min 11/01/23 20:25 Est GFR (Non-Af Amer) 86.8 ml/min 11/01/23 20:25 BUN/Creatinine Ratio 14.6 (10-20) 11/01/23 20:25 Glucose 120 mg/dl (70-99(Fasting)) H 11/01/23 20:25 Calcium 9.0 mg/dl (8.6-10.3) 11/01/23 20:25 Total Bilirubin 0.5 mg/dl (0.2-1.0) 11/01/23 20:25 Direct Bilirubin 0.1 mg/dl (0-0.2) 11/01/23 20:25 AST 23 U/L (13-39) 11/01/23 20:25 ALT 19 U/L (7-52) 11/01/23 20:25 Alkaline Phosphatase 60 U/L (34-104) 11/01/23 20:25 Total Protein 6.7 gm/dl (6.0-8.3) 11/01/23 20:25 Albumin 4.3 gm/dl (3.4-5.0) 11/01/23 20:25 Lipase 42 U/L (11-82) 11/01/23 20:[address] Lumbar spine and CT Abdomen and Pelvis obtained - formal readings are pending at this time. Code Status & VTE Plan VTE Prophylaxis Plan VTE Prophylaxis will be ordered: Yes PG Care Time/CCT Total # of Minutes Spent Total Time Spent with Patient: Total time spent is greater than 50% in coordination of care (as documented) at patient's floor/unit and/or counseling patient: Coding Level of Care Code 67441 INT INP/OBS CARE 2/55MIN Diagnoses Back pain M54.9 DM2 (diabetes mellitus, type 2) E11.9 Hyperlipidemia E78.5 GERD (gastroesophageal reflux disease) K21.9
[2023-11-02] MEDS ORDERED: CARBOHYDRATES FOR HYPOGLYCEMIA PO PRN (00:45)
[2023-11-02] MEDS ORDERED: ONDANSETRON INJ 2 MG/ML 2 ML VIAL IV PRN (00:45)
[2023-11-02] MEDS ORDERED: GLUCAGON FOR INJ 1 MG VIAL SQ PRN (00:45)
[2023-11-02] MEDS ORDERED: DOCUSATE SODIUM 100 MG CAP PO PRN (00:45)
[2023-11-02] MEDS ORDERED: GLUCOSE 40% GEL 15 GM TUBE PO PRN (00:45)
[2023-11-02] MEDS ORDERED: DEXTROSE 50% 50 ML SYRINGE IV PRN (00:45)
[2023-11-02] MEDS ORDERED: GLUCOSE 10 TAB/TUBE PO PRN (00:45)
[2023-11-02] MEDS ORDERED: POLYETHYLENE (MIRALAX) 17 GM PACK PO PRN (00:45)
[2023-11-02] MEDS ORDERED: HYDROmorphone INJ 0.5 MG/0.5 ML SYR IV PRN ×2 (00:45→10:40)
--- NOTE | 2023-11-02 01:04 | CT Scan Report ---
Exam(s): CT L SPINE With Contrast IV Amt: 93 ml opti 320 EXAM: CT Lumbar Spine With Intravenous Contrast CLINICAL HISTORY: Reason for exam: back pain w/ hx of surgery. TECHNIQUE: Axial computed tomography images of the lumbar spine with intravenous contrast. CTDI is 28.14 mGy and DLP is 1507.39 mGy-cm. Automated exposure control was utilized for the study. A dose lowering technique was utilized adhering to the principles of ALARA. CONTRAST: Patient received 93 ml opti 320 of IV contrast COMPARISON: No relevant prior studies available. FINDINGS: Vertebrae: See below. Discs/spinal canal/neural foramina: Posterior fusion at L4-5. L5 laminectomy. No CT evidence of hardware complication. No spinal canal stenosis. Soft tissues: Unremarkable. IMPRESSION: Posterior fusion at L4-5. L5 laminectomy. No CT evidence of hardware complication. Electronically signed by: Rishabh Weiner MD 11/02/23 01:03 AM
--- NOTE | 2023-11-02 01:17 | CT Scan Report ---
Exam(s): CT ABDOMEN + PELVIS With Contrast IV Amt: 93 ml opti 320 EXAM: CT Abdomen and Pelvis With Intravenous Contrast CLINICAL HISTORY: Reason for exam: Lower back pain, renal colic. TECHNIQUE: Axial computed tomography images of the abdomen and pelvis with intravenous contrast. Automated exposure control was utilized for the study. A dose lowering technique was utilized adhering to the principles of ALARA. CONTRAST: Patient received 93 ml opti 320 of IV contrast COMPARISON: 09/22/2021. FINDINGS: Lung bases: No consolidation. ABDOMEN: Liver: The liver is enlarged. Gallbladder and bile ducts: No calcified stones. No ductal dilation. Pancreas: No mass. No ductal dilation. Spleen: No splenomegaly. Adrenals: No mass. Kidneys and ureters: No solid mass. There are small bilateral renal calcifications. No hydronephrosis. Stomach and bowel: The stomach is relatively decompressed. There is air and stool noted in the colon. There are diverticula present on the colon. No significant inflammatory changes are noted.. PELVIS: Appendix: The appendix is not visualized.. Bladder: No calculi are noted within the bladder.. Reproductive: Unremarkable as visualized. ABDOMEN and PELVIS: Intraperitoneal space: No free air. No significant fluid collection. Bones/joints: There are postoperative and degenerative changes in the spine. Soft tissues: There is an umbilical hernia containing fat. There are bilateral inguinal hernias containing fat. Vasculature: No abdominal aortic aneurysm. Lymph nodes: No enlarged lymph nodes. IMPRESSION: There are small bilateral renal calcifications without evidence of hydronephrosis. Diverticulosis. Hepatomegaly. See discussion above Electronically signed by: Jack Weeks MD 11/02/23 01:15 AM
[2023-11-02] MEDS: HYDROmorphone INJ 0.5 MG/0.5 ML SYR IV STA (01:40)
[2023-11-02] MEDS: methylPREDNISolone 40 MG in SYRINGE 0 ML IV ONE (01:40)
[2023-11-02] MEDS: LIDOCAINE 5% 1 PATCH TD STA (01:42)
--- OUTSIDE RECORDS SUMMARY | 2023-11-02 01:50 | External Medical Summary | Continuity of Care Document ---
Author Name Unknown Organization [address] Address [address] [place] [id number] Care Team Providers Care Director Design Name Role Phone Karly Oliveros Primary Care Physician [phone] Encounter [id number] Date(s): 06/27/23 - 06/27/[address] [place] [address] [address] [phone] Encounter Diagnosis Diabetes mellitus(Discharge Diagnosis) - 06/27/23 HTN (hypertension)(Discharge Diagnosis) - 06/27/23 Discharge Disposition: Home or Self Care Attending Physician: DO Oliveros Kristen M Referring Physician: DO Oliveros Kristen M Allergies, Adverse Reactions, Alerts No Known Allergies Assessment and Plan Extracted from: Title:Office Visit Note Author:DO Oliveros Kriste n M Date:06/27/23 1.Diabetes mellitus Chronic condition, stable Goal:Resolution Data:unique tests ordered: _ Plan: _uncontrolled at A1c of 9 RTO 3 month A1c, cmp, lipid, micro check Mounjaro 2.5 for 4 doses and then increase 5 mg did well on Rybelsus--if no Mounjaro needs 7 or 14 2.HTN (hypertension) Chronic condition, stable Goal:Resolution Data:unique tests ordered: _ Plan: _well controlled Medications doxazosin 4 mg oral tablet Start: 06/15/22 10:20:00 EDT, See Instructions, Disp# 90 tab, Refills: 3, TAKE 1 TABLET BY MOUTH EVERY DAY, Pharmacy: [id number] Start Date: 06/15/22 Status: Ordered FREESTYLE DANIELA 14 DAY SENSOR FREESTYLE DANIELA 14 DAY SENSOR, See Instructions, Disp# 2 kit, Refills: 6, TEST 2-4 TIMES A DAY, Pharmacy [facility] [id number] Start Date: 09/06/20 Status: Ordered glipizide-metformin 2.5 mg-500 mg oral tablet Start: 05/06/23 15:37:00 EST, See Instructions, Disp# 360 tab, Refills: 3, TAKE 2 TABLETS BY MOUTH TWICE A DAY WITH BREAKFAST AND WITH SUPPER MEAL, Pharmacy: [id number] Start Date: 05/06/23 Status: Ordered Mounjaro 2.5 mg/0.5 mL subcutaneous solution Start: 06/27/23 15:31:00 EDT, 2.5 mg =, subQ, q7days, Disp# 2 mL, Refills: 0, Pharmacy: [facility]/pharmacy #[id number] Start Date: 06/27/23 Status: Ordered pantoprazole 40 mg oral delayed release tablet Start: 06/06/23 13:03:00 EDT, 1 tab, PO, Daily, Disp# 90 tab, Refills: 3, Pharmacy: [facility] Start Date: 06/06/23 Status: Ordered simvastatin 20 mg oral tablet Start: 06/14/22 11:57:00 EDT, See Instructions, Disp# 90 tab, Refills: 3, TAKE 1 TABLET BY MOUTH EVERYDAY AT BEDTIME, Pharmacy: [facility] Start Date: 06/14/22 Status: Ordered Mental Status 06/27/23 Barriers to Learning one year None evide nt Mandatory Health Literacy Documentation Yes Health Literacy Communication Barriers N ever Primary Language Jamaican Problem List Condition Confirmation Course Effective Dates Status H ealth Status Informant Abdominal pain Confirmed Active BPH without urinary obstruction Confirmed Active Chronic low back pain Confirmed Active Acute exacerbation of chronic low back pain Confirmed Active Diabetes mellitus Confirmed Active HTN (hypertension) Confirmed Active Hyperlipidemia Confirmed Active Nephrolithiasis Confirmed Active Elevated serum creatinine Confirmed Active Spinal stenosis Confirmed Active Diagnosis Diagnosis Type Effective Dates Health Status Cl inical Service Informant Diabetes mellitus Discharge Diagnosis 06/27/23 HTN (hypertension) Discharge Diagnosis 06/27/23 Procedures Procedure Date Related Diagnosis Body Site Status Cystoscopy and retrograde pyelography 09/22/21 Completed Eye examination - Diabetic 1 01/23/19 Completed Colonoscopy 2 03/08/16 Completed Spinal fusion 3 07/25/15 Completed appy Completed left wrist surgery Comple kathy right wrist surgery Compl eted T and A Completed 1Best corrected visual acuity is 20/20 OD and 20/20 OS. Biomicroscopy reveals no iris neovasculariation. Intraocular pressures were 15mmHg OD and 16mmHg OS. IMPRESSION: Patient is diabetic by history with mild non-proliferative dibetic retinopathy OU. 2COLO to cecum, single diverticulum with purulent discharge c/w diverticulitis, left colon diverticulosis, hemorrhoids, repeat colo 10 years. 3lumbar decompression, medial facetectomy and foraminotomy, L4-L5 and L5-S1 Vital Signs Most recent to oldest [Reference Range]: 1 Height 185.2 cm (06/27/23 3:08 PM) Patient Weight 137.2 kg (06/27/23 3:08 PM) Body Mass Index 40 kg/m2 (06/27/23 3:08 PM) Temperature [36.5-37.9 DegC] 35.9 DegC *LOW* (06/27/23 3:08 PM) Heart Rate 104 bpm (06/27/23 3:08 PM) Blood Pressure 128/80mmHg (06/27/23 3:08 PM) Cuff Pulse Pressure 48 mmHg (06/27/23 3:08 PM) Social History Social History Type Response Smoking Status Never smoked cigaret anna Sex Male FCM Outpt Note * DO Oliveros Kristen M: PERFORM, MODIFY Event Display: FCM Outpt Note Authored Date: Chief Complaint DM check History of Present Illness Pt presents to discuss diabetes. Pt states he really isn't tolerating metaglip it is bad for his abdomen. Review of Systems ROS: Denies MCCALLUM, visual changes, SOB, CP, N/V, no edema, fever, chills, dysuria, bowel changes Physical Exam Vitals & Measurements T:35.9C HR:104(Monitored) BP:128/80 SpO2:96% HT:185.2cm WT:137.200kg(Dosing) WT:137.2kg BMI:40 G: AAAOx3, NAD H: RR normal S1/S2 no M/R/G L: CTA b/l no r/r/w A: soft +bs nt nd E: no c/C/E b/l, pos distal pulses P: normal affect and insight, no homicidal/suicidal ideation Assessment/Plan 1.Diabetes mellitus Chronic condition, stable Goal:Resolution Data:unique tests ordered: _ Plan: _uncontrolled at A1c of 9 RTO 3 month A1c, cmp, lipid, micro check Mounjaro 2.5 for 4 doses and then increase 5 mg did well on Rybelsus--if no Mounjaro needs 7 or 14 2.HTN (hypertension) Chronic condition, stable Goal:Resolution Data:unique tests ordered: _ Plan: _well controlled Attestation I spent4 mintime in previsit planning including prepping note and chart review . I spent22 time in face to face interaction with patient concerning the issues that brought them in today. I spent4 min time in post visit planning including finishing note and depart process Total time spent today on patient visit30 min Problem List/Past Medical History Ongoing Abdominal pain Acute exacerbation of chronic low back pain Atypical pneumonia BPH without urinary obstruction Chronic low back pain Diabetes mellitus Elevated serum creatinine HTN (hypertension) Hyperglycemia Hyperlipidemia Left hand pain Left shoulder pain Nephrolithiasis Pain of left calf Renal colic Rupture of left proximal biceps tendon Spinal stenosis Historical Acute DVT of left tibial vein Acute renal injury Well adult exam Procedure/Surgical History Cystoscopy and retrograde pyelography| Service Date: 09/22/2021Eye examination - Diabetic| Service Date: 01/23/2019Colonoscopy| Service Date: 03/08/2016Spinal fusion| Service Date: 07/25/2015T and Aappyleft wrist surgeryright wrist surgery Medications doxazosin(doxazosin 4 mg oral tablet), See Instructions glipizide-metformin(glipizide-metformin 2.5 mg-500 mg oral tablet), See Instructions pantoprazole(pantoprazole 40 mg oral delayed release tablet), 1 tab, PO, Daily semaglutide(Rybelsus 7 mg oral tablet), 7 mg= 1 tab, PO, Daily, 5 refills simvastatin(simvastatin 20 mg oral tablet), See Instructions unlisted medication(FREESTYLE DANIELA 14 DAY SENSOR), See Instructions Allergies NKA Social History Smoking Status Former Smoker, quit > 1 yr Alcohol - Low Risk Employment/School - Medium Risk Sexual - Low Risk Substance Abuse - No Risk Tobacco - No Risk Family History Diabetes: Mother. Parkinson disease: Father. Health Status Family Member(s) Recommendations Health Maintenance Pending(in the next year) OverDue Adult Influenza Vaccine due09/14/22and every 1year Due Adult COVID-19 Vaccination due06/27/23Unknown Frequency Adult Social Determinants of Health Screening due06/27/23Unknown Frequency Adult Tdap/Td Vaccine due06/27/23Unknown Frequency Diabetes Nephropathy Management due06/27/23Unknown Frequency Hepatitis C Screening due06/27/23One-time only Pneumococcal Vaccine Adults and Adolescents with Chronic Illness due06/27/23One-time only Shingles Vaccine due06/27/23One-time only Due In Future Body Mass Index not due until08/08/23and every 366day Diabetic Eye Exam not due until08/28/23and every 366day Diabetes Management A1c not due until05/23/24and every 366day Satisfied(in the past 1 year) Satisfied Body Mass Index on08/07/22.Satisfied by HUBER Roberts Bobbi Diabetes Management A1c on05/23/23.Satisfied by [employer], [employer] Diabetic Eye Exam on08/27/22.Satisfied by HUBER Pina Angela Electronic Signature on File Electronically Reviewed/Signed by: Karly Oliveros DO Author Signature Dt/Tm:06/27/2023 03:39 PM Department of Family Medicine [facility] Patient Care team information Care Team Personnel Name: DO Oliveros Kristen M Position: Physician - Family Med Member Role: Primary Care Provider Address: Address: [address] [place] [address] Care Team Related Persons Name: ORLANDO CASTRO Address: [facility] Address: home [address], [place] [id number] Name: JONY CASTRO Address: [address] [place] [id number] Name: JONY CASTRO Address: [place] Address: home [address], [place] [id number]"
[2023-11-02] MEDS: HYDROmorphone INJ 0.5 MG/0.5 ML SYR IV PRN (06:25)
[2023-11-02 07:00] LABS: BUN Creatinine Ratio 14.5 (10-20); Creatinine Clr Calc Pharmacy 136.3 ml/min; Est GFR (African American) 112.4 ml/min; Potassium 4.5 mmol/L (3.5-5.1)
--- NOTE | 2023-11-02 07:39 | Hospitalist Progress Note ---
Date of Service November 02, 2023 Assessment & Plan (1) Back pain: Plan: Acute on chronic back pain without radicular symptoms 58yo male with history of lumbar spinal stenosis s/p L5 laminectomy and fusion L4-[place] [address] Pradhan 1.5 weeks of persistent central lower back pain with radiation to left anterior thigh. acute worsening day of admission. No falls or trauma. frequent severe muscle spasms. Strength, sensation and reflexes are intact. request consult with Dr Pradhan -Multi-modal pain control with Tylenol 1gm PO TID -Toradol 15mg IV q 6 hours PRN -Solumedrol 40mg IV daily -Flexeril 10mg po TID PRN -Lidoderm patch -Heat -Dilaudid iv PRN -Bowel regimen with Colace and Miralax PRN -Supplemental O2 as needed with continuous pulse oximetry monitoring (2) DM2 (diabetes mellitus, type 2): Plan: Patient is on Glipizide-Metformin daily as well as Mounjaro injections weekly. He reports adequate blood sugar control. -Hold home medications -Lantus 12 u BID -ISS - CF=25, CR=12 - Goal blood sugar 110 - 140 (3) Hyperlipidemia: Plan: Chronic. Stable -Continue Simvastatin 20mg po qHS (4) GERD (gastroesophageal reflux disease): Plan: Chronic. Stable -Continue Protonix 40mg PO BID Plan PPx - Lovenox Code - Full Admission and Anticipated Discharge Date Admission Date: November 01, 2023 Subjective pt with left sided back, anterior groin and thigh pain, too tender to examine, worse with movement no loss of sensation progressive over last few days Physical Exam Physical Exam: awake and alert very tender to gentle touch, no defined cut of sensation, painful to move cannot test SLR Results & Data Results & Data Vital Signs (Past 12 Hours) Vital Signs Temp Pulse Pulse Pulse Resp BP BP 11/02/23 07:18 98.1 F 73 14 148/92 H 11/02/23 02:46 11/02/23 01:03 97.5 F L 78 18 11/02/23 00:00 58 L 18 147/102 H 11/01/23 23:00 89 18 132/84 11/01/23 21:44 75 14 145/92 H 11/01/23 20:17 98.6 F 96 H 18 151/105 H 11/01/23 20:14 97 H BP Pulse Ox Pulse Ox O2 Del Method O2 Del Method O2 Flow Rate O2 Flow Rate 11/02/23 07:18 97 Nasal Cannula 3 11/02/23 02:46 95 Nasal Cannula 2 11/02/23 01:03 152/95 H 94 Room Air 11/02/23 00:00 95 Room Air 11/01/23 23:00 96 Room Air 11/01/23 21:44 97 Nasal Cannula 2 11/01/23 20:17 94 Room Air 11/01/23 20:14 PG Care Time/CCT Total # of Minutes Spent Total Time Spent with Patient: Total time spent is greater than 50% in coordination of care (as documented) at patient's floor/unit and/or counseling patient: Coding Level of Care Code 13374 SUB INP/OBS CARE 2/35MIN Diagnoses Back pain M54.9 DM2 (diabetes mellitus, type 2) E11.9 Hyperlipidemia E78.5 GERD (gastroesophageal reflux disease) K21.9
--- NOTE | 2023-11-02 09:55 | Orthopedic Consultation ---
Date of Consultation November 02, 2023 Assessment & Plan (1) Spinal stenosis of lumbar region with radiculopathy: CAT scan lumbar spine available for review demonstrates solid fusion L4-S1 with adjacent level facet hypertrophy particular with displacement of the left facet joint L3-4. I would like to obtain an MRI lumbar spine for further details of the neural anatomy. I strongly suspect an L3 compression and subsequent radiculopathy. Make further conditions upon review. History of Present Illness Reason for Consultation: Back and left leg pain Attending Physician: Travis Flores MD History of Present Illness This is a 58-year-old male well-known to me that presents with worsening back and left leg pain for little over a week. Denies any specific trauma fall or event. It radiates from the lumbar spine into the groin and down his left thigh to just below the knee. The right leg is asymptomatic. He is status post lumbar decompression fusion L4-S1 approximately 8 years ago and doing well since surgery. He is unable to function at this time secondary to pain. Allergies Allergy/AdvReac Type Severity Reaction Status Date / Time No Known Allergies Allergy Verified 09/19/21 00:03 Home Medications Medication Instructions Recorded Confirmed Type doxazosin 4 mg tablet 4 mg PO DAILY 07/26/18 11/02/23 History pantoprazole 40 mg tablet,delayed 40 mg PO DAILY 07/26/18 11/02/23 History release simvastatin 20 mg tablet 20 mg PO HS 07/26/18 11/02/23 History ondansetron 4 mg disintegrating 4 mg PO Q6H PRN nausea and 09/16/21 09/22/21 Rx tablet vomiting #15 tabs oxycodone 5 mg tablet 5 mg PO Q4H PRN pain #15 tabs 09/16/21 09/22/21 Rx lisinopril 2.5 mg tablet 2.5 mg PO DAILY 09/19/21 09/22/21 History oxycodone 5 mg tablet 10 mg (2 x 5 mg) PO Q6H PRN pain 09/19/21 09/22/21 Rx #14 tabs apixaban 5 mg (74 tabs) tablets in 5 mg PO BID #74 ea 09/20/21 09/22/21 Rx a dose pack (Eliquis) glipizide 2.5 mg-metformin 500 mg 2.5 - 500 tab PO DAILY Diabetes 09/22/21 11/02/23 History tablet oxybutynin chloride 5 mg tablet 5 mg PO BID PRN bladder spasms #20 09/25/21 Rx tabs tamsulosin 0.4 mg capsule (Flomax) 0.4 mg PO DAILY #10 caps 09/25/21 Rx Patient History Medical History (Updated 11/02/23 @ 09:54 by Galen Pradhan DO) Acute deep vein thrombosis (DVT) of left lower extremity Kidney stones Surgical History (Updated 11/02/23 @ 00:56 by Hermelinda Ross DO) History of back surgery Family History Other Family history non-contributory Social History Smoking Status: Former smoker Tobacco Type: Cigarettes Hx Alcohol Use: Yes Alcohol type: wine Hx Substance Use: No Preferred Language: [place] Collator Hand Required: No Beliefs That Will Affect Care: None marital status: Current Living Situation: Spouse current occupational status: employed Other Information That Helps Us Care for You: No Feels Safe at Home: Yes Safety Concerns: Feels Safe At This Time Assistive Devices: Glasses Physical Exam Physical Exam: On exam patient is lying supine. Is not his distress. He has reasonable plantarflexion dorsiflexion bilateral lower extremities. Quadriceps are limited on the left compared to the right. He is hypersensitive to light touch to the left quadricep compared to the right. Results & Data Vital Signs (Past 12 Hours) Vital Signs Temp Pulse Pulse Resp BP BP Pulse Ox 11/02/23 07:18 36.7 C 73 14 148/92 H 97 11/02/23 02:46 11/02/23 01:03 36.4 C L 78 18 152/95 H 94 11/02/23 00:00 58 L 18 147/102 H 95 11/01/23 23:00 89 18 132/84 96 Pulse Ox O2 Del Method O2 Del Method O2 Flow Rate O2 Flow Rate 11/02/23 07:18 Nasal Cannula 3 11/02/23 02:46 95 Nasal Cannula 2 11/02/23 01:03 Room Air 11/02/23 00:00 Room Air 11/01/23 23:00 Room Air
[2023-11-02] MEDS: KETOROLAC TROMETHAMINE 15 MG/ML VIAL IV PRN (10:30)
[2023-11-02] MEDS: CYCLOBENZAPRINE HCL 10 MG TAB PO PRN (10:31)
[2023-11-02] MEDS: DOXAZosin MESYLATE 4 MG TAB PO SCH (10:32)
[2023-11-02] MEDS: ACETAMINOPHEN 500 MG TAB PO SCH (10:33)
[2023-11-02] MEDS: PANTOprazole 40 MG TAB PO SCH (10:34)
[2023-11-02] MEDS: INSULIN ASPART PER UNIT CHARGE SC SCH (10:44)
[2023-11-02] MEDS: LANTUS PER UNIT CHARGE SQ SCH (10:44)
[2023-11-02] MEDS: ENOXAPARIN INJ 40 MG/0.4 ML SYR SQ SCH (10:45)
[2023-11-02] MEDS: HYDROmorphone INJ 1 MG/ML SYRINGE IV PRN (15:04)
[2023-11-02] MEDS: oxyCODONE HCL IR 5 MG TAB (IMMEDIATE RELEASE) PO PRN (18:03)
--- NOTE | 2023-11-02 18:46 | Magnetic Resonance Report ---
MRI OF THE LUMBAR SPINE WITHOUT IV CONTRAST CLINICAL HISTORY: Acute onset low back pain. Left leg pain. COMPARISON STUDY: CT scan of the lumbar spine dated 11/01/2023. MRI of lumbar spine dated 06/20/2015. TECHNIQUE: MRI of the lumbar spine is performed utilizing various T1 and T2-weighted sequences in the axial and sagittal planes. IV contrast was not administered for this examination. FINDINGS: Lumbar spine: Vertebral body height and alignment is maintained throughout the lumbar spine. Tiny ant erior osteophytes are seen throughout. There is postsurgical change from laminectomy and posterior fu demetra at L4-S1. Interpedicular screws are present at all levels. The transverse processes are grossly intact. No destructive bony process is seen. Chronic degenerative endplate changes noted at L4-L5 and L5-S1. No significant endplate edema is identified. Intervertebral discs: Discectomy change is noted at L4-L5 and L5-S1. Disc desiccation is seen at the remaining lumbar levels. There is only minimal loss of height at L3-L4. Spinal cord: The visualized spinal cord is normal in morphology and signal intensity. The conus medul kristina terminates at the L1-L2 interspace. The nerve roots of the cauda equina are normal in morpholog y. L1-L2: Unremarkable. L2-L3: Mild facet arthropathy is of no consequence. The central canal and neural foramina are patent. L3-L4: There is broad-based posterior disc bulge with annular fissure. In conjunction with hypertroph y of the ligamentum flavum, there is uxydvizj-ix-pkbatl central canal stenosis at this level with a m inimum AP canal diameter of 5.5 mm. Lateral disc bulge appears to bilateral subarticular stenosis. Th is may impinge the exiting L3 nerve root. In conjunction with facet arthropathy, there is moderate-to -severe left and jajh-yg-nudvigfd right neural foraminal stenosis. L4-L5: The central canal and neural foramina are grossly patent. L5-S1: The central canal and neural foramina are grossly patent. Sacrum: Imaged portions of the sacrum are normal in morphology and signal intensity. Soft tissues: Postsurgical changes seen posterior to the thecal sac at the operative levels. There is mild fatty atrophy of the paraspinous musculature. The retroperitoneal structures are grossly unrema rkable, but incompletely evaluated. IMPRESSION: 1. Postsurgical and spondylotic change as above noting mhappfmi-pr-fcvkxh central canal stenosis at L 3-L4. See discussion for detailed ssuur-oz-wxrwt analysis. 2. No destructive bony process is seen. Dictated: 11/02/2023 11:31 AM Transcribed: 11/02/2023 11:49 AM [place] [id number] Electronically signed by: Harjeet Ramos M.D. 11/02/2023 6:45 PM
[2023-11-02] MEDS: SIMVASTATIN 20 MG TAB PO SCH (20:43)
[2023-11-02] MEDS: methylPREDNISolone 40 MG in SYRINGE 0 ML IV SCH (20:43)
--- NOTE | 2023-11-03 07:33 | Orthopedic Progress Note ---
Date of Service November 03, 2023 Assessment & Plan (1) Spinal stenosis of lumbar region with radiculopathy: Plan: This point the patient is having severe pain. He has ambulatory dysfunction secondary to the pain. We have reviewed options for treatment ranging from conservative up toward surgical. Surgically he would require removal of hardware from L4 to the sacrum lumbar decompression at L3-4 and fusion at L3-4 as well. I discussed precise nature of the surgery including length of stay in the hospital, length of the procedure, and recovery times. We also discussed the risks of surgery which include from anesthetic, blood loss, adjacent level disease with need for more surgery, incomplete relief of his symptoms, worsening of his symptoms, medical complications. We will go ahead to make arrangements to move forward with the procedure. Hopefully to be done as an add-on tomorrow. Admission and Anticipated Discharge Date Admission Date: November 01, 2023 Subjective Patient was seen bedside in room 352. He continues to complain of severe pain going down his left side left thigh going down past the knee. Standing and walking is very difficult. He had a CT scan and an MRI performed which were reviewed. He cannot function as he is at this point. He denies any other numbness, tingling, or paresthesias. Denies any change in bladder or bowel function. Physical Exam Physical Exam: On exam he is lying in bed. He is alert and oriented. His lower extremity motor exam reveals no focal atrophy strength and sensation are both intact his gait is stable he has full range of motion of the hips and knees without ir ritability. Abdomen soft and nontender his calves are supple and nontender. Results & Data Vital Signs (Past 12 Hours) Vital Signs Temp Pulse Resp BP Pulse Ox Pulse Ox O2 Del Method 11/03/23 07:17 86 18 139/86 98 Nasal Cannula 11/03/23 02:00 98 11/02/23 21:36 36.9 C 74 14 150/78 H 96 Room Air O2 Del Method O2 Flow Rate O2 Flow Rate 11/03/23 07:17 2 11/03/23 02:00 Nasal Cannula 2 11/02/23 21:36 Diagnostic Findings MRI of the lumbar spine was reviewed. This reveals postoperative changes noted from L4 to the sacrum. Spinal canal is well decompressed. There are chronic changes in the endplates. At L3-4 there is facet arthropathy bilaterally left side worse than right creating severe subarticular and foraminal stenosis on the left and moderate to severe on the right. There is moderate to severe baseline stenosis secondary to facet arthropathy centrally.
--- NOTE | 2023-11-03 08:44 | Anesthesiology Consultation ---
Date of Service November 03, 2023 Assessment & Plan (1) Encounter for pre-operative examination: Chart Review Chart Review: Acceptable Risk for Surgery (does need preop ECG ) History Height/Weight Height: 6 ft Weight: 132 kg Allergies Allergy/AdvReac Type Severity Reaction Status Date / Time No Known Allergies Allergy Verified 09/19/21 00:03 Medications Home Medications Medication Instructions Recorded Confirmed Last Taken doxazosin 4 mg tablet 4 mg PO DAILY 07/26/18 11/02/23 09/22/21 pantoprazole 40 mg tablet,delayed 40 mg PO DAILY 07/26/18 11/02/23 09/22/21 release simvastatin 20 mg tablet 20 mg PO HS 07/26/18 11/02/23 09/21/21 ondansetron 4 mg disintegrating 4 mg PO Q6H PRN nausea and 09/16/21 09/22/21 09/22/21 tablet vomiting #15 tabs oxycodone 5 mg tablet 5 mg PO Q4H PRN pain #15 tabs 09/16/21 09/22/21 09/21/21 lisinopril 2.5 mg tablet 2.5 mg PO DAILY 09/19/21 09/22/21 09/22/21 oxycodone 5 mg tablet 10 mg (2 x 5 mg) PO Q6H PRN pain 09/19/21 09/22/21 Unknown #14 tabs apixaban 5 mg (74 tabs) tablets in 5 mg PO BID #74 ea 09/20/21 09/22/21 09/22/21 09:00 a dose pack (Eliquis) glipizide 2.5 mg-metformin 500 mg 2.5 - 500 tab PO DAILY Diabetes 09/22/21 11/02/23 09/22/21 tablet oxybutynin chloride 5 mg tablet 5 mg PO BID PRN bladder spasms #20 09/25/21 Unknown tabs tamsulosin 0.4 mg capsule (Flomax) 0.4 mg PO DAILY #10 caps 09/25/21 Unknown Active Medications Generic Name Dose Route Start Last Admin Trade Name Freq PRN Reason Stop Dose Admin Acetaminophen 1,000 mg 11/02/23 09:00 11/02/23 20:43 Acetaminophen 500 Mg Tab PO 12/02/23 08:59 1,000 mg TID RYLEE Administration Cyclobenzaprine HCl 10 mg 11/02/23 00:45 11/02/23 10:31 Cyclobenzaprine Hcl 10 Mg Tab PO 12/02/23 00:44 10 mg TID PRN Administration spasm Doxazosin Mesylate 4 mg 11/02/23 09:00 11/02/23 10:32 Doxazosin Mesylate 4 Mg Tab PO 12/02/23 08:59 4 mg DAILY RYLEE Administration Enoxaparin Sodium 40 mg 11/02/23 09:00 11/02/23 10:45 Enoxaparin Inj 40 Mg/0.4 Ml Syr SQ 12/02/23 08:59 Not Given QAM [facility] Hydromorphone HCl 1 mg 11/02/23 10:41 11/03/23 04:39 Hydromorphone Inj 1 Mg/Ml Syringe IV 11/16/23 10:40 1 mg Q3H PRN Administration Pain (6,7,8,9,10) Methylprednisolone 40 mg/ 0.64 mls @ 1.5 mls/min 11/02/23 21:00 11/02/23 20:43 Syringe IV 12/02/23 20:59 1.5 mls/min Q24H RYLEE Administration Insulin Aspart 0 units 11/02/23 07:30 11/02/23 21:25 Insulin Aspart Per Unit Charge SC 12/02/23 07:29 Not Given ACHS [facility] Insulin Glargine 12 units 11/02/23 09:00 11/02/23 21:25 Lantus Per Unit Charge SQ 12/02/23 08:59 Not Given BID RYLEE Ketorolac Tromethamine 15 mg 11/02/23 00:45 11/02/23 20:43 Ketorolac Tromethamine 15 Mg/Ml Vial IV 11/07/23 00:44 15 mg Q6H PRN Administration Pain Oxycodone HCl 10 mg 11/02/23 07:38 11/02/23 18:03 Oxycodone Hcl Ir 5 Mg Tab (Immediate Release) PO 11/16/23 07:37 10 mg Q6H PRN Administration Moderate Pain 4-6/10 Pantoprazole Sodium 40 mg 11/02/23 09:00 11/02/23 10:34 Pantoprazole 40 Mg Tab PO 12/02/23 08:59 40 mg DAILY RYLEE Administration Simvastatin 20 mg 11/02/23 21:00 11/02/23 20:43 Simvastatin 20 Mg Tab PO 12/02/23 20:59 20 mg HS RYLEE Administration Past Medical History Medical History (Updated 11/03/23 @ 08:46 by Dick Kiser MD) Obesity Spinal stenosis of lumbar region with radiculopathy GERD (gastroesophageal reflux disease) BPH (benign prostatic hyperplasia) DM2 (diabetes mellitus, type 2) Hyperlipidemia DVT (deep venous thrombosis) Kidney stones Past Family History Family History Other Family history non-contributory Past Surgical History Surgical History History of back surgery Social History Smoking Status: Former smoker Hx Alcohol Use: Yes Alcohol type: wine alcohol intake frequency: holidays/special occasions only Hx Substance Use: No substance use type: does not use Physical Exam Vital Signs Last Vital Signs Temp 36.9 C 11/02/23 21:36 Pulse 86 11/03/23 07:17 Resp 18 11/03/23 07:17 BP 139/86 11/03/23 07:17 Pulse Ox 98 11/03/23 07:17 O2 Del Method Nasal Cannula 11/03/23 07:17 O2 Flow Rate 2 11/03/23 07:17 Testing Laboratory Results 11/01/23 20:25 11/02/23 05:59 11/03/23 07:32 POC Glucose 200 H
--- NOTE | 2023-11-03 12:14 | Electrocardiogram Report ---
Test Reason : Blood Pressure : */* mmHG Vent. Rate : 79 BPM Atrial Rate : 79 BPM P-R Int : 182 ms QRS Dur : 100 ms QT Int : 388 ms P-R-T Axes : 54 5 32 degrees QTcB Int : 444 ms Normal sinus rhythm Normal ECG When compared with ECG of 20-Sep-2021 19:56, No significant change was found Confirmed by Koby Gillespie ([id number]) on 11/03/2023 12:13:34 PM Referred By: REFERRED SELF Confirmed By: Koby Gillespie
--- NOTE | 2023-11-03 13:11 | Hospitalist Progress Note ---
Date of Service November 03, 2023 Assessment & Plan (1) Back pain: Plan: Acute on chronic back pain without radicular symptoms 58yo male with history of lumbar spinal stenosis s/p L5 laminectomy and fusion L4-[address] [place] [address] Pradhan 1.5 weeks of persistent central lower back pain with radiation to left anterior thigh. acute worsening day of admission. No falls or trauma. frequent severe muscle spasms. MRI LS spine enxceyio-sc-susall central canal stenosis at L3-L4. possible add on case this week -Multi-modal pain control with Tylenol 1gm PO TID -Toradol 15mg IV q 6 hours PRN -Solumedrol 40mg IV daily -Flexeril 10mg po TID PRN -Lidoderm patch -Heat -Dilaudid iv PRN -Bowel regimen with Colace and Miralax PRN -Supplemental O2 as needed with continuous pulse oximetry monitoring (2) DM2 (diabetes mellitus, type 2): Plan: Patient is on Glipizide-Metformin daily as well as Mounjaro injections weekly. He reports adequate blood sugar control. -Hold home medications -Lantus 12 u BID -ISS - CF=25, CR=12 - Goal blood sugar 110 - 140 (3) Hyperlipidemia: Plan: Chronic. Stable -Continue Simvastatin 20mg po qHS (4) GERD (gastroesophageal reflux disease): Plan: Chronic. Stable -Continue Protonix 40mg PO BID Plan PPx - Lovenox now on hold Code - Full Admission and Anticipated Discharge Date Admission Date: November 01, 2023 Subjective pt with persistent discomfort requiring parenteral opiates, has severe spinal canal narrowing on MRI, tentative surgery this week Physical Exam Physical Exam: radicular pain but not with persistent loss of sensation left leg to foot Results & Data Results & Data Vital Signs (Past 12 Hours) Vital Signs Pulse Resp BP Pulse Ox Pulse Ox O2 Del Method O2 Del Method 11/03/23 08:30 Room Air 11/03/23 07:17 86 18 139/86 98 Nasal Cannula 11/03/23 02:00 98 Nasal Cannula O2 Flow Rate O2 Flow Rate 11/03/23 08:30 11/03/23 07:17 2 11/03/23 02:00 2 PG Care Time/CCT Total # of Minutes Spent Total Time Spent with Patient: Total time spent is greater than 50% in coordination of care (as documented) at patient's floor/unit and/or counseling patient: Coding Level of Care Code 31117 SUB INP/OBS CARE MIN Diagnoses Back pain M54.9 DM2 (diabetes mellitus, type 2) E11.9 Hyperlipidemia E78.5 GERD (gastroesophageal reflux disease) K21.9
--- NOTE | 2023-11-04 12:00 | History & Physical Bridge Note ---
Date of Service November 04, 2023 History & Physical Bridge Note I have examined the patient, reviewed the History & Physical and in the interval since the performance of the History & Physical I have noted the following changes of clinical significance: no changes noted Patient is struggling with severe pain requiring IV narcotic medications to control symptoms. Is marked difficulty with standing and ambulation secondary to severe radiculopathy with breakaway weakness to left lower extremity. He is currently anticoagulated in the safe window for surgical invention. Subsequently recommending emergent lumbar decompression and fusion L3-L4 with removal of instrumentation L4-S1.
[2023-11-04] MEDS ORDERED: fentaNYL citrate PF 100 MCG/2 ML VIAL ONE ×2 (12:27→14:28)
[2023-11-04] MEDS ORDERED: PROPOFOL IV EMULSION 10 MG/ML 20 ML VIAL IV ONE (12:27)
[2023-11-04] MEDS ORDERED: ONDANSETRON INJ 2 MG/ML 2 ML VIAL ONE (12:27)
[2023-11-04] MEDS ORDERED: LIDOCAINE 2% 2 ML VIAL/AMP(20MG/ML) INFIL ONE ×2 (12:27→12:29)
[2023-11-04] MEDS ORDERED: DEXAMETHASONE SOD INJ 4 MG/ML VIAL ONE (12:27)
[2023-11-04] MEDS ORDERED: MIDAZOLAM HCL 1 MG/ML 2ML VIAL ONE (12:27)
[2023-11-04] MEDS ORDERED: ROCURONIUM BROMIDE 10 MG/ML 5 ML VIAL IV ONE ×10 (12:29→14:25)
[2023-11-04] MEDS: LACTATED RINGER'S 1,000 ML IV SCH ×2 (12:40→18:14)
[2023-11-04] MEDS ORDERED: ATROPINE SULFATE 0.1 MG/ML 10ML SYR IV PRN (13:14)
[2023-11-04] MEDS ORDERED: ONDANSETRON INJ 2 MG/ML 2 ML VIAL IV PRN ×2 (13:14→17:48)
[2023-11-04] MEDS ORDERED: ePHEDrine sulfate 50 MG/ML AMP IV PRN (13:14)
[2023-11-04] MEDS: ceFAZolin 2000MG 2,000 MG/15 ML SYR IV ONE (14:03)
[2023-11-04] MEDS ORDERED: SUGAMMADEX SODIUM 200 MG/2 ML VIAL IV ONE (14:32)
[2023-11-04] MEDS ORDERED: ePHEDrine sulfate 50 MG/ML AMP ONE (14:51)
[2023-11-04] MEDS: ceFAZolin 2,000 MG/15 ML IV PUSH IV ONE (14:54)
[2023-11-04] MEDS: ceFAZolin 330 MG/ML 1 GM VIAL ONE (15:52)
[2023-11-04] MEDS: FLOSEAL HEMOSTATIC MATRIX 10ML TOP ONE (15:57)
--- NOTE | 2023-11-04 16:05 | Operative Report ---
Post Operative Report Pre & Post Diagnosis Operation Date: 11/04/23 09:40 Pre-Op Diagnosis: Spinal Stenosis of Lumbar Region with Radiculopathy Post-Op Diagnosis: Spinal Stenosis of Lumbar Region with Radiculopathy I identified the patient and participated in the time-out.: Yes Procedure Operation Date: 11/04/23 09:40 Actual Procedures #1 removal of posterior instrumentation L4-S1. #2 exploration of fusion L4-S1. #3 lumbar decompression with bilateral medial facetectomies and foraminotomies L2-L3 L3-L4. #4 posterior spinal fusion L3-L4. #5 placement posterior instrumentation L3-S1. #6 interbody fusion L3-L4. #7 placement of Spira 15 x 26 mm cage at L3-L4. #8 placement locally harvested morselized autograft in the posterior lateral gutters. #9 placement of infuse collagen sponge combined with Koros in the posterior lateral gutters and os design interbody space. #10 placement of versa wrap on the exposed dura. Surgeon Galen Pradhan, DO Knife Setter Grinder Machine Lulu Ramirez Estimated Blood Loss 250 Findings See Below The patient is 6 foot tall weighing 132 kg with a BMI in excess of 39. The patient's body was did contribute to significant technical difficulty with positioning exposure and the procedure itself and at least 50% increased operative time. Specimens None Indications This is a 58-year-old male who presents to hospital with severe back and radicular pain. Patient is requiring IV narcotic medications to control his pain and marked imitations with transfers and ambulation. Patient is currently off his anticoagulation and we recommended emergent decompression fusion so that we can begin mobilization healing and reinitiation of anticoagulation. Description of Procedure Patient was met with identified informed consent obtained. Patient was then taken to the operative suite underwent patient placed in a prone position on the Servando table on top of the Richard frame. All bony promises well-padded eyes inspected to ensure no external pressure placed upon the. This point the lumbar spine was prepped and draped in normal sterile fashion. Sharp dissection with the assistance of Bovie cautery was formed down to and exposing the lamina transverse processes of L2-3 and instrumentation at L4-5 and S1 levels bilaterally. Then proceeded to move the hardware bilaterally explored the fusion mass noting it to be mature and intact. And then performed a complete laminectomy of L3 including bilateral medial facetectomies and foraminotomies addressing all spinal stenosis as well as partial laminectomy of L2 with bilateral medial facetectomies to address all lateral recess disease. There was evidence of a disc herniation at L3-L4 on the left there was also removed as it had migrated caudally compressing the traversing nerve on the left. Pedicle screws then placed in L3-L4 and S1 levels bilaterally with assistance of fluo roscopy and appropriate size max placed. By way of a transforaminal approach on the left a complete discectomy of L3-L4 was performed endplates corrected to subcortical bleeding bone and a 15 x 26 mm Spira cage filled with Oxyzyme bone graft tapped in position. The rods were then compressed locked into final position bilaterally. The transverse processes of L3-L4 burred to subcortical bleeding bone. Infuse collagen sponge combined with Koros and local autograft placed in the posterior lateral gutters. Versa wrap placed over the exposed dura. 15 round OCTAVIANO drain inserted. The incision was then closed with 1 Vicryl and fascia 2-0 Vicryl subcutaneously and 4 Monocryl for final skin closure. Steri-Strips sterile dressing placed. Patient waken taken to PACU stable condition. Please note spinal cord monitoring was utilized at the procedure no changes noted. Lastly Lulu Ramirez was present out the entire procedure and all the patient position complex portion of the surgery and final skin closure. I attest to the content of the Intraoperative Record and any orders documented therein. Any exceptions are noted below.
[2023-11-04] MEDS: fentaNYL citrate PF 100 MCG/2 ML VIAL IV PRN (16:25)
[2023-11-04] MEDS: BUPIVACAINE/EPINEPHRINE 0.25% 1:200,000 30 ML VIAL ONE (16:26)
[2023-11-04] MEDS: HYDROmorphone INJ 2 MG/ML SYR/VIAL ONE (16:45)
--- NOTE | 2023-11-04 16:51 | Anesthesiology Progress Note ---
Date of Service November 04, 2023 Anesthesia Post Procedure Vital Signs Vital Signs: Temp Pulse Pulse Resp BP BP Pulse Ox 11/04/23 16:22 36.2 C L 113 H 16 158/89 H 99 11/04/23 12:30 36.6 C 84 20 158/105 H 98 11/04/23 12:26 36.4 C L 116 H 20 158/101 H 97 11/04/23 08:32 36.7 C 78 12 150/98 H 97 11/04/23 08:30 11/03/23 21:22 36.5 C 77 18 148/88 H 156/93 H 98 O2 Del Method O2 Flow Rate 11/04/23 16:22 Oxymask 6 11/04/23 12:30 Room Air 11/04/23 12:26 Room Air 11/04/23 08:32 Room Air 11/04/23 08:30 Room Air 11/03/23 21:22 Room Air Pain Intensity Medial Back: Pain Intensity: 5 Transfer of Care Handoff Completed per policy Notes Mental Status: alert / awake / arousable Patient Amnestic to Procedure: Yes Nausea / Vomiting: adequately controlled Pain: adequately controlled Airway Patency, RR, SpO2: stable & adequate BP & HR: stable & adequate Hydration State: stable & adequate Anesthetic Complications: no major complications apparent and Pt Satisfied with anesthetic care
[2023-11-04] MEDS ORDERED: HYDROmorphone INJ 0.5 MG/0.5 ML SYR IV PRN ×2 (16:57→17:48)
--- NOTE | 2023-11-04 17:00 | Fluoroscopy Report ---
FL lumbar spine 2-3V CLINICAL HISTORY: LUMBER FUSION TECHNIQUE: 2 views were obtained with the C-arm in the OR with the above procedure. Total fluoroscopy time was 11.5 seconds. Radiation dose was 9.1 mGy. Comparison: Comparison is made to MRI lumbar spine 11/02/2023 FINDINGS/IMPRESSION: Intraoperative images were obtained of posterior fusion hardware placement. Please correlate with intraoperative fluoroscopy and operative report. ACT 112: Negative or not required by law. Electronically signed by: Rito Sneed M.D. 11/04/2023 4:59 PM
[2023-11-04] MEDS ORDERED: DO NOT ADMINISTER PNEUMOCOCCAL VACCINE PRN (17:48)
[2023-11-04] MEDS ORDERED: NALOXONE HCL 0.4 MG/1 ML VIAL/CARP IV PRN (17:48)
[2023-11-04] MEDS ORDERED: METOCLOPRAMIDE HCL INJ 5 MG/ML 2 ML VIAL IV PRN (17:48)
[2023-11-04] MEDS ORDERED: ALUMINUM/MAGNESIUM SUSP 30 ML UDC PO PRN (17:48)
[2023-11-04] MEDS ORDERED: PROMETHAZINE 12.5 MG/50.5 ML BAG IV PRN (17:48)
[2023-11-04] MEDS ORDERED: ACETAMINOPHEN 1,000 MG/100 ML VIAL IV PRN (17:48)
[2023-11-04] MEDS ORDERED: SOD PHOSPHATE/SOD BIPHOSPHATE ENEMA 132 ML BTL PR PRN (17:48)
[2023-11-04] MEDS ORDERED: traMADol HCL 50 MG TABLET PO PRN (17:48)
[2023-11-04] MEDS ORDERED: DO NOT ADMINISTER FLU VACCINE PRN (17:48)
[2023-11-04] MEDS ORDERED: FAMOTIDINE 20 MG TAB PO PRN (17:48)
[2023-11-04] MEDS ORDERED: bisacodyL 10 MG SUPP PR PRN (17:48)
[2023-11-04] MEDS ORDERED: diphenhydrAMINE Capsule 25 MG CAP PO PRN (17:48)
[2023-11-04] MEDS ORDERED: hydrOXYzine HCl 25 MG TAB PO PRN (17:48)
[2023-11-04] MEDS ORDERED: ACETAMINOPHEN 500 MG TAB PO PRN (17:48)
[2023-11-04] MEDS ORDERED: ONDANSETRON 4 MG OD TAB PO PRN (17:48)
[2023-11-04] MEDS ORDERED: MAGNESIUM HYDROXIDE SUSP 30 ML UDC PO PRN (17:48)
[2023-11-04] MEDS ORDERED: LORazepam 0.5 MG in SYRINGE 0.25 ML IV PRN (17:48)
[2023-11-04] MEDS: HYDROmorphone INJ 0.5 MG/0.5 ML SYR IV SCH (18:08)
[2023-11-04] MEDS: KETOROLAC 30 MG/ML VIAL IV SCH (18:14)
[2023-11-04] MEDS: DOCUSATE SODIUM/SENNA 50/8.6MG TAB PO SCH (20:17)
[2023-11-04] MEDS: ceFAZolin 2000MG 2,000 MG/15 ML SYR IV SCH (21:04)
--- NOTE | 2023-11-04 22:26 | Hospitalist Progress Note ---
Date of Service November 04, 2023 Assessment & Plan (1) Back pain: Plan: Acute on chronic back pain without radicular symptoms 58yo male with history of lumbar spinal stenosis s/p L5 laminectomy and fusion L4-[address] [place] [address] Pradhan 1.5 weeks of persistent central lower back pain with radiation to left anterior thigh. acute worsening day of admission. No falls or trauma. frequent severe muscle spasms. MRI LS spine [id number] central canal stenosis at L3-L4. possible add on case this week -Multi-modal pain control with Tylenol 1gm PO TID -Toradol 15mg IV q 6 hours PRN -Solumedrol 40mg IV daily -Flexeril 10mg po TID PRN -Lidoderm patch -Heat -Dilaudid iv PRN -Bowel regimen with Colace and Miralax PRN -Supplemental O2 as needed with continuous pulse oximetry monitoring Patient returned from OR after surgical repair of lumbar stenosis. Patient will be seen again on 11/04 Will recheck hemoglobin. (2) DM2 (diabetes mellitus, type 2): Plan: Patient is on Glipizide-Metformin daily as well as Mounjaro injections weekly. He reports adequate blood sugar control. -Hold home medications -Lantus 12 u BID -ISS - CF=25, CR=12 - Goal blood sugar 110 - 140 (3) Hyperlipidemia: Plan: Chronic. Stable -Continue Simvastatin 20mg po qHS (4) GERD (gastroesophageal reflux disease): Plan: Chronic. Stable -Continue Protonix 40mg PO BID Plan PPx - Lovenox now on hold Code - Full Admission and Anticipated Discharge Date Admission Date: November 03, 2023 Subjective Patient reports feeling well. He has no new complaints. Review of Systems Review of Systems: All systems reviewed & are unremarkable except as noted in HPI & below Physical Exam Constitutional: WD/WN, vitals as above Neck: trachea midline, no thyromegaly Respiratory: normal respiratory effort, lungs clear to auscultation Cardiovascular: RRR, no murmur, no edema Results & Data Results & Data Vital Signs (Past 12 Hours) Vital Signs Temp Pulse Pulse Resp BP BP Pulse Ox 11/04/23 21:02 36.6 C 98 H 16 112/70 95 11/04/23 19:45 36.4 C L 93 H 18 133/76 96 11/04/23 18:45 103 H 16 137/81 94 11/04/23 18:16 36.4 C L 97 H 18 142/86 H 99 11/04/23 17:45 36.4 C L 105 H 16 133/72 97 11/04/23 17:35 102 H 15 112/67 94 11/04/23 17:20 36.2 C L 103 H 14 126/76 93 11/04/23 17:10 106 H 14 126/69 96 11/04/23 17:00 95 H 16 108/81 93 11/04/23 16:50 108 H 16 115/70 93 11/04/23 16:40 121 H 18 116/76 94 11/04/23 16:30 107 H 13 108/78 99 11/04/23 16:22 36.2 C L 113 H 16 158/89 H 99 11/04/23 12:30 36.6 C 84 20 158/105 H 98 11/04/23 12:26 36.4 C L 116 H 20 158/101 H 97 O2 Del Method O2 Flow Rate 11/04/23 21:02 Room Air 11/04/23 19:45 Room Air 11/04/23 18:45 Nasal Cannula 1.5 11/04/23 18:16 Nasal Cannula 2 11/04/23 17:45 Nasal Cannula 2 11/04/23 17:35 Nasal Cannula 2 11/04/23 17:20 Nasal Cannula 2 11/04/23 17:10 Nasal Cannula 2 11/04/23 17:00 Nasal Cannula 2 11/04/23 16:50 Nasal Cannula 2 11/04/23 16:40 Nasal Cannula 2 11/04/23 16:30 Oxymask 4 11/04/23 16:22 Oxymask 6 11/04/23 12:30 Room Air 11/04/23 12:26 Room Air PG Care Time/CCT Total # of Minutes Spent Total Time Spent with Patient: Total time spent is greater than 50% in coordination of care (as documented) at patient's floor/unit and/or counseling patient: Coding Level of Care Code 68368 SUB INP/OBS CARE 2/35MIN Diagnoses Back pain M54.9 DM2 (diabetes mellitus, type 2) E11.9 Hyperlipidemia E78.5 GERD (gastroesophageal reflux disease) K21.9
[2023-11-05] MEDS: HYDROmorphone INJ 1 MG/ML SYRINGE IV PRN (03:04)
[2023-11-05] MEDS: POLYETHYLENE (MIRALAX) 17 GM PACK PO SCH (05:05)
[2023-11-05 06:51] LABS: Basophils # (auto) 0.05 K/uL (0.00-0.20); Basophils % (auto) 0.4 %; Eosinophils # (auto) 0.18 K/uL (0.00-0.50); Eosinophils % (auto) 1.5 %; Hematocrit (blood only) 40.1 % (42.0-52.0); Hemoglobin 13.6 g/dl (14.0-18.0); Immature Granulocytes # (auto) 0.06 K/uL (0.01-0.20); Immature Granulocytes % (auto) 0.5 %; Lymphocytes # (auto) 1.69 K/uL (1.20-3.40); Lymphocytes % (auto) 13.8 %; Mean Corpuscular Hemoglobin 29.7 pg (25.0-34.0); Mean Corpuscular Hgb Conc 33.9 g/dL (32.0-36.0); Mean Corpuscular Volume 87.6 fL (80.0-100.0); Mean Platelet Volume 9.7 fL (9.4-12.4); Monocytes # (auto) 1.06 K/uL (0.11-0.59); Monocytes % (auto) 8.6 %; Neutrophils # (auto) 9.23 K/uL (1.40-6.50); Neutrophils % (auto) 75.2 %; Platelet Count 244 K/uL (130-400); RDW Coefficient of Variation 13.4 % (11.5-14.5); RDW Standard Deviation 42.7 fL (36.4-46.3); Red Blood Count 4.58 M/uL (4.70-6.10); White Blood Count 12.27 K/ul (4.8-10.8)
[2023-11-05 06:55] LABS: BUN Creatinine Ratio 17.3 (10-20); Calcium 8.5 mg/dl (8.6-10.3); Creatinine Clr Calc Pharmacy 102.9 ml/min; Est GFR (African American) 85.3 ml/min; Est GFR (Non-African American) 73.6 ml/min; Potassium 4.2 mmol/L (3.5-5.1)
[2023-11-05] MEDS: TAMSULOSIN HCL 0.4 MG CAP PO SCH (10:04)
[2023-11-05] MEDS: dexAMETHasone 6 MG in SYRINGE 0 ML IV SCH (10:05)
--- NOTE | 2023-11-05 11:43 | Orthopedic Progress Note ---
Date of Service November 05, 2023 Assessment & Plan (1) Lumbar stenosis with neurogenic claudication: Plan: Pavan is postoperative day 1 status post hard removal L4-S1, decompression L3-4 with instrumented fusion L3-S1. Will start physical therapy today. Ambulate ad theresa. DVT prophylaxis is in the form of teds and SCDs. Continue with aggressive bowel regimen. Continue with pain control. Anticipate discharge within the next 48 to 72 hours. Admission and Anticipated Discharge Date Admission Date: November 03, 2023 Subjective Pavan is postoperative day 1 status post hard removal L4-S1, decompression L3-4 with instrumented fusion L3-S1. Leg symptoms improved. Back pain is controlled. OCTAVIANO drain output last shift was 140 cc. H&H this morning are 13.6 and 40.1 respectively. No other complaints. Review of Systems Review of Systems: All systems reviewed & are unremarkable except as noted in HPI & below Physical Exam Physical Exam: He is laying in bed in no acute distress Alert and oriented x 3 Lumbar dressing is clean dry and intact with functioning OCTAVIANO drain Strength intact bilateral lower extremities Teds and SCDs these intact bilateral lower extremities Results & Data Vital Signs (Past 12 Hours) Vital Signs Temp Pulse Resp BP Pulse Ox O2 Del Method 11/05/23 07:23 37.1 C 86 16 151/73 H 95 Room Air 11/05/23 03:10 36.4 C L 96 H 18 119/76 95 Room Air
--- NOTE | 2023-11-05 22:27 | Hospitalist Progress Note ---
Date of Service November 05, 2023 Assessment & Plan (1) Back pain: Plan: Acute on chronic back pain without radicular symptoms 58yo male with history of lumbar spinal stenosis s/p L5 laminectomy and fusion L4-[place] surgery [place] [address] Pradhan 1.5 weeks of persistent central lower back pain with radiation to left anterior thigh. acute worsening day of admission. No falls or trauma. frequent severe muscle spasms. MRI LS spine [id number] central canal stenosis at L3-L4. possible add on case this week -Multi-modal pain control with Tylenol 1gm PO TID -Toradol 15mg IV q 6 hours PRN -Solumedrol 40mg IV daily -Flexeril 10mg po TID PRN -Lidoderm patch -Heat -Dilaudid iv PRN -Bowel regimen with Colace and Miralax PRN -Supplemental O2 as needed with continuous pulse oximetry monitoring Patient returned from OR after surgical repair of lumbar stenosis. Vitals and hemoglobin stable on 11/04 Will recheck hemoglobin. (2) DM2 (diabetes mellitus, type 2): Plan: Patient is on Glipizide-Metformin daily as well as Mounjaro injections weekly. He reports adequate blood sugar control. -Hold home medications -Lantus 12 u BID -ISS - CF=25, CR=12 - Goal blood sugar 110 - 140 (3) Hyperlipidemia: Plan: Chronic. Stable -Continue Simvastatin 20mg po qHS (4) GERD (gastroesophageal reflux disease): Plan: Chronic. Stable -Continue Protonix 40mg PO BID Plan PPx - Lovenox now on hold Code - Full Admission and Anticipated Discharge Date Admission Date: November 03, 2023 Subjective Patient reports no new symptoms. Review of Systems Review of Systems: All systems reviewed & are unremarkable except as noted in HPI & below Physical Exam Constitutional: WD/WN, vitals as above Neck: trachea midline, no thyromegaly Respiratory: normal respiratory effort, lungs clear to auscultation Cardiovascular: RRR, no murmur, no edema Results & Data Results & Data Vital Signs (Past 12 Hours) Vital Signs Temp Pulse Resp BP BP Pulse Ox O2 Del Method 11/05/23 19:31 36.8 C 87 16 142/88 H 95 Room Air 11/05/23 15:19 37.0 C 93 H 16 143/78 H 92 Room Air 11/05/23 11:46 36.5 C 66 16 128/78 91 Room Air PG Care Time/CCT Total # of Minutes Spent Total Time Spent with Patient: Total time spent is greater than 50% in coordination of care (as documented) at patient's floor/unit and/or counseling patient: Coding Level of Care Code 85674 SUB INP/OBS CARE 2/35MIN Diagnoses Back pain M54.9 DM2 (diabetes mellitus, type 2) E11.9 Hyperlipidemia E78.5 GERD (gastroesophageal reflux disease) K21.9
[2023-11-06] MEDS: LORazepam 0.5 MG TAB PO PRN (00:54)
[2023-11-06] MEDS: oxyCODONE HCL IR 5 MG TAB (IMMEDIATE RELEASE) PO PRN (05:16)
--- NOTE | 2023-11-06 08:28 | Orthopedic Progress Note ---
Date of Service November 06, 2023 Assessment & Plan (1) Lumbar stenosis with neurogenic claudication: Plan: Pavan is postoperative day 2 status post hard removal L4-S1, decompression L3-4, instrumented fusion L3-S1. Will continue to work on aggressive bowel regimen today. Continue with pain control. Maintain OCTAVIANO drain and dressing. Continue with ambulation/physical therapy. Anticipate discharge home tomorrow Admission and Anticipated Discharge Date Admission Date: November 03, 2023 Subjective Pavan is postoperative day 2 status post hardware removal L4-S1, decompression L3-4 with instrumented fusion L3-S1. Has some weakness in the left anterior thigh but pain has resolved. Back pain is controlled. He is passing flatus but no bowel movement. OCTAVIANO drain output last shift is 75 cc. Yesterday in physical therapy ambulated 280 feet. Review of Systems Review of Systems: All systems reviewed & are unremarkable except as noted in HPI & below Physical Exam Physical Exam: He sitting up in a chair eating breakfast in no acute distress Alert and oriented x 3 Lumbar dressing is clean dry and intact with functioning OCTAVIANO drain Calf soft and nontender bilaterally strength intact bilateral lower extremities Results & Data Vital Signs (Past 12 Hours) Vital Signs Temp Pulse Resp BP Pulse Ox O2 Del Method 11/06/23 08:11 36.5 C 84 14 160/107 H 98 Room Air
[2023-11-06] MEDS: lisinopril 2.5 MG TAB PO SCH (10:20)
--- NOTE | 2023-11-06 11:05 | Hospitalist Progress Note ---
Date of Service November 06, 2023 Assessment & Plan (1) Back pain: Plan: Acute on chronic back pain without radicular symptoms 58yo male with history of lumbar spinal stenosis s/p L5 laminectomy and fusion L4-5 surgery [place] [address] Pradhan 1.5 weeks of persistent central lower back pain with radiation to left anterior thigh. acute worsening day of admission. No falls or trauma. frequent severe muscle spasms. MRI LS spine [id number] central canal stenosis at L3-L4. s/p L3-L4 decompression fusion 11/[address] Pradhan -Multi-modal pain control with Tylenol 1gm PO TID -Toradol 15mg IV q 6 hours PRN -Solumedrol 40mg IV daily -Flexeril 10mg po TID PRN -Lidoderm patch -Heat -Dilaudid iv PRN -Bowel regimen with Colace and Miralax PRN -Supplemental O2 as needed with continuous pulse oximetry monitoring -labs stable 11/04 (2) DM2 (diabetes mellitus, type 2): Plan: Patient is on Glipizide-Metformin daily as well as Mounjaro injections weekly. He reports adequate blood sugar control. -Hold home medications -Lantus 12 u BID -ISS - CF=25, CR=12 - Goal blood sugar 110 - 140 Plan Chronic conditions: hyperlipidemia: simvastatin GERD: protonix HTN: resumed Lisinopril 11/05 PPx - Lovenox now on hold Code - Full Disposition: anticipate discharge home 11/06. Admission and Anticipated Discharge Date Admission Date: November 03, 2023 Subjective Patient seen and examined this morning. Patient complains of lower back pain near his incision site but denies any additional complaints. He is looking forward to returning home tomorrow. Physical Exam Constitutional: WD/WN, vitals as above Eyes: PERRL, conjunctivae normal, anicteric sclerae Respiratory: normal respiratory effort Skin: no rashes, warm and dry Psychiatric: A+Ox3, euthymic affect Results & Data Results & Data Vital Signs (Past 12 Hours) Vital Signs Temp Pulse Resp BP Pulse Ox O2 Del Method 11/06/23 08:11 36.5 C 84 14 160/107 H 98 Room Air PG Care Time/CCT Total # of Minutes Spent Total Time Spent with Patient: Total time spent is greater than 50% in coordination of care (as documented) at patient's floor/unit and/or counseling patient: Coding Level of Care Code 66851 SUB INP/OBS CARE MIN Diagnoses Back pain M54.9 Back pain location: low back pain Chronicity: unspecified Type 2 diabetes mellitus without complication, without long-term current use of insulin E11.9 Diabetes mellitus buttermaker continuous churn insulin use: without prison use Diabetes mellitus complication status: without complication (1) Back pain Back pain location: low back pain Chronicity: unspecified (2) DM2 (diabetes mellitus, type 2) Diabetes mellitus prison insulin use: without buttermaker continuous churn use Diabetes mellitus complication status: without complication Qualified Code(s): E11.9 - Type 2 diabetes mellitus without complications
[2023-11-07 08:19] VITALS: BP 158/96; PULSE 94; RESP 17; TEMP 97.9; O2SAT 99
--- NOTE | 2023-11-07 08:53 | Discharge Summary ---
Date of Service November 07, 2023 Admission HPI Per Admitting Provider Pavan Pereira is a 58yo male with history of DM, HTN, GERD prior back surgery [place] [address] Pradhan presenting with severe, acute back pain. Patient reports 1.5 weeks of intermittent back pain. Pain is located in the lower lumbar region, midline with radiation into the left lateral and anterior leg. He has frequent associated muscle spasms as well. Patient was not feeling well today. He came home from work and laid down. When he woke up he had very severe back pain with radiation to the left thigh, frequent severe muscle spasms. Pain is made worse with movement and certain positions. Patient otherwise denies fever, chills, no falls or trauma, no lifting/bending/twisting that precipitated the pain. No complaints with bowel or bladder although he has been having difficulty having bowel movements due to pain in the back. Patient does have an appointment with Dr. Pradhan scheduled for 11/07/23 In the ER patient is in severe pain. Otherwise, HD stable. He did become somewhat hypoxic with saturations of 83-84% on room air with sleeping. Patient reports no relief with the therapies administered below. Ongoing severe pain. ER Course: Toradol 15mg IV Tylenol 1gm IV Diazepam 5mg IV Cyclobenzaprine 10mg PO Dilaudid 0.5mg IV Principal Diagnosis Lumbar spinal stenosis with radiculopathy Discharge Data Allergies Allergy/AdvReac Type Severity Reaction Status Date / Time No Known Allergies Allergy Verified 09/19/21 00:03 Consultations 11/02/23 00:28 ED Decision to Admit Stat 11/02/23 01:09 Consult Orthopedic Spine Surgery Routine 11/03/23 07:33 Consult Anesthesiology Routine Procedures Performed Operation Date: 11/04/23 09:40 Actual Procedures p L3-L4 Decompression Fusion(Not Applicable) - Galen Pradhan DO s L4-S1 Hardware Removal, (Not Applicable) - Galen Pradhan DO Ordered Studies 11/01/23 21:27 CT Abd and Pelvis [CT abd pelvis IV con only] Stat CT lumbar spine w con Stat 11/02/23 09:52 MR lumbar spine wo con Urgent 11/04/23 [place] lumbar spine 2-3V Routine Hospital Course (1) Lumbar stenosis with neurogenic claudication: Patient was admitted with severe back pain with radiculopathy unable to ambulate underwent urgent decompression fusion tolerated as well as taken to orthopedic for postoperative. Postop he progressed appropriately. Marked improvement of his pain and strength. OCTAVIANO drain decreasing appropriately. Extra strength testing. Pain well-controlled. Subsidy discharged home. Discharge orders instructions from the chart for further review. Total Time Total Time Spent Total Time Spent (In Minutes): 20 minutes Discharge Plan Discharge Items Patient Disposition: Home - Self-Care Reason For Visit: ACUTE BACK PAIN Discharge Diagnosis: Lumbar spinal stenosis with radiculopathy Activity: As commented below Lifting: No more than 5 pounds Bathing Comment: may shower 11/06 Exercise/Sports: None Non-emergency contact: Primary Care Provider Call non-emergency contact if: you have any medication questions Follow-up/Referrals: Karly Oliveros DO [Primary Care Provider] - Diet: Regular Addtl Attending Provider Instructions: ACTIVITY RECOMMENDATIONS: SELF CARE INSTRUCTIONS AFTER THORACIC/LUMBAR FUSIONS 1. You may walk to your tolerance. It is good exercise for your legs and back. Expect some back and intermittent leg aches and pains. 2. You may perform "counter-top" level activities (make a sandwich, kristina with a project, etc.). 3. No bending or lifting of more than 10 pounds or back twisting of any nature (roll like a log when turning in bed). 4. You may ride in a car for 20-30 minutes at a time. No driving until after your first visit with your doctor. 5. Frequent changes of position and restricting sitting to 30 minutes at a time will help limit the amount of back spasms and stiffness you may experience. 6. You may discontinue the use of ambulatory aids (cane, crutches, etc.) once your strength and confidence allow. 7. You may sustain engineer the shower and let water strike your incision when you arrive home at least once daily. Do not take a tub bath, sit in a hot tub or go into a swimming pool until after your first recheck in the office. SPECIAL CARE INSTRUCTIONS: VERY IMPORTANT TO READ AND REVIEW A. Your surgical incision has been closed with a cosmetic suture under the skin that will dissolve in about 6 weeks. In 14 days, you can use a pair of clean scissors and cut the suture that is left outside of the skin at the ends of your incision. 1. The small skin tapes can be removed 7 days after surgery if they have not fallen off by that point. 2. You may keep the wound open to air as much as possible to promote healing after post-op day number 5 unless told otherwise by your doctor. 3. If you think the wound looks like it is becoming infected (redness or worsening drainage) and/or you are experiencing fever, chill or worsening back pain and muscle spasms, contact the office so that we may evaluate you as soon as possible. B. Complications are uncommon, but please contact us if you have any signs or symptoms of: 1. wound infection (fever higher than 102.5 degrees F, redness, separation of wound, drainage, or increasing pain from the incision) 2. blood clots in legs (pain, swelling, redness and warmth in legs) 3. urinary tract infection (fever higher than 102.5 degrees F, burning upon urination or increased frequency of urination) 4. nerve problems (inability to walk on your toes or heels, numbness, loss of bowel or bladder control) 5. any other symptoms that concern you C. Please call the office at if you have any concerns or questions about your operation or recovery. D. No smoking! Smoking drastically decreases the chance of a solid fusion. E. Do not take any anti-inflammatory medications (Indocin, Advil, Motrin, Aspirin, Naprosyn, etc.) as these may inhibit the chance of a solid fusion. Tylenol is okay to take for pain. MANAGING PAIN AFTER SPINAL SURGERY 1. Narcotic medication is intended for short-term use and will be provided for surgical pain. Surgical pain usually lasts for a period of 4-6 weeks. Narcotic medication includes Percocet, Vicodin, Darvocet, Tylenol #3 or Lortab. 2. Longer-term pain is more appropriately treated with non-narcotic medication such as Tylenol ES. 3. Muscle spasm is not appropriately treated with narcotics. Muscle relaxers such as Soma, Flexeril or Skelaxin can be used along with Tylenol ES. 4. Remember that we all live with some "aches and pains". This is not unusual or uncommon after an injury or as we get older. a. Back pain is expected and may include muscle spasms for 4 to 6 weeks after surgery. The pain should gradually improve. If the pain worsens for no apparent reason, please contact the office. b. Intermittent leg pain may also be experienced and should not be concerned about unless it worsens for no apparent reason. If so, please contact the office. 5. We will provide appropriate medication within the normal guidelines of their prescribed use. We will also be very cautious and aware of potential abuse and extended duration of patients' medication needs. a. Pain medications are for your comfort and to assist with sleep and rest so that the tissue can heal. They are not provided in order to return to normal activity and should not be used through the day. To do so or worsening pain at night can result from ongoing tissue damage and development of tolerance to the prescribed medicine. 6. Please allow 2-3 days to process refills. Prescriptions will not be mailed but must be picked up at the office. FOLLOW UP VISIT: Keep your scheduled follow-up appointment. Any questions, please call the office at . Pending Studies at Discharge: No Stand-Alone Forms: My [facility] [place], Smoking Cessation Medications and DC Order Prescriptions: New tramadol 50 mg tablet 50 mg PO Q6H PRN (Reason: pain, moderate) Qty: 30 0RF oxycodone 5 mg tablet 5 mg PO Q6H PRN (Reason: pain) Qty: 30 0RF Continued tamsulosin [Flomax] 0.4 mg capsule 0.4 mg PO DAILY Qty: 10 0RF oxybutynin chloride 5 mg tablet 5 mg PO BID PRN (Reason: bladder spasms) Qty: 20 0RF pantoprazole 40 mg tablet,delayed release (DR/EC) 40 mg PO DAILY simvastatin 20 mg tablet 20 mg PO HS doxazosin 4 mg tablet 4 mg PO DAILY Patient Comments: patient unsure of strength. found 4mg in external med history. ondansetron 4 mg tablet,disintegrating 4 mg PO Q6H PRN (Reason: nausea and vomiting) Qty: 15 0RF oxycodone 5 mg tablet 5 mg PO Q4H PRN (Reason: pain) Qty: 15 0RF Rx Instructions: Initial Treatment lisinopril 2.5 mg tablet 2.5 mg PO DAILY oxycodone 5 mg tablet 10 mg PO Q6H PRN (Reason: pain) Qty: 14 0RF Rx Instructions: Initial Treatment Eliquis 5 mg (74 tabs) tablets,dose pack 5 mg PO BID Qty: 74 0RF glipizide-metformin 2.5-500 mg tablet 2.5 - 500 tab PO DAILY Discharge Orders: Discharge Order (Routine); Ordered 11/07/23 Ordered By: Galen Pradhan Admission Data Admit Date/Time: 11/03/23 15:54 Attending Provider: Martha Rashid Admit Provider: Hermelinda Ross Primary Care Provider: Karly Oliveros Other Providers: Hermelinda Ross; Galen Pradhan; Dick Kiser
== END 2023-11-07 13:39 | disposition home or self-care (01) | DRG 455 ==
LOC: ED 20:09 → 3W 20:09 → SUATTDRO 23:50 → 3W 11-02 00:49 → SUATTDRO 11-03 15:54 → 3W 11-04 19:39

== ENCOUNTER 2024-12-20 02:59 | Inpatient (IN) ==
--- NOTE | 2024-12-20 03:18 | Emergency Department Note ---
History of Present Illness General Chief complaint: Flank Pain Stated complaint: KIDNEY STONE? Time Seen by Provider: 12/20/24 03:07 History of Present Illness Maximum Pain Intensity: 8 This 59-year-old male that was seen the other day and diagnosed with a kidney stone presents ER complaining of worsening pain unable to tolerate the pain at home. He tried the oxycodone. Pain got much worse and he came here. Patient denies chest pain, dyspnea, fevers, vomiting, dysuria. He has had lithotripsy and stent placement in the past. Home Medications Medication Instructions Recorded Confirmed Type doxazosin 4 mg tablet 4 mg PO DAILY 07/26/18 11/02/23 History pantoprazole 40 mg tablet,delayed 40 mg PO DAILY 07/26/18 11/02/23 History release simvastatin 20 mg tablet 20 mg PO HS 07/26/18 11/02/23 History ondansetron 4 mg disintegrating 4 mg PO Q6H PRN nausea and 09/16/21 09/22/21 Rx tablet vomiting #15 tabs oxycodone 5 mg tablet 5 mg PO Q4H PRN pain #15 tabs 09/16/21 09/22/21 Rx lisinopril 2.5 mg tablet 2.5 mg PO DAILY 09/19/21 09/22/21 History oxycodone 5 mg tablet 10 mg (2 x 5 mg) PO Q6H PRN pain 09/19/21 09/22/21 Rx #14 tabs apixaban 5 mg (74 tabs) tablets in 5 mg PO BID #74 ea 09/20/21 09/22/21 Rx a dose pack (Eliquis) glipizide 2.5 mg-metformin 500 mg 2.5 - 500 tab PO DAILY Diabetes 09/22/21 11/02/23 History tablet oxybutynin chloride 5 mg tablet 5 mg PO BID PRN bladder spasms #20 09/25/21 Rx tabs tamsulosin 0.4 mg capsule (Flomax) 0.4 mg PO DAILY #10 caps 09/25/21 Rx oxycodone 5 mg tablet 5 mg PO Q6H PRN pain #30 tabs 11/05/23 Rx tramadol 50 mg tablet 50 mg PO Q6H PRN pain, moderate 11/05/23 Rx #30 tabs tamsulosin 0.4 mg capsule (Flomax) 0.4 mg PO DAILY #14 caps 12/16/24 Rx Allergies Allergy/AdvReac Type Severity Reaction Status Date / Time morphine Allergy Itching Verified 10/08/24 23:43 Past Med/Surg History Problem List (Updated 12/20/24 @ 04:41 by Jayne Baker PA-C) Acute UTI (Acute) Hydronephrosis (Acute) Ureterolithiasis (Acute) Back pain (Acute) Hypertension JAMES (acute kidney injury) Lumbar stenosis with neurogenic claudication (Acute) Medical History Obesity Spinal stenosis of lumbar region with radiculopathy GERD (gastroesophageal reflux disease) BPH (benign prostatic hyperplasia) DM2 (diabetes mellitus, type 2) Hyperlipidemia DVT (deep venous thrombosis) Kidney stones Surgical History History of back surgery Family History Other Family history non-contributory Social History Smoking Status: Never smoker Tobacco Type: Cigarettes Hx Alcohol Use: Yes Alcohol type: wine Hx Substance Use: No Preferred Language: Kyrgyz Communication Ability: Effective Padder Cushion Required: No Beliefs That Will Affect Care: None marital status: Current Living Situation: Spouse current occupational status: employed Feels Safe at Home: Yes Assistive Devices: Walker Review of Systems A total of 10 systems reviewed and were otherwise negative Physical Exam Vital Signs Vital Signs - 24 hr 12/20/24 03:03 12/20/24 04:40 Temperature 37.1 C Temperature Source Temporal Artery Scan Pulse Rate 94 H 69 Pulse Rhythm Regular Pulse Strength Normal Respiratory Rate 20 19 Respiratory Effort / Characteristics Non-Labored Spontaneous Respiratory Depth Normal Respiratory Pattern Regular Blood Pressure 149/85 H 151/92 H Blood Pressure Mean 106 Blood Pressure Position Sitting Pulse Oximetry 100 95 Oxygen Delivery Method Room Air Room Air Sepsis Recent Fever Within 48 Hours No Sepsis New/Unexplained Change in Mental Status N/A Sepsis Action Taken by Nursing No Action Required VITALS: Vitals are noted on the nurse's note and reviewed by myself. Vital signs stable. GENERAL: Pleasant patient who appears in pain, in no acute distress, nondiaphoretic, well-developed well-nourished. SKIN: Capillary reflex less than 2 seconds. HEENT: Normocephalic. PERRLA. EOMI. Nares patent. Mucous membranes moist. Neck is supple without nuchal rigidity. HEART: Regular rate and rhythm LUNGS: Clear to auscultation bilaterally without wheezes, rales or rhonchi. No retractions or accessory muscle use. ABDOMEN: Positive bowel sounds x 4. Normal tympanic percussion. Soft, nontender, without masses or organomegaly. Storey sign negative. No guarding or rebound tenderness. no CVA tenderness MUSCULOSKELETAL: No gross musculoskeletal defects. NEURO: Patient was alert and oriented to person place and time. No focal neurological deficits. Course Administered Medications Discontinued Medications Sodium Chloride (Nss) 500 mls @ 999 mls/hr IV .Q31M STA Stop: 12/20/24 03:44 Last Infusion: 12/20/24 04:17 Dose: Infused Documented By: Admin: 12/20/24 03:27 Dose: 999 mls/hr Documented By: HERIBERTO Ceftriaxone Sodium (Rocephin) 2,000 mg in 50 mls @ 100 mls/hr IV NOW STA Stop: 12/20/24 04:39 Last Admin: 12/20/24 04:31 Dose: 100 mls/hr Documented By: HERIBERTO Ketorolac Tromethamine (Ketorolac Tromethamine 15 Mg/Ml Vial) 10 mg IV NOW STA Stop: 12/20/24 03:15 Last Admin: 12/20/24 03:26 Dose: 10 mg Documented By: HERIBERTO Ondansetron HCl (Ondansetron Inj 2 Mg/Ml 2 Ml Vial) 4 mg IV NOW STA Stop: 12/20/24 03:15 Last Admin: 12/20/24 03:26 Dose: 4 mg Documented By: HERIBERTO Tamsulosin HCl (Tamsulosin Hcl 0.4 Mg Cap) 0.4 mg PO NOW ONE Stop: 12/20/24 03:15 Last Admin: 12/20/24 03:26 Dose: 0.4 mg Documented By: HERIBERTO Medical Decision Making Medical Records Attestation: I reviewed the patient's medical records. Home Medications Current Medication List: was personally reviewed by me Laboratory Data Attestation: I reviewed the patient's lab results. 12/20/24 03:15 12/20/24 03:15 Lab Results 12/20/24 12/20/24 Range/Units 03:10 03:15 WBC 9.71 (4.8-10.8) K/ul RBC 4.69 L (4.70-6.10) M/uL Hgb 14.0 (14.0-18.0) g/dl Hct 40.7 L (42.0-52.0) % MCV 86.8 (80.0-100.0) fL MCH 29.9 (25.0-34.0) pg MCHC 34.4 (32.0-36.0) g/dL RDW Std Deviation 40.2 (36.4-46.3) fL RDW Coeff of Kirk 12.8 (11.5-14.5) % Plt Count 272 (130-400) K/uL MPV 8.9 L (9.4-12.4) fL Immature Gran % (Auto) 0.3 % Neut % (Auto) 70.0 % Lymph % (Auto) 17.6 % [place] % (Auto) 7.7 % Eos % (Auto) 3.7 % Baso % (Auto) 0.7 % Neut # (Auto) 6.79 H (1.40-6.50) K/uL Lymph # (Auto) 1.71 (1.20-3.40) K/uL [place] # (Auto) 0.75 H (0.11-0.59) K/uL Eos # (Auto) 0.36 (0.00-0.50) K/uL Baso # (Auto) 0.07 (0.00-0.20) K/uL Immature Gran # (Auto) 0.03 (0.01-0.20) K/uL Sodium 140 (136-145) mmol/L Potassium 3.9 (3.5-5.1) mmol/L Chloride 105 (98-107) mmol/L Carbon Dioxide 30 (21-32) mmol/L Anion Gap 5 (3-11) BUN 18 (6-23) mg/dl Creatinine 1.31 (0.6-1.4) mg/dl Est Cr Clr Drug Dosing 78.6 ml/min eGFR 62.70 BUN/Creatinine Ratio 13.7 (10-20) Glucose 99 (70-99(Fasting)) mg/dl Calcium 9.3 (8.6-10.3) mg/dl Total Bilirubin 0.7 (0.2-1.0) mg/dl AST 18 (13-39) U/L ALT 12 (7-52) U/L Alkaline Phosphatase 55 (34-104) U/L Total Protein 6.9 (6.0-8.3) gm/dl Albumin 4.2 (3.4-5.0) gm/dl Globulin 2.7 (2.5-4.0) gm/dl Albumin/Globulin Ratio 1.6 (0.9-2) Urine Color Yellow Urine Appearance Turbid A (Clear) Urine pH 5.5 (4.5-7.5) Ur Specific [place] 1.022 (1.000-1.030) Urine Protein Trace H (Negative) Urine Glucose (UA) Negative (Negative) Urine Ketones Trace H (Negative) Urine Blood 3+ H (Negative) Urine Nitrite Negative (Negative) Urine Bilirubin Negative (Negative) Urine Urobilinogen Negative (Negative) Ur Leukocyte Esterase 3+ H (Negative) Urine WBC (Auto) >50 H (0-5) /hpf Urine RBC (Auto) 11-20 H (0-2) /hpf U Hyaline Cast (Auto) 11-20 H (0-2) /lpf U Epithel Cells (Auto) 0-2 (0-2) /hpf Urine Bacteria (Auto) 1+ H (None Seen) Urine Comment Imaging Data Attestation: I personally reviewed and interpreted this imaging study as follows: MDM Narrative Prior records/ancillary studies reviewed. Triage Nursing notes reviewed. Additional history obtained from nursing The patient's history was concerning for flank pain. Differential diagnosis: Etiologies such as renal colic, appendicitis, diverticulitis, mesenteric ischemia, aortic pathology, infections, inflammatory bowel disease, PUD, biliary pathology, UTI, as well as others were entertained. Physical examination findings: As above. ER treatment provided: Toradol, Flomax, fentanyl and Zofran ordered. IV fluids as ordered Rocephin was ordered for UTI On reassessment the patient felt better. Diagnostic interpretation by me: The labs Independently Interpreted by myself revealed no worrisome leukocytosis. Urinalysis revealed concerns for UTI and patient was given Rocephin. Imaging studies: Prior imaging was reviewed Ultrasound was reviewed Consultation: A consultation was placed with the hospitalist. The case was discussed and diagnostics were reviewed. The patient was evaluated in the ER for further treatment. It appears that the patient has isolated renal colic from a left sided stone with a UTI. Patient started on Rocephin. Pain got much worse and patient could not tolerate the discomfort despite the oxycodone at home. Medicine was consulted and case discussed. He will be evaluated for admission. Patient is agreeable. By the evaluation outlined above emergent etiologies such as appendicitis, diverticulitis, mesenteric ischemia, aortic pathology, inflammatory bowel disease, PUD, biliary pathology, as well as others were deemed relatively unlikely. The pt informed about the findings as listed above. All questions were answered and pleased with the treatment. The chart was completed utilizing [employer] Speech voice recognition software. Grammatical errors, random word insertions, pronoun errors, and incomplete sentences are an occassional consequence of this system due to software limitations, ambient noise, and hardware issues. Any formal questions or concerns about the content, text, or information contained within the body of this dictation should be directly addressed to the physician administrative support assistant for clarification. Impression & Plan Ureterolithiasis, Hydronephrosis, Acute UTI Discharge Plan Visit Data Chief Complaint: Flank Pain Stated Complaint: KIDNEY STONE? ED Provider: Gloria Reeves ED Midlevel Provider: Jayne Baker Discharge Problem: Ureterolithiasis, Hydronephrosis, Acute UTI Patient Disposition: Admitted As Inpatient Condition: Good Forms Stand Alone Forms: [facility] Revision3 Prescriptions Prescriptions: No Action tamsulosin [Flomax] 0.4 mg capsule 0.4 mg PO DAILY Qty: 10 0RF oxybutynin chloride 5 mg tablet 5 mg PO BID PRN (Reason: bladder spasms) Qty: 20 0RF pantoprazole 40 mg tablet,delayed release (DR/EC) 40 mg PO DAILY simvastatin 20 mg tablet 20 mg PO HS doxazosin 4 mg tablet 4 mg PO DAILY Patient Comments: patient unsure of strength. found 4mg in external med history. ondansetron 4 mg tablet,disintegrating 4 mg PO Q6H PRN (Reason: nausea and vomiting) Qty: 15 0RF oxycodone 5 mg tablet 5 mg PO Q4H PRN (Reason: pain) Qty: 15 0RF Rx Instructions: Initial Treatment lisinopril 2.5 mg tablet 2.5 mg PO DAILY oxycodone 5 mg tablet 10 mg PO Q6H PRN (Reason: pain) Qty: 14 0RF Rx Instructions: Initial Treatment Eliquis 5 mg (74 tabs) tablets,dose pack 5 mg PO BID Qty: 74 0RF glipizide-metformin 2.5-500 mg tablet 2.5 - 500 tab PO DAILY tramadol 50 mg tablet 50 mg PO Q6H PRN (Reason: pain, moderate) Qty: 30 0RF oxycodone 5 mg tablet 5 mg PO Q6H PRN (Reason: pain) Qty: 30 0RF tamsulosin [Flomax] 0.4 mg capsule 0.4 mg PO DAILY Qty: 14 0RF Referrals Referrals: Karly Oliveros DO [Primary Care Provider] -
[2024-12-20] MEDS: TAMSULOSIN HCL 0.4 MG CAP PO ONE (03:26)
[2024-12-20] MEDS: ONDANSETRON INJ 2 MG/ML 2 ML VIAL IV STA (03:26)
[2024-12-20] MEDS: KETOROLAC TROMETHAMINE 15 MG/ML VIAL IV STA (03:26)
[2024-12-20] MEDS: SODIUM CHLORIDE 0.9% 500 ML IV STA (03:27)
[2024-12-20 03:33] LABS: Hematocrit (blood only) 40.7 % (42.0-52.0); Hemoglobin 14.0 g/dl (14.0-18.0); Immature Granulocytes # (auto) 0.03 K/uL (0.01-0.20); Immature Granulocytes % (auto) 0.3 %; Mean Corpuscular Hemoglobin 29.9 pg (25.0-34.0); Mean Corpuscular Volume 86.8 fL (80.0-100.0); Platelet Count 272 K/uL (130-400); RDW Standard Deviation 40.2 fL (36.4-46.3); Red Blood Count 4.69 M/uL (4.70-6.10); White Blood Count 9.71 K/ul (4.8-10.8)
[2024-12-20 03:50] LABS: Alanine Aminotransferase 12.0 U/L (7-52); Albumin Globulin Ratio 1.6 (0.9-2); Albumin Level 4.2 gm/dl (3.4-5.0); Alkaline Phosphatase 55.0 U/L (34-104); Anion Gap 5.0 (3-11); Bilirubin,Total 0.7 mg/dl (0.2-1.0); Blood Urea Nitrogen 18.0 mg/dl (6-23); Calcium 9.3 mg/dl (8.6-10.3); Carbon Dioxide 30.0 mmol/L (21-32); Chloride 105.0 mmol/L (98-107); Creatinine Clr Calc Pharmacy 78.6 ml/min; Globulin 2.7 gm/dl (2.5-4.0); Glucose 99.0 mg/dl (70-99(Fasting)); Potassium 3.9 mmol/L (3.5-5.1); Sodium 140.0 mmol/L (136-145); Total Protein 6.9 gm/dl (6.0-8.3)
--- NOTE | 2024-12-20 03:55 | History & Physical Report ---
Date of Service December 20, 2024 Assessment & Plan (1) Kidney stones: (2) DM2 (diabetes mellitus, type 2): (3) Hyperlipidemia: (4) DVT (deep venous thrombosis): (5) GERD (gastroesophageal reflux disease): Plan 59yo male with ongoing left flank pain, known 5mm stone from CT obtained 12/16. No fever, leukocytosis. UA does have bacteria #Kidney stone - ongoing left flank pain despite home treatment with Oxycodone. Patient with chills, nausea. -Admit to medical -Renal Ultrasound Pending (CT results posted above are from initial CT 12/16) -Strain urine -Keep NPO -LR at 125mL/hr -FLomax 0.4mg po daily -Ceftriaxone 2gm IV daily -Pain control with Tylenol, Oxycodone and Dilaudid -Urology consultation appreciated #Diabetes -Hold oral agents -ISS -Patient NPO for now #Hyperlipidemia -Continue Simvastatin #History of DVT -Hold Eliquis for possible urologic intervention #GERD -Continue Protonix History of Present Illness Chief Complaint: left flank pain Primary Care Provider: DO Seth Whelan Randall is a pleasant 59-year-old male with history of obesity, GERD, diabetes, hyperlipidemia and BPH as well as prior renal stones presenting with left-sided flank pain. Patient with history of recurrent kidney stones. Presented to the ER initially on 12/16/2024 with left-sided flank pain. Had a CT of the abdomen which confirmed a 5 mm calculus in the proximal left ureter. Patient has been taking oxycodone 5 mg every 4 hours at home as well as Tylenol with no relief. Today during the day his pain felt improved however, around 20: 00 it came on quite severely. He reports having some difficulty urinating today as well. he had some chills and nausea otherwise denies fever, chest pain, cough, shortness of breath, abdominal pain In the ER he is afebrile, hypertensive otherwise stable ER course: Normal saline 500 Flomax 0.4 mg Toradol 10 mg IV Zofran 4 mg IV Allergies Allergy/AdvReac Type Severity Reaction Status Date / Time morphine Allergy Itching Verified 10/08/24 23:43 Home Medications Medication Instructions Recorded Confirmed Type doxazosin 4 mg tablet 4 mg PO DAILY 07/26/18 11/02/23 History pantoprazole 40 mg tablet,delayed 40 mg PO DAILY 07/26/18 11/02/23 History release simvastatin 20 mg tablet 20 mg PO HS 07/26/18 11/02/23 History ondansetron 4 mg disintegrating 4 mg PO Q6H PRN nausea and 09/16/21 09/22/21 Rx tablet vomiting #15 tabs oxycodone 5 mg tablet 5 mg PO Q4H PRN pain #15 tabs 09/16/21 09/22/21 Rx lisinopril 2.5 mg tablet 2.5 mg PO DAILY 09/19/21 09/22/21 History oxycodone 5 mg tablet 10 mg (2 x 5 mg) PO Q6H PRN pain 09/19/21 09/22/21 Rx #14 tabs apixaban 5 mg (74 tabs) tablets in 5 mg PO BID #74 ea 09/20/21 09/22/21 Rx a dose pack (Eliquis) glipizide 2.5 mg-metformin 500 mg 2.5 - 500 tab PO DAILY Diabetes 09/22/21 11/02/23 History tablet oxybutynin chloride 5 mg tablet 5 mg PO BID PRN bladder spasms #20 09/25/21 Rx tabs tamsulosin 0.4 mg capsule (Flomax) 0.4 mg PO DAILY #10 caps 09/25/21 Rx oxycodone 5 mg tablet 5 mg PO Q6H PRN pain #30 tabs 11/05/23 Rx tramadol 50 mg tablet 50 mg PO Q6H PRN pain, moderate 11/05/23 Rx #30 tabs tamsulosin 0.4 mg capsule (Flomax) 0.4 mg PO DAILY #14 caps 12/16/24 Rx Past Med/Surg History Problem List Hydronephrosis (Acute) Ureterolithiasis (Acute) Back pain (Acute) Hypertension JAMES (acute kidney injury) Lumbar stenosis with neurogenic claudication (Acute) Medical History Obesity Spinal stenosis of lumbar region with radiculopathy GERD (gastroesophageal reflux disease) BPH (benign prostatic hyperplasia) DM2 (diabetes mellitus, type 2) Hyperlipidemia DVT (deep venous thrombosis) Kidney stones Surgical History History of back surgery Family History Other Family history non-contributory Social History Smoking Status: Never smoker Tobacco Type: Cigarettes Hx Alcohol Use: Yes Alcohol type: wine Hx Substance Use: No Preferred Language: Yi Communication Ability: Effective [employer] Required: No Beliefs That Will Affect Care: None marital status: Current Living Situation: Spouse current occupational status: employed Feels Safe at Home: Yes Assistive Devices: Walker Review of Systems Review of Systems: All systems reviewed & are unremarkable except as noted in HPI & below Physical Exam Physical Exam: General: patient resting comfortably, NAD, non-toxic in appearance, AA&O x 4 Skin: warm, dry, intact, no rashes or lesions HEENT: NC/AT, PERRL, EOMI, anicteric sclera, conjunctiva without injection, external ear normal to inspection and nontender, nares patent, moist mucus membranes, dentition intact, no oropharyngeal lesions, neck supple, trachea midline, no LAD, no thyromegaly, no JVD Heart: +S1/S2, regular, no m/r/g Lungs: equal air entry bilaterally, no rales/rhonchi/wheezes Abd: +BS, soft, NT/ND, no masses/organomegaly/ascites Ext: warm, 2+ pulses in UE/LE bilaterally, no clubbing/cyanosis or edema Neuro: nonfocal, patient AA&O x 4, speech intact, no facial droop, moving all extremities on command with equal strength 5/5 Results & Data Results & Data Vital Signs (Past 12 Hours) Vital Signs Temp Pulse Resp BP Pulse Ox O2 Del Method 12/20/24 03:03 37.1 C 94 H 20 149/85 H 100 Room Air Laboratory Results Laboratory Results WBC 9.71 K/ul (4.8-10.8) 12/20/24 03:15 RBC 4.69 M/uL (4.70-6.10) L 12/20/24 03:15 Hgb 14.0 g/dl (14.0-18.0) 12/20/24 03:15 Hct 40.7 % (42.0-52.0) L 12/20/24 03:15 MCV 86.8 fL (80.0-100.0) 12/20/24 03:15 MCH 29.9 pg (25.0-34.0) 12/20/24 03:15 MCHC 34.4 g/dL (32.0-36.0) 12/20/24 03:15 RDW Std Deviation 40.2 fL (36.4-46.3) 12/20/24 03:15 RDW Coeff of Kirk 12.8 % (11.5-14.5) 12/20/24 03:15 Plt Count 272 K/uL (130-400) 12/20/24 03:15 MPV 8.9 fL (9.4-12.4) L 12/20/24 03:15 Immature Gran % (Auto) 0.3 % 12/20/24 03:15 Neut % (Auto) 70.0 % 12/20/24 03:15 Lymph % (Auto) 17.6 % 12/20/24 03:15 [place] % (Auto) 7.7 % 12/20/24 03:15 Eos % (Auto) 3.7 % 12/20/24 03:15 Baso % (Auto) 0.7 % 12/20/24 03:15 Neut # (Auto) 6.79 K/uL (1.40-6.50) H 12/20/24 03:15 Lymph # (Auto) 1.71 K/uL (1.20-3.40) 12/20/24 03:15 [place] # (Auto) 0.75 K/uL (0.11-0.59) H 12/20/24 03:15 Eos # (Auto) 0.36 K/uL (0.00-0.50) 12/20/24 03:15 Baso # (Auto) 0.07 K/uL (0.00-0.20) 12/20/24 03:15 Immature Gran # (Auto) 0.03 K/uL (0.01-0.20) 12/20/24 03:15 Sodium 140 mmol/L (136-145) 12/20/24 03:15 Potassium 3.9 mmol/L (3.5-5.1) 12/20/24 03:15 Chloride 105 mmol/L (98-107) 12/20/24 03:15 Carbon Dioxide 30 mmol/L (21-32) 12/20/24 03:15 Anion Gap 5 (3-11) 12/20/24 03:15 BUN 18 mg/dl (6-23) 12/20/24 03:15 Creatinine 1.31 mg/dl (0.6-1.4) 12/20/24 03:15 Est Cr Clr Drug Dosing 78.6 ml/min 12/20/24 03:15 eGFR 62.70 12/20/24 03:15 BUN/Creatinine Ratio 13.7 (10-20) 12/20/24 03:15 Glucose 99 mg/dl (70-99(Fasting)) 12/20/24 03:15 Calcium 9.3 mg/dl (8.6-10.3) 12/20/24 03:15 Total Bilirubin 0.7 mg/dl (0.2-1.0) 12/20/24 03:15 AST 18 U/L (13-39) 12/20/24 03:15 ALT 12 U/L (7-52) 12/20/24 03:15 Alkaline Phosphatase 55 U/L (34-104) 12/20/24 03:15 Total Protein 6.9 gm/dl (6.0-8.3) 12/20/24 03:15 Albumin 4.2 gm/dl (3.4-5.0) 12/20/24 03:15 Globulin 2.7 gm/dl (2.5-4.0) 12/20/24 03:15 Albumin/Globulin Ratio 1.6 (0.9-2) 12/20/24 03:15 Urine Color Yellow 12/20/24 03:10 Urine Appearance Turbid (Clear) A 12/20/24 03:10 Urine pH 5.5 (4.5-7.5) 12/20/24 03:10 Ur Specific [place] 1.022 (1.000-1.030) 12/20/24 03:10 Urine Protein Trace (Negative) H 12/20/24 03:10 Urine Glucose (UA) Negative (Negative) 12/20/24 03:10 Urine Ketones Trace (Negative) H 12/20/24 03:10 Urine Blood 3+ (Negative) H 12/20/24 03:10 Urine Nitrite Negative (Negative) 12/20/24 03:10 Urine Bilirubin Negative (Negative) 12/20/24 03:10 Urine Urobilinogen Negative (Negative) 12/20/24 03:10 Ur Leukocyte Esterase 3+ (Negative) H 12/20/24 03:10 Urine WBC (Auto) >50 /hpf (0-5) H 12/20/24 03:10 Urine RBC (Auto) 11-20 /hpf (0-2) H 12/20/24 03:10 U Hyaline Cast (Auto) 11-20 /lpf (0-2) H 12/20/24 03:10 U Epithel Cells (Auto) 0-2 /hpf (0-2) 12/20/24 03:10 Urine Bacteria (Auto) 1+ (None Seen) H 12/20/24 03:10 Urine Comment 12/20/24 03:10 Diagnostic Findings [place], [place] [phone] CT Scan Report Patient: SETH CASTRO Admit Date: 12/16/24 MR#: [id number] Address1: [address] [place] [address] Acct ID:[id number] Address2: Date: 1965 [facility] Zip: [place] [address] Age: 59 Location: ED Sex: M Room/Bed: Att Phy: Diagnosis: KIDNEY STONES [place] Phy: Karly Oliveros D.O. Service Date: 12/16/24 [facility] Phy: Interpreting Phy: Seth Carey MDAit Phy: Ordering Phy: Maurice Levin DO cc: ~ ABDOMEN AND PELVIS CT WITHOUT CONTRAST CT DOSE: 1475.25 mGy.cm HISTORY: eval for L nephrolithiasis TECHNIQUE: Multiaxial CT images of the abdomen and pelvis were performed without contrast. A dose lowering technique was utilized adhering to the principles of ALARA. COMPARISON STUDY: 10/11/2024 FINDINGS: There are coronary artery calcifications. ABDOMEN: Liver, gallbladder, spleen, pancreas, and adrenal glands have an unremarkable noncontrast appearance. There are multiple tiny bilateral renal calculi. There is no hydronephrosis on the right. There is mild hydronephrosis on the left. There is a 5 mm calculus proximal left ureter. No ureteral calculi seen. There are mild atherosclerotic calcifications. Pelvis: Stable small fat-containing periumbilical hernia and small fat-conta ining inguinal hernias. Prostate is enlarged. Urinary bladder is nondistended. There is sigmoid diverticulosis. No acute diverticulitis. No bowel inflammation or obstruction. No free fluid or free air. No grossly enlarged adenopathy. Osseous structures: Stable laminectomy and metallic fusion from L3 through S1. IMPRESSION: 5 mm calculus proximal left ureter causes mild left hydronephrosis. Otherwise as described. ACT 112: Negative or not required by law. The above report was generated using voice recognition software. It may contain grammatical, syntax or spelling errors. Electronically signed by: Seth Carey M.D. 12/16/2024 2:49 PM Dictated: 12/16/241442 Transcribed: 12/16/241442 PG Care Time/CCT Total # of Minutes Spent Total Time Spent with Patient: Total time spent is greater than 50% in coordination of care (as documented) at patient's floor/unit and/or counseling patient: Coding Level of Care Code 95425 INT INP/OBS CARE 3/75MIN Diagnoses Kidney stones N20.0 Type 2 diabetes mellitus without complication, without long-term current use of insulin E11.9 Diabetes mellitus terminal press operator insulin use: without custodial use Diabetes mellitus complication status: without complication Hyperlipidemia E78.5 DVT (deep venous thrombosis) I82.409 GERD (gastroesophageal reflux disease) K21.9 (2) DM2 (diabetes mellitus, type 2) Diabetes mellitus custodial insulin use: without custodial use Diabetes mellitus complication status: without complication Qualified Code(s): E11.9 - Type 2 diabetes mellitus without complications
[2024-12-20 03:58] LABS: Appearance Urine Turbid (Clear); Bacteria Urine Automated 1+ (None Seen); Epithelial Cell Urine Auto 0-2 /hpf (0-2); Glucose Urine UA Negative (Negative); WBC Urine Automated >50 /hpf (0-5)
[2024-12-20] MEDS: cefTRIAXone SODIUM 2,000 MG/50 ML BAG IV STA (04:31)
[2024-12-20] MEDS ORDERED: cefTRIAXone SODIUM 2,000 MG/50 ML BAG IV STA (04:40)
[2024-12-20] MEDS ORDERED: ACETAMINOPHEN 325 MG TAB PO PRN (04:56)
[2024-12-20] MEDS ORDERED: DEXTROSE 50% 50 ML SYRINGE IV PRN (04:56)
[2024-12-20] MEDS ORDERED: GLUCOSE 40% GEL 15 GM TUBE PO PRN (04:56)
[2024-12-20] MEDS ORDERED: GLUCOSE 10 TAB/TUBE PO PRN (04:56)
[2024-12-20] MEDS ORDERED: ONDANSETRON INJ 2 MG/ML 2 ML VIAL IV PRN ×2 (04:56→14:20)
[2024-12-20] MEDS ORDERED: GLUCAGON FOR INJ 1 MG VIAL SQ PRN (04:56)
[2024-12-20] MEDS ORDERED: CARBOHYDRATES FOR HYPOGLYCEMIA PO PRN (04:56)
--- NOTE | 2024-12-20 05:02 | Ultrasound Report ---
EXAM: US renal/blad retro comp CLINICAL HISTORY: flank pain, known stone. TECHNIQUE: A renal ultrasound was performed using grayscale and duplex imaging. COMPARISON: 09/21/2021, US Renal. FINDINGS: Right Kidney: The right kidney measures 11.8 cm No cyst, hydronephrosis, calculi, or masses were identified. Renal parenchymal echogenicity is normal. Cortical thickness: Within normal. The renal pelvis is within normal. Left Kidney: The left kidney measures 11.7 cm Mild fullness/mildly dilated pelvicalyceal system of left kidney, with possible prominent proximal ureter as per image: 270 (27/35) An echogenic focus without gross posterior shadowing is seen at the lower calyx as per image: 181(18/35) No cysts or masses were identified. Renal parenchymal echogenicity is normal. Cortical thickness: Within normal. Urinary bladder: The urinary bladder is partially filled at the time of examination. No gross abnormality seen in the visualized part. Bilateral ureteral jets are seen. Apparent wall thickening was seen, which may be due to inadequate bladder distention or cystitis. IMPRESSION: 1. Mild fullness/mildly dilated pelvicalyceal system of the left kidney, with possible prominent proximal ureter as per images. This may be due to infection; however, if there is suspicion of obstruction lower down, a CT scan KUB may be obtained (new). 2. Right renal echogenic focus without gross posterior shadowing at the lower renal sinus, which may be a calculus or sinus fat; this was not visualized in prior images. 3. Grossly normal right kidney. 4. Inadequately distended urinary bladder at the time of examination. Apparent wall thickening was seen, which may be due to inadequate bladder distention or cystitis. Suggest correlation with urine R/E. Electronically signed by Mike Akers 12-20-2024 05:02 AM
[2024-12-20] MEDS: LACTATED RINGER'S 1,000 ML IV SCH (05:03)
[2024-12-20] MEDS: HYDROmorphone INJ 0.5 MG/0.5 ML SYR IV PRN ×2 (05:04→17:54)
[2024-12-20] MEDS: INSULIN ASPART PER UNIT CHARGE SC SCH (08:31)
--- NOTE | 2024-12-20 12:02 | XRay Report ---
EXAM: Radiograph of the Abdomen 1 View INDICATION: Pain TECHNIQUE: Frontal supine view of the abdomen/pelvis. COMPARISON: 12/16/2024 FINDINGS: Limitations: None. Gastrointestinal tract: Moderate amounts of stool throughout the colon most copious on the right is unchanged. No distention. Organs: 4 mm calcific density in the expected location of the distal left ureter likely reflects migration of the previously noted stone. Bones/joints: Intact posterior lumbosacral hardware. No acute osseous abnormality. Soft tissues: No abnormality noted. No radiopaque foreign body noted. Vasculature: Multiple pelvic phleboliths noted. IMPRESSION: 4 mm calcific density in the expected location of the distal left ureter likely reflects migration of the previously noted stone. ACT 112: N/A Electronically signed by Cira Villa 12-20-2024 12:01 PM
--- NOTE | 2024-12-20 12:55 | Urology Consultation ---
Date of Consultation December 20, 2024 Assessment & Plan (1) Acute UTI: (2) Hydronephrosis: (3) Ureterolithiasis: (4) Back pain: (5) JAMES (acute kidney injury): Plan Patient mated with obstructing left ureteral stone. Patient has history of stone disease and previously had gone under intervention. Patient independently assessed, examined, interviewed, and evaluated. Patient's vitals and labs were all reviewed. Pertinent values in the HPI and plan section. Hemoglobin was 14.0. White count 9.71. Creatinine 1.13. This is mildly elevated. Imaging was reviewed interpreted by myself. Significant hydronephrosis of the left side. Bilateral stones. Moderate sized stone in the mid ureter causing hydronephrosis. Otherwise agree with read. Vitals were reviewed. Currently afebrile. Blood pressure 148/88. Pulse 73. Respirations 18. Oxygen saturation 95% on room air. Temperature 36.9. No fever recorded per records. Discussed findings extensively with patient and family. Reviewed with nursing team as well as consulting physicians/team. Patient's complicated medical and surgical history was reviewed and summarized above. Patient's surgical, medical, social, and family history were all reviewed with pertinent values as above. Patient's previously had to undergo intervention of stones. Had previously had left stones that were treated. Discussed patient's current diagnosis as well as concerns and issues. Reviewed different options moving forward. Discussed potential risks and benefits as well as possible options and concerns. Reviewed potential surgical options and interventions. Discussed potential issues and concerns related to intervention. Risk and benefits were discussed extensively with patient and any available family. Discussed potential risks related to anesthesia. Discussed risks of bleeding infection and injury. Discussed options for conservative measure and maximum expulsion medical therapy and symptom controlled. Discussed ESWL. Discussed Ureteroscopy with extraction and/or laser lithotripsy. Risks and benefits were discussed. Stone free rates were also discussed as well as possibility of multiple procedures. Ureteral stents were discussed as well as post-operative issues and pain management. All questions were answered. Risks and benefits discussed at length for procedure. These include bleeding, infection, injury to surrounding tissues or organs, and risks associated with anesthesia. Patient states understanding and agrees to proceed. Will sign consent and proceed. Plan for Cystoscopy with stent. Possible Left Ureteroscopy and stone treatment. History of Present Illness Attending Physician: Speedy Pedersen MD History of Present Illness New consultation for patient with stone, discomfort, obstruction, and ill feelings. Patient has history of stone disease. Had stone treated in 2021. Patient developed sudden onset of pain into flank going down and radiating into groin and back in waves comes and goes. Can be severe at times. Discussed and reviewed patient's family history for any history of stone disease . Also, discussed patient's medical surgery history especially related to any history of urinary issues or stone disease. Patient was admitted and is undergoing observation. Patient has not been following with anyone from urology. Had sudden increase in symptoms of bother. Has not felt like he has passed a stone. Was admitted overnight due to severe worsening pain and discomfort. No fevers or chills. Allergies Allergy/AdvReac Type Severity Reaction Status Date / Time morphine Allergy Itching Verified 10/08/24 23:43 Home Medications Medication Instructions Recorded Confirmed Type doxazosin 4 mg tablet 4 mg PO DAILY 07/26/18 11/02/23 History pantoprazole 40 mg tablet,delayed 40 mg PO DAILY 07/26/18 11/02/23 History release simvastatin 20 mg tablet 20 mg PO HS 07/26/18 11/02/23 History ondansetron 4 mg disintegrating 4 mg PO Q6H PRN nausea and 09/16/21 09/22/21 Rx tablet vomiting #15 tabs oxycodone 5 mg tablet 5 mg PO Q4H PRN pain #15 tabs 09/16/21 09/22/21 Rx lisinopril 2.5 mg tablet 2.5 mg PO DAILY 09/19/21 09/22/21 History oxycodone 5 mg tablet 10 mg (2 x 5 mg) PO Q6H PRN pain 09/19/21 09/22/21 Rx #14 tabs apixaban 5 mg (74 tabs) tablets in 5 mg PO BID #74 ea 09/20/21 09/22/21 Rx a dose pack (Eliquis) glipizide 2.5 mg-metformin 500 mg 2.5 - 500 tab PO DAILY Diabetes 09/22/21 11/02/23 History tablet oxybutynin chloride 5 mg tablet 5 mg PO BID PRN bladder spasms #20 09/25/21 Rx tabs tamsulosin 0.4 mg capsule (Flomax) 0.4 mg PO DAILY #10 caps 09/25/21 Rx oxycodone 5 mg tablet 5 mg PO Q6H PRN pain #30 tabs 11/05/23 Rx tramadol 50 mg tablet 50 mg PO Q6H PRN pain, moderate 11/05/23 Rx #30 tabs tamsulosin 0.4 mg capsule (Flomax) 0.4 mg PO DAILY #14 caps 12/16/24 Rx Patient History Medical History Obesity Spinal stenosis of lumbar region with radiculopathy GERD (gastroesophageal reflux disease) BPH (benign prostatic hyperplasia) DM2 (diabetes mellitus, type 2) Hyperlipidemia DVT (deep venous thrombosis) Kidney stones Surgical History History of back surgery Family History Other Family history non-contributory Social History Smoking Status: Never smoker Tobacco Type: Cigarettes Second Hand Exposure: No; Do You Dip or Chew Tobacco: No; Hx Alcohol Use: No Hx Substance Use: No Preferred Language: Czech Communication Ability: Effective High Value Associate Required: No Beliefs That Will Affect Care: None marital status: Current Living Situation: Spouse current occupational status: employed Feels Safe at Home: Yes Assistive Devices: None Review of Systems Review of Systems: All systems reviewed & are unremarkable except as noted in HPI & below Physical Exam Physical Exam: General: Alert and oriented x 3 in no acute distress. Obese HEENT: Normocephalic Atraumatic. Inspection normal. Cranial Nerves 2-12 Grossly intact. Nares are clear. Neck is supple. Normal inspection of face. Normal inspection of neck. Neurologic: No deficits on inspection. Baseline for motor function and sensory. Psychologic: Normal affect. Respiratory: Nonlabored. No use of accessory muscles. No tachypnea or dyspnea. Cardiovascular: No tachycardia Skin: [place] and Dry. No rashes or visible lesions. Extremities: Moving without issues. No motor deficits on inspection Lymphatics: No edema Abdomen: Soft Non-distended.No rebound or guarding. Results & Data Vital Signs (Past 12 Hours) Vital Signs Temp Pulse Pulse Resp BP BP Pulse Ox 12/20/24 11:43 36.9 C 73 18 148/88 H 95 12/20/24 08:10 36.7 C 69 18 144/89 H 97 12/20/24 05:19 36.4 C L 74 18 145/89 H 97 12/20/24 04:40 69 19 151/92 H 95 12/20/24 03:03 37.1 C 94 H 20 149/85 H 100 O2 Del Method 12/20/24 11:43 Room Air 12/20/24 08:10 Room Air 12/20/24 05:19 Room Air 12/20/24 04:40 Room Air 12/20/24 03:03 Room Air PG Care Time/CCT Total # of Minutes Spent Total Time Spent with Patient: Total time spent is greater than 50% in coordination of care (as documented) at patient's floor/unit and/or counseling patient: Coding Level of Care Code 45632 INT INP/OBS CARE 3/75MIN Diagnoses Acute UTI N39.0 Hydronephrosis N13.30 Ureterolithiasis N20.1 Back pain M54.9 Back pain location: low back pain Chronicity: unspecified JAMES (acute kidney injury) N17.9 (4) Back pain Back pain location: low back pain Chronicity: unspecified
[2024-12-20] MEDS ORDERED: PROPOFOL IV EMULSION 10 MG/ML 20 ML VIAL IV ONE (13:53)
[2024-12-20] MEDS ORDERED: MIDAZOLAM HCL 1 MG/ML 2ML VIAL ONE (13:53)
[2024-12-20] MEDS ORDERED: ONDANSETRON INJ 2 MG/ML 2 ML VIAL ONE (13:53)
[2024-12-20] MEDS ORDERED: LIDOCAINE 2% 2 ML VIAL/AMP(20MG/ML) INFIL ONE (13:57)
[2024-12-20] MEDS ORDERED: ATROPINE SULFATE 0.1 MG/ML 10ML SYR IV PRN (14:20)
--- NOTE | 2024-12-20 14:20 | Anesthesiology Consultation ---
Date of Service December 20, 2024 Assessment & Plan (1) Encounter for pre-operative examination: Chart Review Chart Review: Acceptable Risk for Surgery and Patient NOT seen in Pre Admission Testing Consults Requested none History Surgery Operation Date: 12/20/24 15:00 Proposed Procedures p Cystoscopy Retrograde - Reji Sarmiento DO Height/Weight Height: 6 ft Weight: 110 kg Allergies Allergy/AdvReac Type Severity Reaction Status Date / Time morphine Allergy Itching Verified 10/08/24 23:43 Medications Home Medications Medication Instructions Recorded Confirmed Last Taken doxazosin 4 mg tablet 4 mg PO DAILY 07/26/18 11/02/23 09/22/21 pantoprazole 40 mg tablet,delayed 40 mg PO DAILY 07/26/18 11/02/23 09/22/21 release simvastatin 20 mg tablet 20 mg PO HS 07/26/18 11/02/23 09/21/21 ondansetron 4 mg disintegrating 4 mg PO Q6H PRN nausea and 09/16/21 09/22/21 09/22/21 tablet vomiting #15 tabs oxycodone 5 mg tablet 5 mg PO Q4H PRN pain #15 tabs 09/16/21 09/22/21 09/21/21 lisinopril 2.5 mg tablet 2.5 mg PO DAILY 09/19/21 09/22/21 09/22/21 oxycodone 5 mg tablet 10 mg (2 x 5 mg) PO Q6H PRN pain 09/19/21 09/22/21 Unknown #14 tabs apixaban 5 mg (74 tabs) tablets in 5 mg PO BID #74 ea 09/20/21 09/22/21 09/22/21 09:00 a dose pack (Eliquis) glipizide 2.5 mg-metformin 500 mg 2.5 - 500 tab PO DAILY Diabetes 09/22/21 11/02/23 09/22/21 tablet oxybutynin chloride 5 mg tablet 5 mg PO BID PRN bladder spasms #20 09/25/21 Unknown tabs tamsulosin 0.4 mg capsule (Flomax) 0.4 mg PO DAILY #10 caps 09/25/21 Unknown oxycodone 5 mg tablet 5 mg PO Q6H PRN pain #30 tabs 11/05/23 Unknown tramadol 50 mg tablet 50 mg PO Q6H PRN pain, moderate 11/05/23 Unknown #30 tabs tamsulosin 0.4 mg capsule (Flomax) 0.4 mg PO DAILY #14 caps 12/16/24 Unknown Active Medications Generic Name Dose Route Start Last Admin Trade Name Freq PRN Reason Stop Dose Admin Hydromorphone HCl 0.5 mg 12/20/24 04:56 12/20/24 05:04 Hydromorphone Inj 0.5 Mg/0.5 Ml Syr IV 01/03/25 04:55 0.5 mg Q3H PRN Administration Pain (6,7,8,9,10) Lactated Ringer's 1,000 mls @ 125 mls/hr 12/20/24 04:56 12/20/24 05:03 Lr IV 12/20/24 20:55 125 mls/hr .Q8H RYLEE Administration Insulin Aspart 0 units 12/20/24 07:30 12/20/24 08:31 Insulin Aspart Per Unit Charge SC 01/19/25 07:29 Not Given ACHS RYLEE Past Medical History Medical History Obesity Spinal stenosis of lumbar region with radiculopathy GERD (gastroesophageal reflux disease) BPH (benign prostatic hyperplasia) DM2 (diabetes mellitus, type 2) Hyperlipidemia DVT (deep venous thrombosis) Kidney stones Past Family History Family History Other Family history non-contributory Past Surgical History Surgical History History of back surgery Social History Smoking Status: Never smoker Do You Dip or Chew Tobacco: No Hx Alcohol Use: No Alcohol type: wine alcohol intake frequency: holidays/special occasions only Hx Substance Use: No substance use type: does not use Physical Exam Vital Signs Last Vital Signs Temp 98.4 F 12/20/24 11:43 Pulse 73 12/20/24 11:43 Resp 18 12/20/24 11:43 BP 148/88 H 12/20/24 11:43 Pulse Ox 95 12/20/24 11:43 O2 Del Method Room Air 12/20/24 11:43 Testing Laboratory Results 12/20/24 03:15 12/20/24 03:15 Urine Color Yellow 12/20/24 03:10 Urine Appearance Turbid (Clear) A 12/20/24 03:10 Urine pH 5.5 (4.5-7.5) 12/20/24 03:10 Ur Specific [place] 1.022 (1.000-1.030) 12/20/24 03:10 Urine Protein Trace (Negative) H 12/20/24 03:10 Urine Glucose (UA) Negative (Negative) 12/20/24 03:10 Urine Ketones Trace (Negative) H 12/20/24 03:10 Urine Nitrite Negative (Negative) 12/20/24 03:10 Ur Leukocyte Esterase 3+ (Negative) H 12/20/24 03:10 Urine WBC (Auto) >50 /hpf (0-5) H 12/20/24 03:10 Urine RBC (Auto) 11-20 /hpf (0-2) H 12/20/24 03:10 U Hyaline Cast (Auto) 11-20 /lpf (0-2) H 12/20/24 03:10 U Epithel Cells (Auto) 0-2 /hpf (0-2) 12/20/24 03:10 Urine Bacteria (Auto) 1+ (None Seen) H 12/20/24 03:10 12/20/24 08:25 POC Glucose 100 H
[2024-12-20] MEDS: TAMSULOSIN HCL 0.4 MG CAP PO SCH (15:10)
--- NOTE | 2024-12-20 15:18 | Communication Note ---
Date of Service: December 20, 2024 Patient seen and examined but admitted the same day therefore I will not be billing for this encounter. XR KUB ordered to see if ureterolithiasis still in place as patient not sure from his symptoms. No fever or chills. Awaiting urology evaluation.
[2024-12-20] MEDS: DIATRIZOATE MEGLUMINE 30% 100ML VIAL INSTIL ONE (16:38)
--- NOTE | 2024-12-20 16:44 | Operative Report ---
[facility] Post Operative Report Pre & Post Diagnosis Operation Date: 12/20/24 15:00 Pre-Op Diagnosis: (1) Acute urinary tract infection (2) Hydronephrosis (3) Ureterolithiasis (4) Back pain (5) Acute kidney injury Post-Op Diagnosis: (1) Acute urinary tract infection (2) Hydronephrosis (3) Ureterolithiasis (4) Back pain (5) Acute kidney injury I identified the patient and participated in the time-out.: Yes Procedure Operation Date: 12/20/24 15:00 Actual Procedures p Cystoscopy with Left Ureteroscopy, Left Retrograde Pyelogram, Laser Destruction and Basket Extraction of Stone(Left) - Reji Sarmiento DO Surgeon Reji Sarmiento, II, DO Behavioral Health Clinician None Estimated Blood Loss 1 Findings Consistent with Post-Op Diagnosis Stones destroyed to dust and small fragments and larger fragments removed. Specimens Stone Fragments Drains None Anesthesia Type General Complications none Disposition Disposition: Recovery Room Indications Patient with bothersome stones. Risks and benefits discussed at length. Description of Procedure Patient was consented and brought back to the operating room. Patient was placed under anesthesia in the supine position and moved to the dorsal lithotomy position. Patient was prepped and draped in the regular sterile fashion. A time out was completed. A 30degree Cystoscope was placed into the bladder and the entire bladder was examined. The UO's were identified. The UO was cannulized with a catheter and a retrograde pyelogram was completed. A wire was then placed. The Rigid ureteroscope was taken into the ureter. The stone was identified. A laser fiber was selected and the stones were pulverized to dust and small fragments. Larger fragments were grasped and removed and sent for analysis. A second wire was then placed and the rigid scope removed. The flexible scope was then taken over the second wire and advanced to the proximal ureter and renal pelvis. The entire pelvis was examined and the stones were further treated with the laser and basketed for removal. The entire area was once again examined. No residual large fragments or areas of concern were noted. The scope was slowly removed with the wire left in place. Contrast was placed through the scope for a pyelogram . The entire ureter was examined as the scope was slowly removed. No obstructions or other areas of concern were noted. At this point the entire ureter appeared to be clear of any injury or other issues and no residual stones were noted. Patient had specifically requested to avoid stenting if possible. Based on the visualization it was determined that it would be acceptable risk to hold off on stent. The wire was then removed and drainage films by fluoroscopy were assessed. The kidney appeared to be draining well without major issue. The bladder was emptied. The scope was removed. The patient was cleaned, aroused from anesthesia, and transferred to the pacu in stable condition having tolerated the procedure well with no complications. I was present and participated in all aspects of the procedure. The patient will be monitored in the PACU until transferred. Plan to follow-up in approximately 6 to 8 weeks to reimage and reassess with SIRI I attest to the content of the Intraoperative Record and any orders documented therein. Any exceptions are noted below.
--- NOTE | 2024-12-20 17:05 | Anesthesiology Progress Note ---
Date of Service December 20, 2024 Anesthesia Post Procedure Vital Signs Vital Signs: Temp Pulse Pulse Pulse Resp BP BP 12/20/24 16:55 73 10 L 146/98 H 12/20/24 16:48 96.8 F L 81 14 152/96 H 12/20/24 11:43 98.4 F 73 18 148/88 H 12/20/24 08:10 98.1 F 69 18 144/89 H 12/20/24 05:19 97.5 F L 74 18 145/89 H 12/20/24 04:40 69 19 151/92 H 12/20/24 03:03 98.8 F 94 H 20 149/85 H Pulse Ox O2 Del Method O2 Flow Rate 12/20/24 16:55 98 Oxymask 3 12/20/24 16:48 98 Oxymask 5 12/20/24 11:43 95 Room Air 12/20/24 08:10 97 Room Air 12/20/24 05:19 97 Room Air 12/20/24 04:40 95 Room Air 12/20/24 03:03 100 Room Air Pain Intensity Left Flank: Pain Intensity: 6 Transfer of Care Handoff Completed per policy Notes Mental Status: alert / awake / arousable and participated in evaluation Patient Amnestic to Procedure: Yes Nausea / Vomiting: adequately controlled Pain: adequately controlled Airway Patency, RR, SpO2: stable & adequate BP & HR: stable & adequate Hydration State: stable & adequate Anesthetic Complications: no major complications apparent and Pt Satisfied with anesthetic care
--- NOTE | 2024-12-20 17:40 | Fluoroscopy Report ---
FL retrograde includes kub CLINICAL HISTORY: CYSTO COMPARISON STUDY: None FLUOROSCOPY TIME: 19 seconds FLUOROSCOPY IMAGES: 4 EXPOSURE DOSE: 7 mGy FINDINGS: Fluoroscopy was provided for urologic procedure. IMPRESSION: Intraoperative fluoroscopy. ACT 112: Negative or not required by law. Electronically signed by: Pavan Carey M.D. 12/20/2024 5:38 PM
[2024-12-20] MEDS: HYDROmorphone INJ 1 MG/ML SYRINGE ONE (18:04)
[2024-12-20 19:30] VITALS: RESP 20
[2024-12-20] MEDS: SIMVASTATIN 20 MG TAB PO SCH (22:08)
[2024-12-21 00:18] VITALS: O2SAT 96
[2024-12-21] MEDS: Continuous Glucose Monitor SCH (00:33)
[2024-12-21 06:13] LABS: Hematocrit (blood only) 38.8 % (42.0-52.0); Hemoglobin 13.1 g/dl (14.0-18.0); Mean Corpuscular Hemoglobin 29.3 pg (25.0-34.0); Mean Corpuscular Volume 86.8 fL (80.0-100.0); Platelet Count 271 K/uL (130-400); RDW Standard Deviation 39.8 fL (36.4-46.3); Red Blood Count 4.47 M/uL (4.70-6.10); White Blood Count 7.20 K/ul (4.8-10.8)
[2024-12-21 06:33] LABS: Anion Gap 4.0 (3-11); Blood Urea Nitrogen 13.0 mg/dl (6-23); Calcium 8.6 mg/dl (8.6-10.3); Carbon Dioxide 29.0 mmol/L (21-32); Chloride 106.0 mmol/L (98-107); Creatinine Clr Calc Pharmacy 87.8 ml/min; Glucose 90.0 mg/dl (70-99(Fasting)); Potassium 4.0 mmol/L (3.5-5.1); Sodium 139.0 mmol/L (136-145)
[2024-12-21 07:37] LABS: Hemoglobin A1C 5.5 % (4.5-5.6)
[2024-12-21 07:44] VITALS: BP 146/88; PULSE 87; TEMP 97.7
[2024-12-21] MEDS: cefTRIAXone SODIUM 2,000 MG/50 ML BAG IV SCH (09:43)
--- NOTE | 2024-12-21 10:06 | Urology Progress Note ---
Date of Service December 21, 2024 Assessment & Plan (1) Hydronephrosis: (2) Ureterolithiasis: Plan: - Pt POD#1 s/p cystoscopy, left ureteroscopy and laser destruction and extraction of stone - Doing well, progressing as expected - Afebrile, hemodynamically stable - Lab work reviewed - creatinine 1.16, WBC 7.2 - Okay to d/c from perspective when medically stable - Expected clinical course reviewed, all questions answered - Will arrange outpatient follow-up with our service - will sign off, please contact our service with any additional questions or concerns Admission and Anticipated Discharge Date Admission Date: December 20, 2024 Subjective Patient seen and examined at bedside this morning. No acute issues overnight. He is awake and sitting up at the side of the bed. He reports some mild left flank discomfort after procedure, now resolved. No fever or chills. No nausea or vomiting. Review of Systems Constitutional: as per Subjective / HPI Genitourinary: + as per Subjective / HPI Physical Exam Constitutional: well developed and well nourished; no acute distress Respiratory: normal respiratory effort; no respiratory distress and no labored breathing Gastrointestinal (Abdomen): Inspection/Auscultation: abdomen normal to inspection Musculoskeletal: Head/Neck/Chest: normocephalic Neurologic: moves all extremities and awake Psychiatric: Orientation: alert and oriented x 3 Results & Data Vital Signs (Past 12 Hours) Vital Signs Temp Pulse Resp BP Pulse Ox O2 Del Method 12/21/24 07:43 36.5 C 87 20 146/88 H 96 Room Air 12/21/24 00:17 37.2 C 94 H 20 136/77 96 Room Air PG Care Time/CCT Total # of Minutes Spent Total Time Spent with Patient: Total time spent is greater than 50% in coordination of care (as documented) at patient's floor/unit and/or counseling patient: Coding Level of Care Code 52523 SUB INP/OBS CARE 04/11MIN Diagnoses Hydronephrosis N13.30 Ureterolithiasis N20.1
--- NOTE | 2024-12-21 11:34 | Discharge Summary ---
Discharge Summary Date of Service December 21, 2024 Principal Dx & Hospital Course #1 = Principal Diagnosis (1) Kidney stones: (2) DM2 (diabetes mellitus, type 2): (3) Hyperlipidemia: (4) DVT (deep venous thrombosis): (5) GERD (gastroesophageal reflux disease): Plan Pavan Pereira is a 59 year old male admitted to [facility] from December 20 - 2024 due to left flank pain. He was diagnosed with a urine tract infection based on urinalysis with obstructing ureterolithiasis. This was treated with intravenous ceftriaxone and Laser Destruction and Basket Extraction of Stone performed by Dr Sarmiento on December 20, 2024. Urine culture is still pending at discharge. He will be discharged on cefdinir which you should start tomorrow morning but if urine culture subsequently resistant to this he will be called to change this. Notes For Next Care Provider No routine PCP follow-up required Routine follow-up with urology Medication Changes From Visit Cefdinir started for suspected urine tract infection with urine culture pending Multiple other medications that appear changed on discharge summary due to in correct medication reconciliation on admission and just reflect what he is currently taking Admission HPI Per Admitting Provider Pavan Pereira is a pleasant 59-year-old male with history of obesity, GERD, diabetes, hyperlipidemia and BPH as well as prior renal stones presenting with left-sided flank pain. Patient with history of recurrent kidney stones. Presented to the ER initially on 12/16/2024 with left-sided flank pain. Had a CT of the abdomen which confirmed a 5 mm calculus in the proximal left ureter. Izabel hopkins has been taking oxycodone 5 mg every 4 hours at home as well as Tylenol with no relief. Today during the day his pain felt improved however, around 20: 00 it came on quite severely. He reports having some difficulty urinating today as well. he had some chills and nausea otherwise denies fever, chest pain, cough, shortness of breath, abdominal pain In the ER he is afebrile, hypertensive otherwise stable ER course: Normal saline 500 Flomax 0.4 mg Toradol 10 mg IV Zofran 4 mg IV Discharge Exam Respiratory normal respiratory effort, lungs clear to auscultation Cardiovascular RRR, no murmur, no edema Genitourinary + CVA tenderness (Mild left) Discharge Plan Discharge Items Patient Disposition: Home - Self-Care Reason For Visit: LEFT FLANK PAIN Discharge Diagnosis: Ureterolithiasis (kidney stone) Urine tract infection Condition on Discharge: Good Activity: Resume your previous activity Non-emergency contact: Urologist Call non-emergency contact if: you have any medication questions and your symptoms worsen Follow-up/Referrals: Karly Oliveros DO [Primary Care Provider] - 12/28/24 12:45 pm (Appt w/ Dr. Velazquez) Diet: Carb Consistent or DM2 Addtl Attending Provider Instructions: You were admitted to [facility] from December 20 - 2024 due to left flank pain. You were diagnosed with a urine tract infection with obstructing ureterolithiasis. This was treated with intravenous ceftriaxone (antibiotic) and Laser Destruction and Basket Extraction of Stone performed by Dr Sarmiento on December 20, 2024. Urine culture is still pending at discharge. You will be discharged on cefdinir (antibiotic) which you should start tomorrow morning but if urine culture subsequently resistant to this you will be called to change this. Pending Studies at Discharge: Yes (urine culture, stone analysis) Stand-Alone Forms: My [facility], Smoking Cessation Medications and DC Order Prescriptions: New cefdinir 300 mg capsule 300 mg PO BID 3 Days Qty: 6 0RF Mounjaro 12.5 mg/0.5 mL pen injector 12.5 mg subcut WK Qty: 2 0RF Rx Instructions: Sater Continued pantoprazole 40 mg tablet,delayed release (DR/EC) 40 mg PO DAILY doxazosin 4 mg tablet 4 mg PO DAILY Patient Comments: patient unsure of strength. found 4mg in external med history. ondansetron 4 mg tablet,disintegrating 4 mg PO Q6H PRN (Reason: nausea and vomiting) Qty: 15 0RF Discontinued tamsulosin [Flomax] 0.4 mg capsule 0.4 mg PO DAILY Qty: 10 0RF oxybutynin chloride 5 mg tablet 5 mg PO BID PRN (Reason: bladder spasms) Qty: 20 0RF simvastatin 20 mg tablet 20 mg PO HS oxycodone 5 mg tablet 5 mg PO Q4H PRN (Reason: pain) Qty: 15 0RF Rx Instructions: Initial Treatment lisinopril 2.5 mg tablet 2.5 mg PO DAILY oxycodone 5 mg tablet 10 mg PO Q6H PRN (Reason: pain) Qty: 14 0RF Rx Instructions: Initial Treatment Eliquis 5 mg (74 tabs) tablets,dose pack 5 mg PO BID Qty: 74 0RF glipizide-metformin 2.5-500 mg tablet 2.5 - 500 tab PO DAILY tramadol 50 mg tablet 50 mg PO Q6H PRN (Reason: pain, moderate) Qty: 30 0RF oxycodone 5 mg tablet 5 mg PO Q6H PRN (Reason: pain) Qty: 30 0RF tamsulosin [Flomax] 0.4 mg capsule 0.4 mg PO DAILY Qty: 14 0RF Discharge Orders: Discharge Order (Routine); Ordered 12/21/24 Ordered By: Speedy Pedersen Admission Data Admit Date/Time: 12/20/24 03:51 Attending Provider: Speedy Pedersen Admit Provider: Hermelinda Ross Primary Care Provider: Karly Oliveros Other Providers: Hermelinda Ross; Reji Sarmiento Other Interventions: Discharge Summary Assessment (RN) Last Done: 12/21/24 11:44 Hospital Stay Data Consultations 12/20/24 03:32 ED Decision to Admit Stat 12/20/24 03:51 Consult Urology Routine Procedures Performed Operation Date: 12/20/24 15:00 Actual Procedures p Cystoscopy, Left Ureteronephroscopy, Left Retrograde Pyelogram, Laser Destruction and Basket Extraction of Stone(Left) - Reji Sarmiento DO Diagnostic Imagining Performed 12/20/24 FL retrograde includes kub Routine 12/20/24 03:14 US Renal Bladder [US renal/blad retro comp] Stat Pending Results Patient Have Any Pending Studies at Discharge: Yes (urine culture, stone analysis) Discharge Instructions Given to Patient (Per Discharging Provider) You were admitted to [facility] from December 20 - 2024 due to left flank pain. You were diagnosed with a urine tract infection with obstructing ureterolithiasis. This was treated with intravenous ceftriaxone (antibiotic) and Laser Destruction and Basket Extraction of Stone performed by Dr Sarmiento on December 20, 2024. Urine culture is still pending at discharge. You will be discharged on cefdinir (antibiotic) which you should start tomorrow morning but if urine culture subsequently resistant to this you will be called to change this. Total Time Total Time Spent Total Time Spent (In Minutes): 35 Total Time Includes: Examination of the Patient, Discharge Planning, Medication Reconciliation and Communication With Other Providers Coding Level of Care Code 91056 INP/OBS DISCH >30 MIN Diagnoses Kidney stones N20.0 Type 2 diabetes mellitus without complication, without long-term current use of insulin E11.9 Diabetes mellitus complication status: without complication Diabetes mellitus roasterman insulin use: without longterm use Hyperlipidemia E78.5 DVT (deep venous thrombosis) I82.409 GERD (gastroesophageal reflux disease) K21.9
== END 2024-12-21 12:06 | disposition home or self-care (01) | DRG 690 ==
LOC: ED 02:59 → SUATTDRO 03:51 → 2W 03:51